=== PATIENT | female | born 1995 | race Hispanic/Latino ===

== ENCOUNTER 2021-03-16 13:52 | Emergency (ER) | payer BC, SELFPAY ==
--- NOTE | ~2021-03-16 | XR_ITS ---
EXAMINATION: XR foot RT min 3V EXAM DATE: 03/16/2021 14:20 INDICATION: rt 2nd toe pain from injury 2 weeks ago. TECHNIQUE: Right foot dorsoplantar, lateral and oblique projections obtained and reviewed. There is no prior study for comparison. FINDINGS: There is subacute fracture of the right 2nd metatarsal neck, with callus some immature call us formation, evidence of routine healing given history above. Essentially nondisplaced, and in anato jose alignment. No other fracture identified. No radiopaque foreign bodies identified. IMPRESSION: Right 2nd metatarsal neck subacute fracture. Reviewed, dictated and finalized at location B.
--- NOTE | 2021-03-16 14:03 | ED.LOWEXIN ---
HPI - Extremity Injury (Lower) General Chief Complaint: Extremity Injury, Lower Stated Complaint: right foot pain Time Seen by Provider: 03/16/21 14:03 Source: patient and RN notes reviewed Mode of arrival: ambulatory Limitations: no limitations History of Present Illness HPI Narrative: 25-year-old female presents to the ER with complaints of second toe right foot pain and states it is crooked, does not touch the ground. States that she kicked a bar 2 weeks ago and thought she just dislocated the toe at that time. Had it wrapped and states that the swelling has gone down but it still looks crooked to her. Related Data Home Medications Medication Instructions Recorded Confirmed acyclovir 400 mg PO BID PRN 03/16/21 03/16/21 metformin 1,000 mg PO BID 03/16/21 03/16/21 Allergies Allergy/AdvReac Type Severity Reaction Status Date / Time No Known Allergies Allergy Verified 03/16/21 14:25 Review of Systems Review of Systems: All systems reviewed & are unremarkable except as noted in HPI and below Constitutional: Constitutional: Reports no additional constitutional complaints, Denies chills and Denies fever(s) Eyes: Eyes: Reports no additional eye complaints ENT: Reports system reviewed and no additional complaints, except as documented Respiratory: Respiratory: Reports no additional respiratory complaints Musculoskeletal: Musculoskeletal: Reports as per HPI (Second toe right foot pain, swelling, crooked. ) Integumentary/Breasts: Skin/Breast: Reports system reviewed and no additional complaints, except as docu and Denies rash Neurologic: Reports system reviewed and no additional complaints, except as documented Psychiatric: Psychiatric: Reports no additional psychiatric complaints Allergic/Immunologic: Allergic/Immunologic: Reports no additional allergic/immunologic complaints PMFSH Past Medical History Medical History (Updated 03/17/21 @ 14:49 by Emma Quach) Diabetes Herpes Surgical History Surgical History (Updated 03/17/21 @ 14:45 by Emma Quach) No significant past surgical history Social History Social History (Updated 03/17/21 @ 14:45 by Emma Quach) Living arrangements: with family Exam Const: General: healthy appearing, no acute distress and alert Nutritional Appearance: well nourished Orientation/consciousness: patient oriented x3 Limitations: no limitations HENMT: Head: normal to inspection Eyes: Conjunctivae: conjunctivae normal Pupils: Equal, round and reactive pupils present Neck: Neck: normal visual inspection Chest: Chest palpation & inspection: normal inspection of the chest Resp: Effort & Inspection: normal respiratory effort and no use of accessory muscles Auscultation: clear to auscultation bilaterally, no crackles, no rales, no rhonchi and no wheezes Cardio: Rate: regular rate Rhythm: regular rhythm Skin: General skin exam: normal color Rashes: no rashes Wounds: no wounds Neuro: General: patient oriented x3, moves all extremities, no meningeal signs and no focal motor deficits Speech: normal speech Gait exam (Neuro): Normal gait present Extrem: General: normal to inspection Right lower extremity: foot Details: normal capillary refill, normal to inspection, toes with normal ROM and tendon exam Details: active flexion normal and active extension normal; no tenderness and no ecchymosis Psych: Appearance: grossly normal and well kempt Mental Status: mental status grossly normal Affect: normal affect Attitude: cooperative Thought content: Yes Normal thought content present Course Course Emergency Course: Discharge instructions reviewed with patient, as well as provided in writing per nursing staff. The instructions also include specific and strict return/GO TO THE ER as well as f/u information. All questions have been answered, and the patient deny any further questions with discharge and discharge plan. Vital Signs Vital signs: Vital Signs
[2021-03-16 14:05] VITALS: BP 131/84; PULSE 91; RESP 16; TEMP 35.6; O2SAT 99
== END 2021-03-16 14:46 | disposition home or self-care (01) ==
PROVIDERS: Emergency Provider Nurse Practitioner; PCP Internal Medicine Infectious Disease
DX: S92.321A Displaced fracture of second metatarsal bone, right foot, initial encounter for closed fracture (principal); W22.09XA Striking against other stationary object, initial encounter; E11.9 Type 2 diabetes mellitus without complications
CPT/HCPCS: 73630; 99213; G0463

== ENCOUNTER 2021-04-30 03:26 | Emergency (ER) | payer BC, SELFPAY ==
[2021-04-30 03:33] VITALS: BP 120/69; PULSE 87; RESP 18; TEMP 35.9; O2SAT 100
[2021-04-30 04:10] LABS: Basophils Percent Auto 0.2 % (0.2-1.2); Eosinophils Absolute Auto 0.1 K/mm3 (0-0.3); Eosinophils Percent Auto 0.7 % (0-4.4); Hematocrit 40.4 % (37.0-47.0); Hemoglobin 13.5 g/dL (12.0-15.0); Immature Granulocyte Absolute 0.06 K/mm3 (0.00-0.031); Immature Granulocyte Percent A 0.5 % (0-0.5); Lymphocytes Absolute Auto 4.29 K/mm3 (0.9-3.2); Lymphocytes Percent Auto 35.5 % (18.3-44.2); Mean Corpuscular HGB Conc 33.4 g/dl (32-36); Mean Corpuscular Hemoglobin 30.8 pg (26-34); Mean Corpuscular Volume 92.2 fl (80-100); Mean Platelet Volume 12.2 fl (7.4-10.4); Monocytes Absolute Auto 0.7 K/mm3 (0.1-0.6); Monocytes Percent Auto 5.6 % (2.6-8.5); Neutrophils Absolute Auto 6.9 K/mm3 (1.3-6.7); Neutrophils Percent Auto 57.5 % (45.5-73.1); Platelet Count Result 169 k/mm3 (150-375); Red Blood Count 4.38 M/mm3 (4.2-5.4); Red Cell Distribution Width 12.3 % (11.5-14.5); White Blood Count 12.1 K/mm3 (4.5-10.0)
[2021-04-30 04:20] LABS: Sodium 136 mmol/L (137-145)
[2021-04-30 04:21] LABS: Anion Gap 12 mmol/L (8-16); Blood Urea Nitrogen 20 mg/dL (7-17); Calcium 9.1 mg/dL (8.4-10.2); Carbon Dioxide 22 mmol/L (22-30); Chloride 102 mmol/L (98-107); Estimated Glomerular Filt Rate > 60; Glucose 231 mg/dL (65-110); Potassium 3.8 mmol/L (3.4-5.0)
--- NOTE | 2021-04-30 04:40 | PC.NURSE ---
0420 patient went outside to go get fresh air. Patient never returned. Patient not seen in waiting room or outside.
== END 2021-04-30 04:40 | disposition left against medical advice (07) ==
LOC: ANHED 05:25
PROVIDERS: Emergency Provider General Practice
DX: R55 Syncope and collapse (principal)
CPT/HCPCS: 36415; 80048; 85025; 99199

== ENCOUNTER 2022-04-20 22:54 | Emergency (ER) | payer OTHER, SELFPAY ==
[2022-04-20 22:58] VITALS: BP 145/93; PULSE 91; RESP 16; TEMP 36.8; O2SAT 100
--- NOTE | 2022-04-21 00:19 | ED.GENADULT ---
HPI - General Adult General Chief complaint: Nausea/Vomiting/Diarrhea Stated complaint: vomiting Time Seen by Provider: 04/21/22 00:09 History of Present Illness HPI narrative: 26-year-old female presenting the emergency department for evaluation of 2 days of nausea vomiting diarrhea lower back pain and lower abdominal pain. Patient states he is a type II diabetic on metformin. Patient also reports some blood when she wiped after urinating. Related Data Home Medications Medication Instructions Recorded Confirmed acyclovir 400 mg tablet 400 mg PO BID PRN Cold Sores 03/16/21 03/16/21 metformin 1,000 mg tablet 1,000 mg PO BID 03/16/21 03/16/21 Allergies Allergy/AdvReac Type Severity Reaction Status Date / Time No Known Allergies Allergy Verified 04/21/22 00:28 Review of Systems Review of Systems: CONSTITUTIONAL: Denies fever, chills, or sweats. EYES: Denies visual changes, redness, or discharge. ENT: Denies rhinorrhea, congestion, sore throat, or otalgia. CARDIOVASCULAR: Denies chest pain, palpitations, or edema. RESPIRATORY: Denies cough or dyspnea. GASTROINTESTINAL: Nausea vomiting diarrhea GENITOURINARY: Hematuria SKIN: Denies rash or itching. MUSCULOSKELETAL: Lower back pain NEUROLOGIC: Denies headache, numbness, or weakness. [facility] Past Medical History Medical History (Updated 04/21/22 @ 02:16 by Malik Wang MD) Diabetes Herpes Surgical History Surgical History (Updated 03/17/21 @ 14:45 by Emma Quach APRN) No significant past surgical history Exam Narrative: APPEARANCE: Well appearing, no pain, no distress, well-nourished. HEAD: normocephalic, atraumatic. EYES: PERRLA/EOMI, conjunctivae clear. NOSE: Normal no drainage NECK: Supple. No adenopathy, no masses. RESPIRATORY: Airway patent, respirations nonlabored. Clear to auscultation bilaterally, no rales, rhonchi, wheezing. CARDIOVASCULAR: Regular rate and rhythm without murmurs rubs or gallops. ABDOMINAL: Soft, lower abdominal tenderness MUSCULOSKELETAL: Moves all extremities. Strength/ROM intact, No edema, No calf tenderness. NEURO: Alert. Cranial nerves II through XII intact. Grossly intact SKIN: Warm, dry. Normal Color Course Course Emergency Course: Patient was offered admission for suspected pyelonephritis and patient declined. Patient is tolerating p.o. Patient was treated with IV Rocephin and will be provided Keflex and Zofran for home. Patient was encouraged to have close follow-up with her primary care physician. Vital Signs Vital signs: Vital Signs Temperature 98.2 F 04/20/22 22:58 Pulse Rate 91 04/20/22 22:58 Respiratory Rate 16 04/20/22 22:58 Blood Pressure 145/93 H 04/20/22 22:58 Pulse Oximetry 100 04/20/22 22:58 Oxygen Delivery Room Air 04/20/22 22:58 Temperature 98.2 F 04/20/22 22:58 Pulse Rate 85 04/21/22 02:31 Respiratory Rate 16 04/21/22 02:31 Blood Pressure 115/70 04/21/22 02:31 Pulse Oximetry 100 04/21/22 02:31 Oxygen Delivery Room Air 04/20/22 22:58 Medical Decision Making Vital Signs Vital Signs: Vital Signs Temperature 98.2 F 04/20/22 22:58 Pulse Rate 91 04/20/22 22:58 Respiratory Rate 16 04/20/22 22:58 Blood Pressure 145/93 H 04/20/22 22:58 Pulse Oximetry 100 04/20/22 22:58 Oxygen Delivery Room Air 04/20/22 22:58 Temperature 98.2 F 04/20/22 22:58 Pulse Rate 85 04/21/22 02:31 Respiratory Rate 16 04/21/22 02:31 Blood Pressure 115/70 04/21/22 02:31 Pulse Oximetry 100 04/21/22 02:31 Oxygen Delivery Room Air 04/20/22 22:58 Lab Data Lab results reviewed: Yes I reviewed the patient's lab results. Result diagrams: 04/21/22 00:38 04/21/22 00:38 Labs: Lab Results 04/21/22 04/21/22 04/21/22 Range/Units 00:38 00:38 00:38 WBC 19.0 H (4.5-10.0) K/mm3 RBC 4.86 (4.2-5.4) M/mm3 Hgb 14.2 (12.0-15.0) g/dL Hct 42.8 (37.0-47.0) % MCV 88.1 (80-100) fl
[2022-04-21] MEDS: ONDANSETRON INJ 4 MG/2 ML VIAL IV PUSH (00:36)
[2022-04-21] MEDS: SODIUM CHLORIDE 0.9% IV 1,000 ML 999 ML IV CONT ×2 (00:36→01:36)
[2022-04-21 00:37] VITALS: BP 143/88; PULSE 79; RESP 16; O2SAT 100
[2022-04-21 00:46] LABS: Basophils Percent Auto 0.2 % (0.2-1.2); Eosinophils Percent Auto 0.2 % (0-4.4); Hematocrit 42.8 % (37.0-47.0); Hemoglobin 14.2 g/dL (12.0-15.0); Immature Granulocyte Absolute 0.13 K/mm3 (0.00-0.031); Immature Granulocyte Percent A 0.7 % (0-0.5); Lymphocytes Absolute Auto 2.88 K/mm3 (0.9-3.2); Lymphocytes Percent Auto 15.1 % (18.3-44.2); Mean Corpuscular HGB Conc 33.2 g/dl (32-36); Mean Corpuscular Hemoglobin 29.2 pg (26-34); Mean Corpuscular Volume 88.1 fl (80-100); Mean Platelet Volume 11.3 fl (7.4-10.4); Monocytes Absolute Auto 0.7 K/mm3 (0.1-0.6); Monocytes Percent Auto 3.5 % (2.6-8.5); Neutrophils Absolute Auto 15.3 K/mm3 (1.3-6.7); Neutrophils Percent Auto 80.3 % (45.5-73.1); Platelet Count Result 228 k/mm3 (150-375); Red Blood Count 4.86 M/mm3 (4.2-5.4); Red Cell Distribution Width 12.2 % (11.5-14.5)
[2022-04-21 00:49] LABS: Appearance Urine Cloudy (Clear); Bilirubin Urine 1+ (Negative); Blood Urine 2+ (Negative); Color Urine Yellow (Yellow); Glucose Urine UA Negative (Negative); Ketones Urine 4+ mg/dL (Negative); Leukocyte Esterase Ur Trace LEU/UL (Negative); Nitrate Urine Negative (Negative); Protein Urine 2+ mg/dL (Negative); Specific Grav Ur 1.025 (1.001-1.035); Urobilinogen Urine 0.2 mg/dL (<2.0)
[2022-04-21 00:54] LABS: Bacteria Urine Trace /hpf; Mucus Urine Few /lpf; RBC Urine 21-50 /hpf (0-2); Squamous Epithelial Cell Urine Many /hpf (Few)
[2022-04-21 00:56] LABS: Add Urine Microscopic? YES
[2022-04-21 00:59] LABS: Alanine Aminotransferase 24 U/L (6-35); Albumin Level 4.8 g/dL (3.5-5.1); Alkaline Phosphatase 66 U/L (38-126); Anion Gap 15 mmol/L (8-16); Aspartate Amino Transferase 26 U/L (14-36); Bilirubin,Total 0.9 mg/dL (0.2-1.3); Blood Urea Nitrogen 18 mg/dL (7-17); Calcium 9.3 mg/dL (8.4-10.2); Carbon Dioxide 24 mmol/L (22-30); Chloride 101 mmol/L (98-107); Estimated CRCL calculation 106 ml/min; Estimated Glomerular Filt Rate > 60; Glucose 218 mg/dL (65-110); Lipase 57 U/L (23-300); Potassium 3.9 mmol/L (3.4-5.0); Sodium 140 mmol/L (137-145)
[2022-04-21 02:31] VITALS: BP 115/70; PULSE 85; RESP 16; O2SAT 100
== END 2022-04-21 02:34 | disposition home or self-care (01) ==
PROVIDERS: Emergency Provider Emergency Medicine; PCP Internal Medicine Infectious Disease
DX: N12 Tubulo-interstitial nephritis, not specified as acute or chronic (principal); N30.01 Acute cystitis with hematuria; E11.9 Type 2 diabetes mellitus without complications; Z79.84 Long term (current) use of oral hypoglycemic drugs
CPT/HCPCS: 36415; 80053; 81001; 81025; 83690; 85025; 87086; 87088; 96365; 96375; 99284; J0696; J2405; J7030

== ENCOUNTER 2022-05-02 08:45 | Emergency (ER) | payer OTHER, SELFPAY ==
[2022-05-02 09:19] VITALS: BP 150/89; PULSE 79; RESP 14; TEMP 36.4
[2022-05-02 09:24] VITALS: BP 150/89; O2SAT 100
[2022-05-02 09:25] VITALS: O2SAT 99
[2022-05-02 09:25] LABS: Basophils Percent Auto 0.2 % (0.2-1.2); Eosinophils Absolute Auto 0.1 K/mm3 (0-0.3); Hematocrit 39.5 % (37.0-47.0); Hemoglobin 12.9 g/dL (12.0-15.0); Immature Granulocyte Absolute 0.04 K/mm3 (0.00-0.031); Immature Granulocyte Percent A 0.4 % (0-0.5); Lymphocytes Percent Auto 25.7 % (18.3-44.2); Mean Corpuscular HGB Conc 32.7 g/dl (32-36); Mean Corpuscular Hemoglobin 29.2 pg (26-34); Mean Corpuscular Volume 89.4 fl (80-100); Mean Platelet Volume 12.1 fl (7.4-10.4); Monocytes Absolute Auto 0.5 K/mm3 (0.1-0.6); Monocytes Percent Auto 5.2 % (2.6-8.5); Neutrophils Absolute Auto 6.6 K/mm3 (1.3-6.7); Neutrophils Percent Auto 67.5 % (45.5-73.1); Platelet Count Result 162 k/mm3 (150-375); Red Blood Count 4.42 M/mm3 (4.2-5.4); Red Cell Distribution Width 12.5 % (11.5-14.5); White Blood Count 9.7 K/mm3 (4.5-10.0)
--- NOTE | 2022-05-02 09:27 | ED.FEMALEGU ---
HPI - Female Genitourinary General Chief complaint: Urogenital-Female Stated complaint: UTI plus bleeding urine, bilateral flank pain Time Seen by Provider: 05/02/22 09:11 Source: patient Mode of arrival: ambulatory Limitations: no limitations History of Present Illness HPI Narrative: This is a 26 year old female that presents to the ER for blood in the urine noted over the last week. Associated with flank pain. Reports she was evaluated in the ER here and diagnosed with pyelonephritis. Started on an oral antibiotic. Reports she has continued to see blood. She is actually unsure if the blood is in her urine or if she is on her menstrual cycle. She is not having any pain or burning with urination. Denies fevers or vomiting. Related Data Home Medications Medication Instructions Recorded Confirmed acyclovir 400 mg tablet 400 mg PO BID PRN Cold Sores 03/16/21 03/16/21 metformin 1,000 mg tablet 1,000 mg PO BID 03/16/21 03/16/21 Allergies Allergy/AdvReac Type Severity Reaction Status Date / Time No Known Allergies Allergy Verified 04/21/22 00:28 Review of Systems Review of Systems: CONSTITUTIONAL: Denies fever GASTROINTESTINAL: Denies abdominal pain, nausea, vomiting GENITOURINARY: Report hematuria. Denies dysuria All systems reviewed & are unremarkable except as noted in HPI and below PMFSH Past Medical History Medical History (Updated 05/02/22 @ 12:13 by Marti Ford PA-C) Diabetes Herpes Surgical History Surgical History (Updated 03/17/21 @ 14:45 by Emma Quach, JESUS MANUEL) No significant past surgical history Social History Social History (Updated 05/02/22 @ 09:32 by Marti Ford PA-C) Smoking status: Never smoker Exam Narrative: GENERAL: Well-appearing, well-nourished, and in no acute distress. HEAD: Normocephalic, atraumatic. EYES: EOMI. CHEST: Clear to auscultation. No respiratory distress. No wheezes rales or rhonchi HEART: Regular rate and rhythm. No murmur heard. Normal peripheral pulses. ABDOMEN: Soft, nontender, nondistended, normal active bowel sounds. No CVA tenderness EXTREMITIES: Normal range of motion. No edema. SKIN: Warm, dry, no rash. NEURO: No focal deficits. Alert and oriented x3. PSYCH: Normal mood and affect PELVIC: Normal external genitalia. Small amount of dark red blood in the vaginal vault Course Vital Signs Vital signs: Vital Signs Temperature 97.6 F 05/02/22 09:19 Pulse Rate 79 05/02/22 09:19 Respiratory Rate 14 05/02/22 09:19 Blood Pressure 150/89 H 05/02/22 09:19 Temperature 97.6 F 05/02/22 09:19 Pulse Rate 79 05/02/22 09:19 Respiratory Rate 14 05/02/22 09:19 Blood Pressure 121/79 05/02/22 09:31 Pulse Oximetry 99 05/02/22 09:45 MDM - Female Genitourinary MDM Narrative Medical decision making narrative: Patient presents to the emergency department for what she thought was continued blood in her urine. On exam patient is on her menstrual cycle. Reports she has a regular menses due to having a Nexplanon. Her urine has no signs of infection today. She is afebrile and nontoxic-appearing. Her vitals are stable. CBC is without leukocytosis. Metabolic panel without concerning findings. Bedside test is negative. Abdominal exam is benign. 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 She was given warnings to return to the ER Lab Data Attestation: I reviewed the patient's lab results. Result diagrams: 05/02/22 09:17 05/02/22 09:17 Labs: Lab Results 05/02/22 05/02/22 05/02/22 Range/Units 09:10 09:17 09:17 WBC 9.7 (4.5-10.0) K/mm3 RBC 4.42 (4.2-5.4) M/mm3 Hgb 12.9 (12.0-15.0) g/dL Hct 39.5 (37.0-47.0) % MCV 89.4 (80-100) fl MCH 29.2 (26-34) pg MCHC 32.7 (32-36) g/dl RDW 12.5 (11.5-14.5) % Plt Count 162 (150-375) k/mm3 MPV 12.1 H (7.4-10.4) fl Immature Gran % (Auto) 0.4 (0-0.5)
[2022-05-02 09:30] VITALS: O2SAT 99
[2022-05-02 09:31] VITALS: BP 121/79; O2SAT 100
[2022-05-02 09:33] LABS: Add Urine Microscopic? YES; Appearance Urine Cloudy (Clear); Bilirubin Urine Negative (Negative); Blood Urine 2+ (Negative); Color Urine Red (Yellow); Glucose Urine UA Negative (Negative); Ketones Urine Negative (Negative); Leukocyte Esterase Ur Negative LEU/UL (Negative); Nitrate Urine Negative (Negative); Protein Urine 1+ mg/dL (Negative); RBC Urine >75 /hpf (0-2); Specific Grav Ur 1.013 (1.001-1.035); Squamous Epithelial Cell Urine Many /hpf (Few); Urobilinogen Urine Negative mg/dL (<2.0)
[2022-05-02 09:34] LABS: Anion Gap 8 mmol/L (8-16); Blood Urea Nitrogen 10 mg/dL (7-17); Calcium 8.7 mg/dL (8.4-10.2); Carbon Dioxide 22 mmol/L (22-30); Chloride 107 mmol/L (98-107); Estimated CRCL calculation 130 ml/min; Estimated Glomerular Filt Rate > 60; Glucose 173 mg/dL (65-110); Potassium 4.5 mmol/L (3.4-5.0); Sodium 137 mmol/L (137-145)
[2022-05-02 09:45] VITALS: O2SAT 99
[2022-05-02 11:48] LABS: Pregnancy On Board Control Positive; Urine Pregnancy Test Negative
== END 2022-05-02 12:25 | disposition home or self-care (01) ==
PROVIDERS: Physician Assistant; Emergency Provider Emergency Medicine; PCP Internal Medicine Infectious Disease
DX: N92.6 Irregular menstruation, unspecified (principal); E11.9 Type 2 diabetes mellitus without complications; B00.9 Herpesviral infection, unspecified; Z79.84 Long term (current) use of oral hypoglycemic drugs
CPT/HCPCS: 36415; 80048; 81001; 81025; 85025; 87086; 87088; 99283

== ENCOUNTER 2022-08-08 07:04 | Emergency (ER) | payer OTHER, SELFPAY ==
--- NOTE | ~2022-08-08 | CT_ITS ---
CT Abdomen and Pelvis with contrast. History: Abdominal pain. Spiral CT of the abdomen and pelvis was performed after the administration of intravenous contrast. 1 00 cc of Omnipaque 350 was administered intravenously without complication. Dose reduction technique was used on this scan by utilizing automated exposure control and iterative reconstruction technique. The dose-length product (DLP) was 425.42 mGy-cm. Findings: Scans through the lung bases demonstrate mild atelectatic change. The liver, spleen, pancreas, gallbladder, adrenals and kidneys are within normal limits. No evidence of aortic aneurysm. No lymphadenopathy is seen. There is no evidence of bowel obstruction. There is no evidence to suggest acute appendicitis or dive rticulitis. Images through the pelvis were performed. Urinary bladder unremarkable. No adnexal mass seen. No asci wayne. No ascites is seen. Impression: No significant abnormalities seen. Reviewed, dictated and finalized at [facility]. [employer] Impression: No significant abnormalities seen.
[2022-08-08 07:27] VITALS: BP 125/78; PULSE 61; RESP 17; TEMP 36.6; O2SAT 99
--- NOTE | 2022-08-08 07:44 | PC.NURSE ---
Pt. ambulatory to bathroom, gait steady.
[2022-08-08] MEDS: SODIUM CHLORIDE 0.9% IV 1,000 ML 999 ML IV CONT ×2 (07:50→08:59)
[2022-08-08 07:53] LABS: Basophils Percent Auto 0.3 % (0.2-1.2); Eosinophils Absolute Auto 0.1 K/mm3 (0-0.3); Hematocrit 41.7 % (37.0-47.0); Hemoglobin 14.3 g/dL (12.0-15.0); Immature Granulocyte Absolute 0.05 K/mm3 (0.00-0.031); Immature Granulocyte Percent A 0.5 % (0-0.5); Lymphocytes Absolute Auto 2.74 K/mm3 (0.9-3.2); Lymphocytes Percent Auto 25.2 % (18.3-44.2); Mean Corpuscular HGB Conc 34.3 g/dl (32-36); Mean Corpuscular Hemoglobin 30.5 pg (26-34); Mean Corpuscular Volume 88.9 fl (80-100); Mean Platelet Volume 12.3 fl (7.4-10.4); Monocytes Absolute Auto 0.6 K/mm3 (0.1-0.6); Monocytes Percent Auto 5.8 % (2.6-8.5); Neutrophils Absolute Auto 7.3 K/mm3 (1.3-6.7); Neutrophils Percent Auto 67.2 % (45.5-73.1); Platelet Count Result 143 k/mm3 (150-375); Red Blood Count 4.69 M/mm3 (4.2-5.4); White Blood Count 10.9 K/mm3 (4.5-10.0)
[2022-08-08 08:03] VITALS: BP 112/59; PULSE 74; RESP 20; O2SAT 100
[2022-08-08 08:06] LABS: Appearance Urine Slightly Cloudy (Clear); Bilirubin Urine Negative (Negative); Blood Urine 2+ (Negative); Color Urine Yellow (Yellow); Glucose Urine UA 3+ mg/dL (Negative); Ketones Urine 2+ mg/dL (Negative); Leukocyte Esterase Ur Negative LEU/UL (Negative); Nitrate Urine Negative (Negative); Protein Urine Trace mg/dL (Negative); Urobilinogen Urine 0.2 mg/dL (<2.0)
[2022-08-08 08:11] LABS: Bacteria Urine Trace /hpf; Mucus Urine Rare /lpf; Squamous Epithelial Cell Urine Many /hpf (Few); WBC Urine 0-3 /hpf
[2022-08-08 08:12] LABS: Add Urine Microscopic? YES
[2022-08-08 08:17] LABS: Alanine Aminotransferase 29 U/L (6-35); Albumin Level 4.1 g/dL (3.5-5.1); Alkaline Phosphatase 76 U/L (38-126); Anion Gap 11 mmol/L (8-16); Aspartate Amino Transferase 37 U/L (14-36); Bilirubin,Total 0.6 mg/dL (0.2-1.3); Blood Urea Nitrogen 17 mg/dL (7-17); Calcium 8.3 mg/dL (8.4-10.2); Carbon Dioxide 19 mmol/L (22-30); Chloride 109 mmol/L (98-107); Estimated CRCL calculation 179 ml/min; Estimated Glomerular Filt Rate > 60; Glucose 179 mg/dL (65-110); Lactic Acid Reflex 1.8 mmol/L (0.7-2.0); Sodium 139 mmol/L (137-145)
[2022-08-08 08:17] LABS: Pregnancy On Board Control Positive; Urine Pregnancy Test Negative
--- NOTE | 2022-08-08 08:37 | ED.GENADULT ---
HPI - General Adult General Chief complaint: Abdominal Pain Stated complaint: abd/back pain, high BS Time Seen by Provider: 08/08/22 07:15 History of Present Illness HPI narrative: 26-year-old female presenting to the emergency department for evaluation of lower abdominal pain. Patient states she has had intermittent constipation and diarrhea over the last few days. Patient is diabetic and states her blood sugars have been running high. Patient's blood sugars were 190 today, patient reports a few days ago they were running greater than 200. Related Data Home Medications Medication Instructions Recorded Confirmed acyclovir 400 mg tablet 400 mg PO BID PRN Cold Sores 03/16/21 03/16/21 metformin 1,000 mg tablet 1,000 mg PO BID 03/16/21 03/16/21 Allergies Allergy/AdvReac Type Severity Reaction Status Date / Time No Known Allergies Allergy Verified 08/08/22 09:13 Review of Systems Review of Systems: CONSTITUTIONAL: Denies fever, chills, or sweats. EYES: Denies visual changes, redness, or discharge. ENT: Denies rhinorrhea, congestion, sore throat, or otalgia. CARDIOVASCULAR: Denies chest pain, palpitations, or edema. RESPIRATORY: Denies cough or dyspnea. GASTROINTESTINAL: See HPI GENITOURINARY: Denies dysuria or hematuria. SKIN: Denies rash or itching. MUSCULOSKELETAL: Denies back pain, joint pain, or myalgia. NEUROLOGIC: Denies headache, numbness, or weakness. [facility] Past Medical History Medical History (Updated 08/08/22 @ 11:23 by Malik Wang MD) Diabetes Herpes Surgical History Surgical History (Updated 03/17/21 @ 14:45 by Emma Quach APRN) No significant past surgical history Social History Social History (Updated 05/02/22 @ 09:32 by Marti Ford PA-C) Smoking status: Never smoker Living arrangements: with family Exam Narrative: APPEARANCE: Well appearing, no pain, no distress, well-nourished. HEAD: normocephalic, atraumatic. EYES: PERRLA/EOMI, conjunctivae clear. NOSE: Normal no drainage NECK: Supple. No adenopathy, no masses. RESPIRATORY: Airway patent, respirations nonlabored. Clear to auscultation bilaterally, no rales, rhonchi, wheezing. CARDIOVASCULAR: Regular rate and rhythm without murmurs rubs or gallops. ABDOMINAL: Soft, nontender, nondistended, normal bowel sounds MUSCULOSKELETAL: Moves all extremities. Strength/ROM intact, No edema, No calf tenderness. NEURO: Alert. Cranial nerves II through XII intact. Grossly intact SKIN: Warm, dry. Normal Color Course Course Emergency Course: Patient was afebrile with a leukocytosis of 10.9. Patient did feel improved with rehydration with IV fluids. Patient's labs were similar to her baseline. UA shows ketones but no significant evidence of urinary tract infection. Patient was updated the results of her work-up. CT scan showed no evidence of small bowel obstruction or significant constipation. Reexamination shows patient has a soft nontender abdomen. Patient was updated on advised to follow a clear liquid diet. Patient was also advised of close follow-up with her primary care physician. All questions concerns were addressed. Patient was well-appearing at time of discharge from the emergency department. Vital Signs Vital signs: Vital Signs Temperature 98 F 08/08/22 07:27 Pulse Rate 61 08/08/22 07:27 Respiratory Rate 17 08/08/22 07:27 Blood Pressure 125/78 08/08/22 07:27 Pulse Oximetry 99 08/08/22 07:27 Oxygen Delivery Room Air 08/08/22 07:27 Temperature 98 F 08/08/22 07:27 Pulse Rate 68 08/08/22 09:45 Respiratory Rate 20 08/08/22 09:45 Blood Pressure 137/88 08/08/22 09:45 Pulse Oximetry 98 08/08/22 09:45 Oxygen Delivery Room Air 08/08/22 07:27 Medical Decision Making Vital Signs Vital Signs: Vital Signs Temperature 98 F 08/08/22 07:27 Pulse Rate 61 08/08/22 07:27 Respiratory Rate 17 08/08/22 07:27 Blood Pressure 125/78 08/08/22 07:27 Pulse Oximetry
[2022-08-08 09:31] VITALS: BP 111/78; PULSE 73; RESP 23; O2SAT 100
[2022-08-08 09:45] VITALS: BP 137/88; PULSE 68; RESP 20; O2SAT 98
== END 2022-08-08 11:43 | disposition home or self-care (01) ==
PROVIDERS: Emergency Provider Emergency Medicine; PCP Internal Medicine Infectious Disease
DX: K59.00 Constipation, unspecified (principal); R19.7 Diarrhea, unspecified; E86.0 Dehydration; E11.9 Type 2 diabetes mellitus without complications
CPT/HCPCS: 36415; 74177; 80053; 81001; 81025; 83605; 85025; 96360; 96361; 99284; J7030; Q9967

== ENCOUNTER 2022-08-16 13:05 | Emergency (ER) | payer OTHER, SELFPAY ==
[2022-08-16 13:15] VITALS: BP 116/72; PULSE 87; RESP 16; TEMP 36.4; O2SAT 100
--- NOTE | 2022-08-16 13:33 | ED.ABDPAIN ---
HPI - Abdominal Pain General Chief Complaint: Abdominal Pain Stated Complaint: Abdominal Pain/Nausea/Diarrhea Time Seen by Provider: 08/16/22 13:33 Source: patient Mode of arrival: ambulatory Limitations: no limitations History of Present Illness HPI narrative: 26-year-old female presents with complaint of going back and forth between diarrhea and constipation for the last 2 weeks. States last week she had the same symptoms and was seen in the ER. She was dehydrated and was given 2 L normal saline. Patient states today she was was having appointment with an acid tender but went up to the building and it was closed. She thinks that her primary care physician wrote down the wrong appointment time for her. She has been on Jardiance and metformin for several years for her diabetes. She does not feel that medications are causing her bowel symptoms due to never having anything like this before. She states that she is avoiding taking MiraLax and antidiarrheals to treat constipation and diarrhea due to the medications making symptoms worse. She has no abdominal pain at this time. She states that due to acid tender office being close today she came here for another opinion. States that she had a CT scan also in the ER that was normal. She was told to do a clear liquid diet and she does not know if she should continue this. She also states that she has a Nexplanon but has had some vaginal bleeding the past few days which to be a. For that she has not had for several months. She has no concerns for or STI. All systems reviewed and negative except as noted above. Related Data Home Medications Medication Instructions Recorded Confirmed empagliflozin 25 mg tablet mg 08/16/22 (Jardiance) metformin 500 mg tablet,extended mg PO 08/16/22 release 24 hr Allergies Allergy/AdvReac Type Severity Reaction Status Date / Time No Known Allergies Allergy Verified 08/16/22 13:21 Review of Systems Review of Systems: CONSTITUTIONAL: Denies fever, chills, or sweats. EYES: Denies visual changes, redness, or discharge. ENT: Denies rhinorrhea, congestion, sore throat, or otalgia. CARDIOVASCULAR: Denies chest pain, palpitations, or edema. RESPIRATORY: Denies cough or dyspnea. GASTROINTESTINAL: Reports abdominal pain, diarrhea and constipation. denies nausea vomiting. GENITOURINARY: Denies dysuria or hematuria. SKIN: Denies rash or itching. MUSCULOSKELETAL: Denies back pain, joint pain, or myalgia. NEUROLOGIC: Denies headache, numbness, or weakness. PSYCHIATRIC: Denies anxiety or depression. All other systems reviewed are negative, except as documented in HPI. [facility] Past Medical History Medical History (Updated 08/16/22 @ 13:57 by Talita Berg NP) Diabetes Herpes Surgical History Surgical History (Updated 03/17/21 @ 14:45 by Emma Quach APRN) No significant past surgical history Social History Social History (Updated 05/02/22 @ 09:32 by Marti Ford PA-C) Smoking status: Never smoker Living arrangements: with family Comments At time of signature, agree with nursing past medical, surgical, social and family history. There is no relevant family history pertinent to the presenting complaint. Exam Narrative: GENERAL: This is a well-nourished, well-developed patient, in no apparent distress. HEAD: normocephalic, atraumatic. EYES: PERRL. Sclera clear/white. Vision is grossly intact. EARS: External ears normal NOSE: External nose normal NECK: Neck supple, non-tender without lymphadenopathy, masses or thyromegaly. CARDIOVASCULAR: Regular rate and rhythm without murmurs, gallops, or rubs. RESPIRATORY: Clear to auscultation. Breath sounds equal bilaterally. No wheezes, rales, or rhonchi. GASTROINTESTINAL: Abdomen soft, non-tender, nondistended. Bowel sounds are active. No hepato-splenomegaly, or palpable masses. No guarding. SKIN: warm, Dry, intact with no suspicious lesions or lenny
[2022-08-16 13:56] LABS: Glucose Point of Care 120 mg/dl (65-105)
== END 2022-08-16 14:02 | disposition home or self-care (01) ==
PROVIDERS: Emergency Provider Nurse Practitioner Family; PCP Internal Medicine Infectious Disease
DX: K58.9 Irritable bowel syndrome, unspecified (principal); E11.9 Type 2 diabetes mellitus without complications
CPT/HCPCS: 81003; 82948; 99212; G0463

== ENCOUNTER 2022-08-24 11:09 | Emergency (ER) | payer OTHER, SELFPAY ==
--- NOTE | ~2022-08-24 | CT_ITS ---
EXAMINATION: CT abdomen pelvis wo con DATE: 08/24/2022 14:00 INDICATION: Flank pain. Hematuria. TECHNIQUE: Computed tomography (CT) of the abdomen and pelvis was performed without intravenous contr ast. Automated exposure control and iterative reconstruction technique were employed. The dose-length product was 204.25 mGy-cm. COMPARISON: CT abdomen and pelvis 08/08/2022 FINDINGS: The visualized portions of the lung bases are clear without pneumonia or pleural effusion. The heart size is normal. No pericardial effusion. There is diffuse hepatic steatosis. The gallbladde r, spleen, pancreas, adrenal glands, and kidneys are normal. There are no dilated loops of bowel. The appendix is normal. There are no pathologically enlarged lymph nodes. There is no free intraperitone al fluid. There is levoscoliosis of thoracolumbar spine. IMPRESSION: 1. No urolithiasis. 2. Diffuse hepatic steatosis. Reviewed, dictated and finalized at location [facility]. [employer]
[2022-08-24 11:14] VITALS: BP 132/86; PULSE 90; RESP 18; TEMP 36.8; O2SAT 100
[2022-08-24 13:19] LABS: Bacteria Urine Trace /hpf; Mucus Urine Rare /lpf; Squamous Epithelial Cell Urine Occasional /hpf (Few)
--- NOTE | 2022-08-24 13:43 | ED.GENADULT ---
HPI - General Adult General Chief complaint: Urogenital-Female Stated complaint: blood in urine Time Seen by Provider: 08/24/22 12:48 Source: RN notes reviewed History of Present Illness HPI narrative: Patient presents emergency department from home for hematuria. Patient states he went to see her PCP yesterday states she has been experiencing some bilateral lower flank pain as well as lower abdomen pain since blood work and a UA was obtained that showed hematuria and she was sent to the ER for further evaluation. Patient states her PCP was concerned about a possible kidney stone she states that she has had no fevers or chills she denies any chest pain or shortness of breath denies any nausea vomiting diarrhea. States the pain is described as aching in the bilateral lower flanks with radiation around to the abdomen nothing makes the pain better or worse Related Data Home Medications Medication Instructions Recorded Confirmed empagliflozin 25 mg tablet mg 08/16/22 (Jardiance) metformin 500 mg tablet,extended mg PO 08/16/22 release 24 hr Allergies Allergy/AdvReac Type Severity Reaction Status Date / Time No Known Allergies Allergy Verified 08/16/22 13:21 Review of Systems Review of Systems: Gen.: Denies fevers or chills ENT: Denies congestion Respiratory: Denies shortness of breath or cough CV: Denies chest pain GI: Reports lower abdominal pain, denies nausea, emesis or diarrhea reports flank pain reports hematuria Musculoskeletal: Denies joint or muscle pain Neuro: Denies numbness, tingling, weakness or focal weakness Skin: Denies rash Except as documented, all other systems reviewed and negative [facility] Past Medical History Medical History (Updated 08/24/22 @ 16:13 by Jareth Burroughs DO) Diabetes Herpes Surgical History Surgical History (Updated 03/17/21 @ 14:45 by Emma Quach APRN) No significant past surgical history Social History Social History (Updated 05/02/22 @ 09:32 by Marti Ford PA-C) Smoking status: Never smoker Living arrangements: with family Exam Narrative: APPEARANCE: No acute distress, nontoxic, resting in bed EYES: EOMI HEENT: Normocephalic, atraumatic, OMM RESPIRATORY: No respiratory distress Clear to auscultation bilaterally with no rhonchi wheezing or rales. CARDIOVASCULAR: Regular rate and rhythm without murmurs rubs or gallops. ABDOMINAL: Soft, nontender, nondistended, no rebound or guarding mild flank tenderness bilaterally MUSCULOSKELETAl: Moves all extremities. No clubbing, cyanosis or edema. NEURO: Awake and alert. Following commands, speech normal, no focal deficits SKIN:: Warm, dry. No rashes lesions or abrasions PSYCHIATRIC: Normal affect/mood, Course Course Emergency Course: Reviewed with patient findings of lab results we discussed her hematuria patient is a known diabetic she denies being on her menstrual cycle at this time with continued mild blood in urine with no signs of a urinary tract infection I will have the patient follow-up with urology Discussed with patient results of workup and diagnosis. Discussed need for follow-up with primary care, proper use of medication, and reasons to return to the emergency department. Patient understands and agrees to current treatment plan Vital Signs Vital signs: Vital Signs Temperature 98.3 F 08/24/22 11:14 Pulse Rate 90 08/24/22 11:14 Respiratory Rate 18 08/24/22 11:14 Blood Pressure 132/86 08/24/22 11:14 Pulse Oximetry 100 08/24/22 11:14 Oxygen Delivery Room Air 08/24/22 11:14 Temperature 98.3 F 08/24/22 11:14 Pulse Rate 90 08/24/22 11:14 Respiratory Rate 18 08/24/22 11:14 Blood Pressure 132/86 08/24/22 11:14 Pulse Oximetry 100 08/24/22 11:14 Oxygen Delivery Room Air 08/24/22 11:14 Medical Decision Making MDM Narrative Medical decision making narrative: Patient presents for hematuria with mild lower abdominal pain and flank pain urine
[2022-08-24 14:01] LABS: Appearance Urine Clear (Clear); Bilirubin Urine Negative (Negative); Blood Urine 2+ (Negative); Color Urine Yellow (Yellow); Glucose Urine UA 3+ mg/dL (Negative); Ketones Urine 1+ mg/dL (Negative); Leukocyte Esterase Ur Negative LEU/UL (Negative); Nitrate Urine Negative (Negative); Protein Urine 2+ mg/dL (Negative); Specific Grav Ur 1.025 (1.001-1.035); Urobilinogen Urine 0.2 mg/dL (<2.0)
[2022-08-24 14:03] LABS: Add Urine Microscopic? YES
[2022-08-24 15:29] LABS: Basophils Percent Auto 0.4 % (0.2-1.2); Eosinophils Absolute Auto 0.2 K/mm3 (0-0.3); Hematocrit 42.3 % (37.0-47.0); Hemoglobin 14.1 g/dL (12.0-15.0); Immature Granulocyte Absolute 0.02 K/mm3 (0.00-0.031); Immature Granulocyte Percent A 0.3 % (0-0.5); Lymphocytes Absolute Auto 2.66 K/mm3 (0.9-3.2); Lymphocytes Percent Auto 33.5 % (18.3-44.2); Mean Corpuscular HGB Conc 33.3 g/dl (32-36); Mean Platelet Volume 11.6 fl (7.4-10.4); Monocytes Absolute Auto 0.8 K/mm3 (0.1-0.6); Monocytes Percent Auto 9.6 % (2.6-8.5); Neutrophils Absolute Auto 4.3 K/mm3 (1.3-6.7); Neutrophils Percent Auto 54.2 % (45.5-73.1); Platelet Count Result 154 k/mm3 (150-375); Red Blood Count 4.86 M/mm3 (4.2-5.4); Red Cell Distribution Width 12.5 % (11.5-14.5); White Blood Count 7.9 K/mm3 (4.5-10.0)
[2022-08-24 15:39] LABS: Alanine Aminotransferase 33 U/L (6-35); Albumin Level 4.5 g/dL (3.5-5.1); Alkaline Phosphatase 68 U/L (38-126); Anion Gap 8 mmol/L (8-16); Aspartate Amino Transferase 32 U/L (14-36); Bilirubin,Total 0.6 mg/dL (0.2-1.3); Blood Urea Nitrogen 12 mg/dL (7-17); Calcium 8.7 mg/dL (8.4-10.2); Carbon Dioxide 24 mmol/L (22-30); Chloride 107 mmol/L (98-107); Estimated CRCL calculation 130 ml/min; Estimated Glomerular Filt Rate > 60; Glucose 133 mg/dL (65-110); Potassium 3.9 mmol/L (3.4-5.0); Sodium 139 mmol/L (137-145)
== END 2022-08-24 16:28 | disposition home or self-care (01) ==
PROVIDERS: Emergency Provider Emergency Medicine; PCP Internal Medicine Infectious Disease
DX: R31.9 Hematuria, unspecified (principal); R10.9 Unspecified abdominal pain; K76.0 Fatty (change of) liver, not elsewhere classified; E11.9 Type 2 diabetes mellitus without complications; Z79.84 Long term (current) use of oral hypoglycemic drugs
CPT/HCPCS: 36415; 74176; 80053; 81001; 81025; 85025; 87086; 99284

== ENCOUNTER 2022-10-13 09:00 | Emergency (ER) | payer OTHER, SELFPAY ==
[2022-10-13 09:07] VITALS: BP 140/88; PULSE 84; RESP 16; TEMP 36.5; O2SAT 99
--- NOTE | 2022-10-13 09:08 | ED.GENADULT ---
HPI - General Adult General Chief complaint: Upper Respiratory Infection Stated complaint: vomiting Time Seen by Provider: 10/13/22 09:08 Source: patient, RN notes reviewed and old records reviewed Mode of arrival: ambulatory Limitations: no limitations History of Present Illness HPI narrative: 26-year-old female presents to the [facility] with complaints of nausea, vomiting, suprapubic pressure. States has been going on for 3-4 days. Recently diagnosed with a UTI. Denies any fevers. Able to keep fluids down without issue Onset (ago): day(s) (3-4) Related Data Home Medications Medication Instructions Recorded Confirmed empagliflozin 25 mg tablet 25 mg PO DAILY 08/16/22 10/13/22 (Jardiance) metformin 500 mg tablet,extended 500 mg PO DIRECTED 08/16/22 10/13/22 release 24 hr nitrofurantoin 100 mg PO BID 10/13/22 10/13/22 monohydrate/macrocrystals 100 mg capsule Allergies Allergy/AdvReac Type Severity Reaction Status Date / Time No Known Allergies Allergy Verified 10/13/22 09:26 Review of Systems Review of Systems: All systems reviewed & are unremarkable except as noted in HPI and below Constitutional: Constitutional: Reports no additional constitutional complaints Eyes: Eyes: Reports no additional eye complaints ENT: Reports system reviewed and no additional complaints, except as documented Cardiovascular: Cardiovascular: Reports no additional cardiovascular complaints, Denies chest pain and Denies dyspnea Respiratory: Respiratory: Reports no additional respiratory complaints, Denies chest congestion, Denies cough and Denies dyspnea Gastrointestinal: Gastrointestinal: Reports as per HPI, Denies abdominal pain, Reports nausea and Reports vomiting Musculoskeletal: Musculoskeletal: Reports no additional musculoskeletal complaints Integumentary/Breasts: Skin/Breast: Reports system reviewed and no additional complaints, except as docu Neurologic: Reports system reviewed and no additional complaints, except as documented Psychiatric: Psychiatric: Reports no additional psychiatric complaints Allergic/Immunologic: Allergic/Immunologic: Reports no additional allergic/immunologic complaints PMFSH Past Medical History Medical History Diabetes Herpes Surgical History Surgical History No significant past surgical history Social History Social History Smoking status: Never smoker Living arrangements: with family Comments At the time of my signature, I reviewed and agree with the nursing past medical, surgical, social, and family history. There is no relevant family history pertinent to the patient complaint. Exam Const: General: cooperative, healthy appearing, comfortable, no acute distress, well developed, alert and well nourished Nutritional Appearance: well nourished Orientation/consciousness: patient oriented x3 Limitations: no limitations HENMT: Head: normal to inspection Ears: hearing grossly normal bilaterally and external ears normal Face/Nose/Sinus: Normal external nose present, Normal nares present, Normal nasal mucous membranes and turbinates present and normal facial exam Face and sinus: normal facial exam Mouth: Yes Normal oral and palatal mucosa present, Yes lip normal and Yes moist mucous membranes Throat: posterior oropharynx normal and uvula midline Eyes: General: appearance normal, both eyes and all related structures Alignment and Position: alignment normal Periorbital: periorbital findings normal Conjunctivae: conjunctivae normal Pupils: Equal, round and reactive pupils present EOM: EOMs intact bilaterally Neck: Neck: normal visual inspection, full ROM, no lymphadenopathy and no meningeal signs Chest: Chest palpation & inspection: normal inspection of the chest Resp: Effort & Inspection: normal
[2022-10-13 09:34] LABS: Glucose Point of Care 191 mg/dl (65-105)
== END 2022-10-13 09:38 | disposition home or self-care (01) ==
PROVIDERS: Emergency Provider Nurse Practitioner; PCP Internal Medicine Infectious Disease
DX: R11.2 Nausea with vomiting, unspecified (principal); E11.9 Type 2 diabetes mellitus without complications
CPT/HCPCS: 82948; 99213; G0463

== ENCOUNTER 2022-11-01 12:24 | Emergency (ER) | payer OTHER, SELFPAY ==
[2022-11-01 12:38] VITALS: BP 117/74; PULSE 91; RESP 14; TEMP 37.1; O2SAT 99
--- NOTE | 2022-11-01 12:39 | ED.BACK ---
HPI - Back Pain/Injury General Chief Complaint: Back Pain/Injury Stated Complaint: back pain/abd pain Time Seen by Provider: 11/01/22 12:44 Source: patient Mode of arrival: ambulatory Limitations: no limitations History of Present Illness HPI Narrative: 26-year-old female presented for complaint of lower back pain, onset this morning 0400. Pain only occurs when twisting or moving. She states she woke up to get out of bed and felt like she could barely move. She denies radiating pain to the legs, numbness, tingling, weakness of the lower extremities, saddle paresthesia, loss of control about bladder stone. She denies injury or overuse. She denies abdominal pain, nausea, vomiting, urinary complaints, fevers or chills. She has taken Tylenol without relief. Also reports elevated BS lately and contacted pcp, but has to try again tomorrow. Related Data Home Medications Medication Instructions Recorded Confirmed empagliflozin 25 mg tablet 25 mg PO DAILY 08/16/22 11/01/22 (Jardiance) metformin 500 mg tablet,extended 500 mg PO DIRECTED 08/16/22 11/01/22 release 24 hr alcohol swabs (Alcohol Prep Pads) 1 pad topical DIRECTED 11/01/22 11/01/22 blood sugar diagnostic (OneTouch 11/01/22 11/01/22 Verio test strips) blood-glucose meter (OneTouch 11/01/22 11/01/22 Verio Reflect Meter) lancets 30 gauge (OneTouch Delica 11/01/22 11/01/22 Plus Lancet) Allergies Allergy/AdvReac Type Severity Reaction Status Date / Time No Known Allergies Allergy Verified 11/01/22 12:29 Review of Systems Review of Systems: CONSTITUTIONAL: Denies body aches, fever, chills EYES: Denies visual changes CARDIOVASCULAR: Denies chest pain, palpitations, or edema. RESPIRATORY: Denies cough or dyspnea. GASTROINTESTINAL: Denies abdominal pain, nausea, vomiting, or diarrhea. SKIN: Denies rash, itching, or wounds. MUSCULOSKELETAL: reports back pain NEUROLOGIC: Denies headache, numbness, tingling, or weakness. All systems reviewed & are unremarkable except as noted in HPI and below PMFSH Past Medical History Medical History Diabetes Herpes Surgical History Surgical History No significant past surgical history Social History Social History Smoking status: Never smoker Living arrangements: with family Comments At time of signature, I have reviewed and agree with nursing past medical, surgical, social and family history unless otherwise noted. Please see nursing chart for further information. There is no relevant family history pertinent to the presenting complaint Exam Narrative: GENERAL: Well-appearing, well-nourished, and in no acute distress. HEAD: Normocephalic, atraumatic. EYES: conjunctivae clear NECK: Supple. full ROM CHEST: Speaks in full sentences. No respiratory distress. HEART: Regular rate and rhythm. Normal and equal peripheral pulses. ABD: Abdomen soft, flat, nontender MUSC: No Vertebral point tenderness. No tenderness with palpation over lower back/hips. No CVA tenderness. BLEs with normal strength and sensation, normal range of motion. No wounds or ecchymosis; pulse palpable and equal bilaterally, skin warm, dry, pink. Capillary refill less than 3 seconds. Gait steady. SKIN: Warm, dry, no rash. NEURO: Alert and oriented x3. Course Course Emergency Course: Patient is aware of diagnosis, understands and agrees to treatment plan. Anticipatory guidance given. Patient agrees to follow-up as directed and is aware of reasons to seek care at the emergency department. Portions of this record may have been created with voice recognition software Level of Care: Express Care Visit Vital Signs Vital signs: Reviewed MDM - Back Pain/Injury MDM Narrative Medical decision making narrative: Discussed urine results with pt, she would like
== END 2022-11-01 13:01 | disposition home or self-care (01) ==
PROVIDERS: Emergency Provider Nurse Practitioner Family; PCP Internal Medicine Infectious Disease
DX: M54.50 Low back pain, unspecified (principal); E11.9 Type 2 diabetes mellitus without complications; Z79.84 Long term (current) use of oral hypoglycemic drugs
CPT/HCPCS: 81003; 81025; 87086; 99213; G0463

== ENCOUNTER 2023-01-05 11:15 | Emergency (ER) | payer OTHER, SELFPAY ==
--- NOTE | 2023-01-05 11:21 | ED.NAVMDI ---
HPI - Nausea/Vomiting/Diarrhea General Chief complaint: Nausea/Vomiting/Diarrhea Stated complaint: Nausea/Acid Reflux Time Seen by Provider: 01/05/23 11:21 Source: patient Mode of arrival: ambulatory Limitations: no limitations History of Present Illness HPI Narrative: Patient is a 27-year-old female who presents with 2 days of increased burping, acid reflux, abdominal pain, diarrhea. Patient states she took Imodium yesterday and that has helped her diarrhea. States she does eat spicy food frequently. Denies any blood in stool. Has only vomited once patient denies any blood in vomit. Denies any burning with urination low back pain, fever, chills. Related Data Home Medications Medication Instructions Recorded Confirmed empagliflozin 25 mg tablet 25 mg PO DAILY 08/16/22 11/01/22 (Jardiance) metformin 500 mg tablet,extended 500 mg PO DIRECTED 08/16/22 11/01/22 release 24 hr blood sugar diagnostic (OneTouch 11/01/22 11/01/22 Verio test strips) blood-glucose meter (OneTouch 11/01/22 11/01/22 Verio Reflect Meter) lancets 30 gauge (OneTouch Delica 11/01/22 11/01/22 Plus Lancet) etonogestrel 68 mg subdermal 1 implant subdermal ONCE 01/05/23 01/05/23 implant (Nexplanon) sitagliptin phosphate 100 mg mg 01/05/23 01/05/23 tablet (Januvia) Allergies Allergy/AdvReac Type Severity Reaction Status Date / Time No Known Allergies Allergy Verified 01/05/23 11:24 Review of Systems Review of Systems: All systems reviewed & are unremarkable except as noted in HPI and below Constitutional: Constitutional: Denies body ache(s), Denies chills, Denies fatigue, Denies fever(s), Denies headache(s), Denies malaise and Denies weakness Eyes: Eyes: Denies blurry vision, Denies irritation and Denies loss of vision ENT: Denies otalgia, Denies headache(s), Denies nasal discharge, Denies sinus pain and Denies sore throat Cardiovascular: Cardiovascular: Denies chest pain, Denies irregular heart rhythm and Denies dyspnea Respiratory: Respiratory: Denies dyspnea Gastrointestinal: Gastrointestinal: Reports abdominal pain, Reports belching, Denies melena, Reports bloating, Denies hematochezia, Reports heartburn, Reports diarrhea, Denies nausea and Denies vomiting Musculoskeletal: Musculoskeletal: Denies back pain, Denies myalgias and Denies arthralgias Integumentary/Breasts: Skin/Breast: Denies pruritus and Denies rash Neurologic: Denies headache(s), Denies loss of vision and Denies weakness Psychiatric: Psychiatric: Reports no additional psychiatric complaints Endocrine: Endocrine: Denies fatigue PMFSH Past Medical History Medical History Diabetes Herpes Surgical History Surgical History No significant past surgical history Social History Social History Smoking status: Never smoker Living arrangements: with family Comments At time of signature, agree with nursing past medical, surgical, social and family history. There is no relevant family history pertinent to the presenting complaint. Exam Const: General: cooperative, healthy appearing, comfortable, no acute distress and well nourished Nutritional Appearance: well nourished Orientation/consciousness: patient oriented x3 Limitations: no limitations HENMT: Head: normal to inspection, normocephalic and atraumatic Ears: hearing grossly normal bilaterally and external ears normal Face/Nose/Sinus: Normal external nose present, normal facial exam and face symmetric Face and sinus: normal facial exam and face symmetric Mouth: Yes lip normal Eyes: General: appearance normal, both eyes and all related structures Alignment and Position: alignment normal and position normal Periorbital: periorbital findings normal Eyelids: eyelids normal Pupils: Equal, round and reactive pupils present
[2023-01-05 11:23] VITALS: BP 146/85; PULSE 82; RESP 16; TEMP 36.4; O2SAT 98
[2023-01-05 11:25] VITALS: BP 146/85; PULSE 82; RESP 16; TEMP 36.4; O2SAT 98
== END 2023-01-05 11:45 | disposition home or self-care (01) ==
PROVIDERS: Emergency Provider Nurse Practitioner Family; PCP Internal Medicine Infectious Disease
DX: K21.9 Gastro-esophageal reflux disease without esophagitis (principal); E11.9 Type 2 diabetes mellitus without complications
CPT/HCPCS: 99213; G0463

== ENCOUNTER 2023-01-09 09:14 | Emergency (ER) | payer OTHER, SELFPAY ==
[2023-01-09 09:21] VITALS: BP 122/80; PULSE 93; RESP 16; TEMP 36.6; O2SAT 99
--- NOTE | 2023-01-09 10:04 | ED.URI ---
HPI - URI/Sore Throat General Chief Complaint: Upper Respiratory Infection Stated Complaint: Cough/Sinus Time Seen by Provider: 01/09/23 10:04 Source: patient, RN notes reviewed and old records reviewed Mode of arrival: ambulatory Limitations: no limitations History of Present Illness HPI Narrative: 27 year old female who presents to express care with complaints of sore throat since yesterday with painful swallowing and feeling like she has a ball in her throat for 2 days duration. Patient reports that she has some sinus congestion with drainage that is clear to light greenish tinged in color, cough also noted at times is productive. Patient states some right upper chest discomfort with cough, has not had any known fevers chills or sweats. Patient verbalized that she did throw up this morning denies any present nausea MD elicited complaint: cough and sore throat Onset (ago): day(s) (day 2 of symptoms) Pain scale (0-10): 3 Able to tolerate fluids by mouth: Yes Exacerbating factors: swallowing Treatments prior to arrival: other (cough drops) Related Data Home Medications Medication Instructions Recorded Confirmed empagliflozin 25 mg tablet 25 mg PO DAILY 08/16/22 11/01/22 (Jardiance) metformin 500 mg tablet,extended 500 mg PO DIRECTED 08/16/22 11/01/22 release 24 hr [facility]/01/22 11/01/22 Verio test strips) blood-glucose meter ([facility] 11/01/22 Verio Reflect Meter) lancets 30 gauge (OneTouch Delica 11/01/22 11/01/22 Plus Lancet) etonogestrel 68 mg subdermal 1 implant subdermal ONCE 01/05/23 01/05/23 implant (Nexplanon) sitagliptin phosphate 100 mg mg 01/05/23 01/05/23 tablet (Januvia) Allergies Allergy/AdvReac Type Severity Reaction Status Date / Time No Known Allergies Allergy Verified 01/09/23 09:33 Review of Systems Review of Systems: CONSTITUTIONAL: Denies malaise, chills, sweats, or fever. EYES: Denies visual changes, redness, or discharge. ENT: Reports rhinorrhea, congestion, sinus pain,no otalgia positive for sore throat. CARDIOVASCULAR: Denies chest pain, palpitations, or edema. RESPIRATORY: Reports cough.? Denies dyspnea. GASTROINTESTINAL: Denies abdominal pain, nausea,one episode of vomiting,no diarrhea SKIN: Denies rash or itching. MUSCULOSKELETAL: Denies myalgia. NEUROLOGIC: Denies headache. All systems reviewed & are unremarkable except as noted in HPI and below PMFSH Past Medical History Medical History (Updated 01/10/23 @ 09:17 by Oralia Mary NP) Diabetes Fatty liver Herpes Surgical History Surgical History No significant past surgical history Social History Social History Smoking status: Never smoker Living arrangements: with family Comments At time of signature, agree with nursing past medical, surgical, social and family history. There is no relevant family history pertinent to the presenting complaint Exam Narrative: GENERAL: Well-appearing, well-nourished, and in no acute distress. HEAD: Normocephalic EYES: PERRLA, conjunctivae clear ENT: Nares clear, turbinates edematous and erythematous, clear to greenish discharge. Mucous membranes moist. TM pearly doyle with dull light reflex bilaterally; no tragal tenderness. Oropharynx erythematous without lesions. Tonsils red and enlarged and without exudate, no drooling, no hoarseness, no trismus, uvula midline.post nasal drainage. NECK: Supple. lymphadenopathy CHEST: Clear to auscultation, breath sounds equal. No wheezing, rhonchi, rales, or stridor. No respiratory distress, speaks in full sentences.cough noted SAO2 99% on room air HEART: Regular rate and rhythm. No murmur heard. SKIN: Warm, dry, no rash. NEURO: Alert and oriented x3. PSYCH: Normal mood and affect Course Course Emergency Course: Patient i
== END 2023-01-09 10:23 | disposition home or self-care (01) ==
PROVIDERS: Emergency Provider Registered Nurse; PCP Internal Medicine Infectious Disease
DX: J03.90 Acute tonsillitis, unspecified (principal); E11.9 Type 2 diabetes mellitus without complications; K76.0 Fatty (change of) liver, not elsewhere classified
CPT/HCPCS: 87081; 87880; 99213; G0463

== ENCOUNTER 2023-01-12 04:29 | Emergency (ER) | payer OTHER, SELFPAY ==
[2023-01-12 04:40] VITALS: BP 150/102; PULSE 102; RESP 14; TEMP 36.7; O2SAT 98
[2023-01-12 05:12] LABS: Appearance Urine Cloudy (Clear); Bacteria Urine 1+ /hpf; Bilirubin Urine Negative (Negative); Blood Urine 3+ (Negative); Color Urine Yellow (Yellow); Glucose Urine UA 3+ mg/dL (Negative); Ketones Urine 1+ mg/dL (Negative); Leukocyte Esterase Ur 1+ LEU/UL (Negative); Nitrate Urine Negative (Negative); Non Pathogenic Casts 0-2; Protein Urine 2+ mg/dL (Negative); RBC Urine >100 /hpf (0-2); Squamous Epithelial Cell Urine Moderate /hpf (Few); Urobilinogen Urine 0.2 mg/dL (<2.0); WBC Urine >100 /hpf
[2023-01-12 05:17] LABS: Specific Grav Ur 1.039 (1.001-1.035)
[2023-01-12 05:18] LABS: Add Urine Microscopic? YES
--- NOTE | 2023-01-12 05:56 | ED.FEMALEGU ---
HPI - Female Genitourinary General Chief complaint: Urogenital-Female Stated complaint: UTI Time Seen by Provider: 01/12/23 04:38 History of Present Illness HPI Narrative: 27-year-old female history of diabetes that she reports is poorly controlled presented the emergency department for evaluation of urinary symptoms. Patient states over the course of the week she has had some abdominal pain and feelings of generalized illness but it was this evening that she began having increased urinary symptoms. Related Data Home Medications Medication Instructions Recorded Confirmed empagliflozin 25 mg tablet 25 mg PO DAILY 08/16/22 11/01/22 (Jardiance) metformin 500 mg tablet,extended 500 mg PO DIRECTED 08/16/22 11/01/22 release 24 hr blood sugar diagnostic (OneTouch 11/01/22 11/01/22 Verio test strips) blood-glucose meter (OneTouch 11/01/22 11/01/22 Verio Reflect Meter) lancets 30 gauge (OneTouch Delica 11/01/22 11/01/22 Plus Lancet) etonogestrel 68 mg subdermal 1 implant subdermal ONCE 01/05/23 01/05/23 implant (Nexplanon) sitagliptin phosphate 100 mg mg 01/05/23 01/05/23 tablet (Januvia) Allergies Allergy/AdvReac Type Severity Reaction Status Date / Time No Known Allergies Allergy Verified 01/12/23 04:51 Review of Systems Review of Systems: All systems reviewed & are unremarkable except as noted in HPI and below PMFSH Past Medical History Medical History (Updated 01/12/23 @ 06:00 by Malik Wang MD) Diabetes Fatty liver Herpes Surgical History Surgical History No significant past surgical history Social History Social History Smoking status: Never smoker Living arrangements: with family Exam Narrative: APPEARANCE: Well appearing, no pain, no distress, well-nourished. HEAD: normocephalic, atraumatic. EYES: PERRLA/EOMI, conjunctivae clear. NOSE: Normal no drainage RESPIRATORY: Airway patent, respirations nonlabored. Clear to auscultation bilaterally, no rales, rhonchi, wheezing. CARDIOVASCULAR: Regular rate and rhythm without murmurs rubs or gallops. ABDOMINAL: Soft, no CVA tenderness to palpation, patient does have suprapubic tenderness to palpation MUSCULOSKELETAL: Moves all extremities. Strength/ROM intact, No edema, No calf tenderness. NEURO: Alert. Cranial nerves II through XII intact. Grossly intact SKIN: Warm, dry. Normal Color Course Course Emergency Course: 27-year-old female with history of diabetes presented to the emergency department for evaluation of urinary symptoms. Patient does have a significant urinary tract infection and was treated with IV Rocephin. Patient reports he does have previous hematuria and does have follow-up scheduled with urology. Patient was updated the results of her work-up and on reasons to return to the emergency department. All questions concerns were addressed. Vital Signs Vital signs: Vital Signs Temperature 98.0 F 01/12/23 04:40 Pulse Rate 102 H 01/12/23 04:40 Respiratory Rate 14 01/12/23 04:40 Blood Pressure 150/102 H 01/12/23 04:40 Pulse Oximetry 98 01/12/23 04:40 Oxygen Delivery Room Air 01/12/23 04:40 Temperature 98.0 F 01/12/23 04:40 Pulse Rate 102 H 01/12/23 04:40 Respiratory Rate 14 01/12/23 04:40 Blood Pressure 150/102 H 01/12/23 04:40 Pulse Oximetry 98 01/12/23 04:40 Oxygen Delivery Room Air 01/12/23 04:40 MDM - Female Genitourinary Differential Diagnosis Differential diagnosis: Likely urinary tract infection Lab Data Attestation: I reviewed the patient's lab results. Labs: Lab Results 01/12/23 Range/Units 04:56 Urine Color Yellow (Yellow) Urine Appearance Cloudy H (Clear) Urine pH 6.0 (5.0-9.0) Ur Specific Nada 1.039 H (1.001-1.035) Urine Protein 2+ H (Negative) mg/dL Urine Glucose (UA) 3+ H (Negative) mg/dL
== END 2023-01-12 06:20 | disposition home or self-care (01) ==
PROVIDERS: Emergency Provider Emergency Medicine; PCP Internal Medicine Infectious Disease
DX: N39.0 Urinary tract infection, site not specified (principal); E11.9 Type 2 diabetes mellitus without complications
CPT/HCPCS: 81001; 81025; 87077; 87086; 87186; 96365; 99284; J0696

== ENCOUNTER 2023-02-14 11:53 | Emergency (ER) | payer OTHER, SELFPAY ==
--- NOTE | ~2023-02-14 | XR_ITS ---
EXAMINATION: XR chest 2V DATE: 02/14/2023 13:12 INDICATION: Midline chest pain. Uncontrolled diabetes TECHNIQUE: PA and lateral views of the chest were obtained. COMPARISON: None FINDINGS: The lungs are clear with no focal airspace opacities, pulmonary edema, pleural effusion or pneumothor ax. The cardiomediastinal silhouette is normal. 20 degree thoracic dextroscoliosis. IMPRESSION: 1. No acute cardiopulmonary disease. Reviewed, dictated and finalized at location A.
[2023-02-14 11:57] VITALS: BP 149/109; PULSE 95; RESP 18; TEMP 37.2; O2SAT 100
--- NOTE | 2023-02-14 12:34 | ECG_ITS ---
Measurements Intervals [place] Rate: 98 P: 57 MA: 137 QRS: 34 QRSD: 93 T: 11 QT: 347 QTc: 444 Interpretive Statements SINUS RHYTHM POSSIBLE LEFT ATRIAL ENLARGEMENT [-0.1mV P WAVE IN V1/V2] INCOMPLETE RIGHT BUNDLE BRANCH BLOCK NONSPECIFIC ST CHANGES INFERIORLY. NO PREVIOUS ECG AVAILABLE FOR COMPARISON Electronically Signed On 02-14-2023 19:37:27 CDT by Elise Marroquin M.D.
[2023-02-14] MEDS: KETOROLAC 30 MG/ML VIAL (*BKC) IV PUSH (12:42)
[2023-02-14] MEDS: methylPREDNISolone SOD SUCC 125 MG VIAL IV PUSH (12:42)
[2023-02-14] MEDS: SODIUM CHLORIDE 0.9% IV 1,000 ML 999 ML IV CONT (12:42)
[2023-02-14] MEDS: METOCLOPRAMIDE HCL INJ 10 MG/2 ML VIAL IV PUSH (12:43)
[2023-02-14] MEDS: diphenhydrAMINE HCl INJ 50 MG/ML VIAL 25 MG IV PUSH (12:43)
[2023-02-14 12:59] LABS: Basophils Percent Auto 0.3 % (0.2-1.2); Eosinophils Absolute Auto 0.1 K/mm3 (0-0.3); Eosinophils Percent Auto 0.8 % (0-4.4); Hemoglobin 16.5 g/dL (12.0-15.0); Immature Granulocyte Absolute 0.03 K/mm3 (0.00-0.031); Immature Granulocyte Percent A 0.3 % (0-0.5); Lymphocytes Absolute Auto 2.44 K/mm3 (0.9-3.2); Lymphocytes Percent Auto 27.5 % (18.3-44.2); Mean Corpuscular Hemoglobin 29.6 pg (26-34); Mean Corpuscular Volume 89.8 fl (80-100); Monocytes Absolute Auto 0.4 K/mm3 (0.1-0.6); Monocytes Percent Auto 4.8 % (2.6-8.5); Neutrophils Absolute Auto 5.9 K/mm3 (1.3-6.7); Neutrophils Percent Auto 66.3 % (45.5-73.1); Platelet Count Result 153 k/mm3 (150-375); Red Blood Count 5.57 M/mm3 (4.2-5.4); White Blood Count 8.9 K/mm3 (4.5-10.0)
--- NOTE | 2023-02-14 12:59 | ED.GENADULT ---
HPI - General Adult General Chief complaint: Headache Stated complaint: PALMER x 3days, foot pain [id number] Time Seen by Provider: 02/14/23 11:59 History of Present Illness HPI narrative: 27-year-old history of diabetes presents to the emergency room with multiple medical complaints. Patient states that she has been experiencing stabbing kidney pain for 2 weeks, tremors, headache for 4 days, and chest discomfort . Patient states that she is attempted to follow-up with her PCP, and he instructed her to wait until her appointment in 3 weeks. Patient states her blood sugars have ranged from 1 50-2 50, never dipping below 70. Patient states that she has recently stopped taking her metformin, and her blood sugars are managed with Januvia and Jardiance. Related Data Home Medications Medication Instructions Recorded Confirmed empagliflozin 25 mg tablet 25 mg PO DAILY 08/16/22 11/01/22 (Jardiance) metformin 500 mg tablet,extended 500 mg PO DIRECTED 08/16/22 11/01/22 release 24 hr blood sugar diagnostic (OneTouch 11/01/22 11/01/22 Verio test strips) blood-glucose meter (OneTouch 11/01/22 11/01/22 Verio Reflect Meter) lancets 30 gauge (OneTouch Delica 11/01/22 11/01/22 Plus Lancet) etonogestrel 68 mg subdermal 1 implant subdermal ONCE 01/05/23 01/05/23 implant (Nexplanon) sitagliptin phosphate 100 mg mg 01/05/23 01/05/23 tablet (Januvia) Allergies Allergy/AdvReac Type Severity Reaction Status Date / Time No Known Allergies Allergy Verified 02/14/23 12:11 Review of Systems Review of Systems: CONSTITUTIONAL: Denies fever, chills, or sweats. EYES: Denies visual changes, redness, or discharge. ENT: Denies rhinorrhea, congestion, sore throat, or otalgia. CARDIOVASCULAR: Reports chest pain RESPIRATORY: Denies cough or dyspnea. GASTROINTESTINAL: Denies abdominal pain, nausea, vomiting, or diarrhea. GENITOURINARY: Reports bilateral flank pain SKIN: Denies rash or itching. MUSCULOSKELETAL: Denies back pain, joint pain, or myalgia. NEUROLOGIC: Reports headache, tremors PSYCHIATRIC: Reports anxiety PMFSH Past Medical History Medical History Diabetes Fatty liver Herpes Surgical History Surgical History No significant past surgical history Social History Social History Smoking status: Never smoker Living arrangements: with family Exam Narrative: GENERAL: Well-appearing, well-nourished, no physical limitations, and in no acute distress. HEAD: Normocephalic, atraumatic. EYES: Conjunctivae normal, PERRLA and EOMI. CHEST: Clear to auscultation. No respiratory distress. No wheezes rales or rhonchi. HEART: Regular rate and rhythm. No murmur heard. Normal peripheral pulses. ABDOMEN: Soft, nontender, nondistended, normal active bowel sounds. BACK: Bilateral CVA tenderness EXTREMITIES: Normal range of motion. No edema. No clubbing or cyanosis SKIN: Warm, dry, no rash. No noted wounds NEURO: No focal deficits. Alert and oriented x3. MAEW. CN's II-XI intact bilaterally, normal gait PSYCH: Cooperative. Normal mood and affect. Course Vital Signs Vital signs: Vital Signs Temperature 37.2 C 02/14/23 11:57 Pulse Rate 95 02/14/23 11:57 Respiratory Rate 18 02/14/23 11:57 Blood Pressure 149/109 H 02/14/23 11:57 Pulse Oximetry 100 02/14/23 11:57 Temperature 37.2 C 02/14/23 11:57 Pulse Rate 95 02/14/23 11:57 Respiratory Rate 18 02/14/23 11:57 Blood Pressure 149/109 H 02/14/23 11:57 Pulse Oximetry 100 02/14/23 11:57 Medical Decision Making MDM Narrative Medical decision making narrative: 27-year-old female history of diabetes presented to the emergency room with multiple complaints. Patient states that she been experiencing a headache for several days, lower back pain, abdominal discomfort
[2023-02-14 13:05] LABS: Appearance Urine Clear (Clear); Bacteria Urine 1+ /hpf; Bilirubin Urine Negative (Negative); Blood Urine 2+ (Negative); Color Urine Yellow (Yellow); Glucose Urine UA 3+ mg/dL (Negative); Ketones Urine 4+ mg/dL (Negative); Leukocyte Esterase Ur Negative LEU/UL (Negative); Nitrate Urine Negative (Negative); Non Pathogenic Casts 0-2; Protein Urine 3+ mg/dL (Negative); RBC Urine 51-100 /hpf (0-2); Squamous Epithelial Cell Urine Few /hpf (Few); Urobilinogen Urine 0.2 mg/dL (<2.0); WBC Urine 0-5 /hpf; pH Urine 6.5 (5.0-9.0)
[2023-02-14 13:09] LABS: Alanine Aminotransferase 50 U/L (6-35); Albumin Level 4.9 g/dL (3.5-5.1); Alkaline Phosphatase 69 U/L (38-126); Anion Gap 13 mmol/L (8-16); Aspartate Amino Transferase 43 U/L (14-36); Blood Urea Nitrogen 12 mg/dL (7-17); Calcium 9.3 mg/dL (8.4-10.2); Carbon Dioxide 23 mmol/L (22-30); Chloride 101 mmol/L (98-107); Estimated CRCL calculation 129 ml/min; Estimated Glomerular Filt Rate > 60; Glucose 131 mg/dL (65-110); Sodium 137 mmol/L (137-145)
[2023-02-14 13:12] LABS: Add Urine Microscopic? YES; Specific Grav Ur 1.042 (1.001-1.035)
[2023-02-14 14:10] LABS: Troponin I < 0.012 ng/mL (0.000-0.034)
[2023-02-14 14:54] VITALS: BP 123/65; PULSE 76; RESP 18; O2SAT 100
[2023-02-14 15:37] LABS: Lipase 55 U/L (23-300)
== END 2023-02-14 14:55 | disposition home or self-care (01) ==
PROVIDERS: Emergency Provider Nurse Practitioner Family; PCP Internal Medicine Infectious Disease
DX: R51.9 Headache, unspecified (principal); M54.50 Low back pain, unspecified; R94.5 Abnormal results of liver function studies; E11.9 Type 2 diabetes mellitus without complications; Z79.84 Long term (current) use of oral hypoglycemic drugs
CPT/HCPCS: 36415; 71046; 80053; 81001; 81025; 83690; 84484; 85025; 93005; 96361; 96374; 96375; 99284; J1200; J1885; J2765; J2930; J7030

== ENCOUNTER 2023-02-28 10:21 | Emergency (ER) | payer OTHER, SELFPAY ==
[2023-02-28 10:31] VITALS: BP 112/74; PULSE 94; RESP 16; TEMP 36.2; O2SAT 100
--- NOTE | 2023-02-28 11:14 | ED.EAR ---
HPI - Ear Problem General Chief complaint: Ear Stated complaint: Right Ear Irritation Source: patient Mode of arrival: ambulatory Limitations: no limitations History of Present Illness HPI Narrative: 27 y/o female presented for c/o right ear pressure, and feeling 'wetness in the ear' for about one week. States the ear is not actually draining. Endorses decreased hearing, ringing and occasional off balance sensation. Feels popping in ear when swallowing. Not taking anything for symptoms. Denies sinus congestion or nasal drainage, sore throat, cough, n/v/d/f/c. Denies hx ear infections. MD Complaint: ear pain Related Data Home Medications Medication Instructions Recorded Confirmed empagliflozin 25 mg tablet 25 mg PO DAILY 08/16/22 02/28/23 (Jardiance) blood sugar diagnostic ([employer] 11/01/22 11/01/22 Verio test strips) blood-glucose meter ([employer] 11/01/22 11/01/22 Verio Reflect Meter) lancets 30 gauge ([employer] Delica 11/01/22 11/01/22 Plus Lancet) etonogestrel 68 mg subdermal 1 implant subdermal ONCE 01/05/23 02/28/23 implant (Nexplanon) sitagliptin phosphate 100 mg 100 mg PO DAILY 01/05/23 02/28/23 tablet (Januvia) dulaglutide 0.75 mg/0.5 mL 0.75 mg subcut WEEKLY 02/28/23 02/28/23 subcutaneous pen injector (Trulicity) Allergies Allergy/AdvReac Type Severity Reaction Status Date / Time No Known Allergies Allergy Verified 02/28/23 10:42 Review of Systems Review of Systems: CONSTITUTIONAL: Denies malaise, chills, or fever. EYES: Denies visual changes, redness, or discharge. ENT: Denies rhinorrhea, congestion, sinus pain, and sore throat. Reports ear pain CARDIOVASCULAR: Denies chest pain, palpitations, or edema. RESPIRATORY: Denies cough or dyspnea. GASTROINTESTINAL: Denies abdominal pain, nausea, vomiting, diarrhea SKIN: Denies rash or itching. MUSCULOSKELETAL: Denies myalgia. NEUROLOGIC: Denies headache. All systems reviewed & are unremarkable except as noted in HPI and below PMFSH Past Medical History Medical History Diabetes Fatty liver Herpes Surgical History Surgical History No significant past surgical history Social History Social History Smoking status: Never smoker Living arrangements: with family Comments At time of signature, agree with nursing past medical, surgical, social and family history. There is no relevant family history pertinent to the presenting complaint Exam Narrative: GENERAL: Well-appearing HEAD: Normocephalic EYES: PERRLA, conjunctivae clear ENT: Nares clear. Mucous membranes moist. TMs pearly doyle with normal light reflex and normal canals bilaterally; no tragal tenderness. Oropharynx not erythematous without lesions. Tonsils not enlarged and without exudate, no drooling, no hoarseness, no trismus, uvula midline. NECK: Supple. No lymphadenopathy CHEST: Clear to auscultation, breath sounds equal. HEART: Regular rate and rhythm. No murmur heard. SKIN: Warm, dry, no rash. NEURO: Alert and oriented x3. PSYCH: Normal mood and affect Course Course Emergency Course: Patient is aware of diagnosis, understands and agrees to treatment plan. Anticipatory guidance given. Patient agrees to follow-up as directed and is aware of reasons to seek care at the emergency department. Portions of this record may have been created with voice recognition software Level of Care: Express Care Visit Vital Signs Vital signs: Vital Signs Temperature 97.2 F L 02/28/23 10:31 Pulse Rate 94 02/28/23 10:31 Respiratory Rate 16 02/28/23 10:31 Blood Pressure 112/74 02/28/23 10:31 Pulse Oximetry 100 02/28/23 10:31 Oxygen Delivery Room Air 02/28/23 10:31 Temperature 97.2 F L 02/28/23 10:31 Pulse Rate 94 02/28/23 10:31 Respiratory Rate 16 02/28/23 10:3
== END 2023-02-28 11:31 | disposition home or self-care (01) ==
PROVIDERS: Emergency Provider Nurse Practitioner Family; PCP Internal Medicine Infectious Disease
DX: H65.01 Acute serous otitis media, right ear (principal); E11.9 Type 2 diabetes mellitus without complications; K76.0 Fatty (change of) liver, not elsewhere classified
CPT/HCPCS: 99211; G0463

== ENCOUNTER 2023-03-05 15:15 | Emergency (ER) | payer OTHER, SELFPAY ==
--- NOTE | ~2023-03-05 | XR_ITS ---
EXAMINATION: XR hand RT min 3V INDICATION: Right hand pain TECHNIQUE: Three views of the right hand are obtained. COMPARISON: None available FINDINGS: No fracture, dislocation, or subluxation. The bones, soft tissues, and joint spaces are nor mal. IMPRESSION: 1. No acute osseous abnormality. Reviewed, dictated and finalized at location A.
[2023-03-05 15:40] VITALS: BP 124/70; PULSE 85; RESP 16; TEMP 36.8; O2SAT 100
--- NOTE | 2023-03-05 16:29 | ED.UPPEXIN ---
HPI - Extremity Injury (Upper) General Chief Complaint: Extremity Injury, Upper Stated Complaint: right hand pain Time Seen by Provider: 03/05/23 16:26 Source: patient and RN notes reviewed Mode of arrival: ambulatory Limitations: no limitations History of Present Illness HPI narrative: Patient presents today complaining of right hand pain after she struck it on a wall yesterday. She reports some tingling to her 4th finger intermittently but denies numbness. Currently rates her pain 2/10, which increases with movement. She has tried no treatment prior to arrival. Related Data Home Medications Medication Instructions Recorded Confirmed empagliflozin 25 mg tablet 25 mg PO DAILY 08/16/22 03/05/23 (Jardiance) blood sugar diagnostic (OneTouch 11/01/22 03/05/23 Verio test strips) blood-glucose meter (OneTouch 11/01/22 03/05/23 Verio Reflect Meter) lancets 30 gauge (OneTouch Delica 11/01/22 03/05/23 Plus Lancet) etonogestrel 68 mg subdermal 1 implant subdermal ONCE 01/05/23 03/05/23 implant (Nexplanon) sitagliptin phosphate 100 mg 100 mg PO DAILY 01/05/23 03/05/23 tablet (Januvia) dulaglutide 0.75 mg/0.5 mL 0.75 mg subcut WEEKLY 02/28/23 03/05/23 subcutaneous pen injector (Trulicity) cetirizine 10 mg tablet (Zyrtec) 10 mg PO DAILY 03/05/23 03/05/23 Allergies Allergy/AdvReac Type Severity Reaction Status Date / Time No Known Allergies Allergy Verified 03/05/23 15:49 Review of Systems Review of Systems: CONSTITUTIONAL: Denies body aches, fever, chills, or sweats. EYES: Denies visual changes, redness, or discharge. ENT: Denies rhinorrhea, congestion, sore throat, or otalgia. CARDIOVASCULAR: Denies chest pain, palpitations, or edema. RESPIRATORY: Denies cough or dyspnea. GASTROINTESTINAL: Denies abdominal pain, nausea, vomiting, or diarrhea. GENITOURINARY: Denies dysuria or hematuria. SKIN: Denies rash, itching, or wounds. MUSCULOSKELETAL: Denies back pain, or myalgia.+ right hand injury NEUROLOGIC: Denies headache, numbness, or weakness. PSYCH: Denies depression or anxiety. PMFSH Past Medical History Medical History Diabetes Fatty liver Herpes Surgical History Surgical History No significant past surgical history Social History Social History Smoking status: Never smoker Living arrangements: with family Comments At time of signature, I have reviewed and agree with nursing past medical, surgical, social and family history unless otherwise noted. Please see nursing chart for further information. There is no relevant family history pertinent to the presenting complaint Exam Narrative: GENERAL: Well-appearing, well-nourished, and in no acute distress. HEAD: Normocephalic, atraumatic. EYES: EOMI. No redness or drainage. Conjunctivae normal. ENT: Mucous membranes pink and moist. NECK: Normal AROM. CHEST: No respiratory distress. EXTREMITIES: Right hand: Faint ecchymosis to the dorsum of the 4th and 5th metacarpals. Tenderness to the same area as well as the 4th and 5th fingers. Distal sensation intact in all 5 fingers. Capillary refill normal. Radial pulse normal. Full range of motion of all fingers. SKIN: Warm, dry, no rash. Capillary refill normal. Normal skin turgor. NEURO: No focal deficits. Alert and oriented x3. Gait steady. PSYCH: Normal affect. No signs of depression or anxiety. Course Course Level of Care: Express Care Visit Vital Signs Vital signs: Vital Signs Temperature 98.3 F 03/05/23 15:40 Pulse Rate 85 03/05/23 15:40 Respiratory Rate 16 03/05/23 15:40 Blood Pressure 124/70 03/05/23 15:40 Pulse Oximetry 100 03/05/23 15:40 Oxygen Delivery Room Air 03/05/23 15:40 Temperature 98.3 F 03/05/23 15:40 Pulse Rate 85 03/05/23 15:4
== END 2023-03-05 16:43 | disposition home or self-care (01) ==
PROVIDERS: Emergency Provider Nurse Practitioner; PCP Internal Medicine Infectious Disease
DX: S60.221A Contusion of right hand, initial encounter (principal); W22.09XA Striking against other stationary object, initial encounter; E11.9 Type 2 diabetes mellitus without complications; K76.0 Fatty (change of) liver, not elsewhere classified
CPT/HCPCS: 73130; 99213; G0463

== ENCOUNTER 2023-03-26 13:44 | Emergency (ER) | payer OTHER, SELFPAY ==
[2023-03-26 13:58] VITALS: BP 141/89; PULSE 83; RESP 16; TEMP 36.3; O2SAT 100
--- NOTE | 2023-03-26 14:43 | ED.ABDPAIN ---
HPI - Abdominal Pain General Chief Complaint: Abdominal Pain Stated Complaint: Abdominal Pain/Nausea Time Seen by Provider: 03/26/23 14:43 Source: patient and RN notes reviewed Mode of arrival: ambulatory Limitations: no limitations History of Present Illness HPI narrative: 27-year-old female with history of diabetes treated and of abdominal cramping and excessive gas over the past 3 days. Endorses frequent belching and reflux, and started with nausea and vomiting yesterday. No further vomiting since this morning but continues to have bad taste in mouth, and reports waking with distended abdomen. Endorses history of IBS with similar symptoms, and has been taking TUMS and dicyclomine from GI specialist. States DM is fairly controlled, increased doses of medications last week. Related Data Home Medications Medication Instructions Recorded Confirmed blood sugar diagnostic (OneTouch 11/01/22 03/26/23 Verio test strips) blood-glucose meter ([employer] 11/01/22 03/26/23 Verio Reflect Meter) lancets 30 gauge (OneTouch Delica 11/01/22 03/26/23 Plus Lancet) etonogestrel 68 mg subdermal 1 implant subdermal ONCE 01/05/23 03/26/23 implant (Nexplanon) cetirizine 10 mg tablet (Zyrtec) 10 mg PO DAILY 03/05/23 03/26/23 dicyclomine 10 mg capsule 10 mg PO TID 03/26/23 03/26/23 Allergies Allergy/AdvReac Type Severity Reaction Status Date / Time No Known Allergies Allergy Verified 03/26/23 14:07 Review of Systems Review of Systems: CONSTITUTIONAL: Denies body aches, fever, chills ENT: Denies rhinorrhea, congestion CARDIOVASCULAR: Denies chest pain, palpitations, or edema. RESPIRATORY: Denies cough or dyspnea. GASTROINTESTINAL: Endorses abdominal cramping, nausea, belching, flatus Denies vomiting, diarrhea, hematochezia, melena, hematemesis GENITOURINARY: Denies dysuria, hematuria, or CVA tenderness. SKIN: Denies rash, itching, or wounds. MUSCULOSKELETAL: Denies back pain, joint pain, or myalgia. NEUROLOGIC: Denies headache, numbness, tingling, or weakness. All systems reviewed & are unremarkable except as noted in HPI and below PMFSH Past Medical History Medical History Fatty liver Herpes PCOS (polycystic ovarian syndrome) Stomach problems possible gastritis Type 2 diabetes mellitus Surgical History Surgical History No significant past surgical history Family History Family History Grandparent Cancer spread everywhere, unknown cause Father Cerebrovascular accident Mother Hypertension Thyroid disorder Arthritis Social History Social History Smoking status: Never smoker Alcohol intake: current Alcohol use details: occasionally Substance use: current Substance use type: marijuana Lack of Transportation: No Lack of Food: Never True Current Housing: I Have Housing Concerned About Future Housing: No Difficulty Paying Gas/Electric Bills: No Difficulty Paying for Meds: No Currently Unemployed: No Education: High School Diploma/GED Difficulty w/ Childcare or Family Care: No Living arrangements: with family Comments At time of signature, I have reviewed and agree with nursing past medical, surgical, social and family history unless otherwise noted. Please see nursing chart for further information. There is no relevant family history pertinent to the presenting complaint Exam Narrative: GENERAL: Well-appearing, and in no acute distress. EYES: EOMI. Conjunctivae normal. ENT: Mucous membranes pink and moist. CHEST: No respiratory distress. Clear to auscultation. HEART: Regular rate and rhythm. No murmur appreciated. Normal peripheral pulses. ABDOMEN: abd soft, nondistended, normal active bowel sounds. Nontender abdomen, No guarding, re
== END 2023-03-26 15:00 | disposition home or self-care (01) ==
PROVIDERS: Emergency Provider Nurse Practitioner Family; PCP Internal Medicine Infectious Disease
DX: R10.13 Epigastric pain (principal); F12.90 Cannabis use, unspecified, uncomplicated; K76.0 Fatty (change of) liver, not elsewhere classified; E28.2 Polycystic ovarian syndrome; E11.9 Type 2 diabetes mellitus without complications
CPT/HCPCS: 99213; G0463

== ENCOUNTER 2023-03-29 07:05 | Emergency (ER) | payer OTHER, SELFPAY ==
--- NOTE | ~2023-03-29 | CT_ITS ---
EXAMINATION: CT abdomen pelvis w con DATE: 03/29/2023 08:53 INDICATION: Right lower quadrant abdominal pain. Nausea. TECHNIQUE: Computed tomography (CT) of the abdomen and pelvis was performed with 100 mL Omnipaque 350 intravenous contrast. Automated exposure control and iterative reconstruction technique were employe d. The dose-length product was 456.68 mGy-cm. COMPARISON: CT abdomen and pelvis 08/24/2022 FINDINGS: The visualized portions of the lung bases demonstrate mild atelectasis. No pleural effusion . The heart size is normal. No pericardial effusion. There is diffuse hepatic steatosis. The gallblad cirilo, spleen, pancreas, adrenal glands, and kidneys are normal. There are no dilated loops of bowel. T he appendix is normal. There are no pathologically enlarged lymph nodes. There is no free intraperito vern fluid. There is levoscoliosis of thoracolumbar spine. IMPRESSION: 1. Diffuse hepatic steatosis. Reviewed, dictated and finalized at location A.
[2023-03-29 07:09] VITALS: BP 118/64; PULSE 86; RESP 16; TEMP 36.1; O2SAT 100
[2023-03-29 07:53] VITALS: BP 107/70; PULSE 73; RESP 23; O2SAT 99
[2023-03-29 08:11] LABS: Basophils Percent Auto 0.3 % (0.2-1.2); Eosinophils Absolute Auto 0.1 K/mm3 (0-0.3); Eosinophils Percent Auto 1.3 % (0-4.4); Immature Granulocyte Absolute 0.03 K/mm3 (0.00-0.031); Immature Granulocyte Percent A 0.3 % (0-0.5); Lymphocytes Absolute Auto 2.51 K/mm3 (0.9-3.2); Mean Corpuscular HGB Conc 34.1 g/dl (32-36); Mean Corpuscular Hemoglobin 30.9 pg (26-34); Mean Corpuscular Volume 90.5 fl (80-100); Mean Platelet Volume 12.5 fl (7.4-10.4); Monocytes Absolute Auto 0.7 K/mm3 (0.1-0.6); Monocytes Percent Auto 7.4 % (2.6-8.5); Neutrophils Absolute Auto 5.9 K/mm3 (1.3-6.7); Neutrophils Percent Auto 63.7 % (45.5-73.1); Platelet Count Result 137 k/mm3 (150-375); Red Blood Count 4.86 M/mm3 (4.2-5.4); Red Cell Distribution Width 12.2 % (11.5-14.5); White Blood Count 9.3 K/mm3 (4.5-10.0)
[2023-03-29 08:16] LABS: Appearance Urine Clear (Clear); Bacteria Urine None Seen /hpf; Bilirubin Urine Negative (Negative); Blood Urine 2+ (Negative); Color Urine Yellow (Yellow); Glucose Urine UA 3+ mg/dL (Negative); Ketones Urine 1+ mg/dL (Negative); Leukocyte Esterase Ur Negative LEU/UL (Negative); Nitrate Urine Negative (Negative); Non Pathogenic Casts 0-2; Protein Urine Negative (Negative); Squamous Epithelial Cell Urine None seen /hpf (Few); Urobilinogen Urine 0.2 mg/dL (<2.0); WBC Urine 0-5 /hpf; pH Urine 5.5 (5.0-9.0)
[2023-03-29 08:19] LABS: Specific Grav Ur 1.036 (1.001-1.035)
[2023-03-29 08:20] LABS: Add Urine Microscopic? YES
[2023-03-29 08:25] LABS: Alanine Aminotransferase 27 U/L (6-35); Albumin Level 4.5 g/dL (3.5-5.1); Alkaline Phosphatase 108 U/L (38-126); Anion Gap 9 mmol/L (8-16); Aspartate Amino Transferase 31 U/L (14-36); Bilirubin,Total 0.6 mg/dL (0.2-1.3); Blood Urea Nitrogen 18 mg/dL (7-17); Calcium 8.8 mg/dL (8.4-10.2); Carbon Dioxide 19 mmol/L (22-30); Chloride 104 mmol/L (98-107); Estimated CRCL calculation 129 ml/min; Estimated Glomerular Filt Rate > 60; Glucose 242 mg/dL (65-110); Lipase 130 U/L (23-300); Potassium 4.4 mmol/L (3.4-5.0); Sodium 132 mmol/L (137-145)
[2023-03-29 09:26] VITALS: BP 119/76; PULSE 68; RESP 12; O2SAT 100
[2023-03-29 10:22] VITALS: BP 123/78; PULSE 85; RESP 20; O2SAT 100
--- NOTE | 2023-03-29 10:30 | ED.ABDPAIN ---
HPI - Abdominal Pain General Chief Complaint: Abdominal Pain Stated Complaint: abdominal pain Time Seen by Provider: 03/29/23 07:58 History of Present Illness HPI narrative: Pt presents with crampy lower abdomina pain and diarrhea overnight and this morning. Pt denies urinary symptoms. Pt says she was constipated and this resolved but now having diarrhea. Related Data Home Medications Medication Instructions Recorded Confirmed blood sugar diagnostic (OneTouch 11/01/22 03/26/23 Verio test strips) blood-glucose meter (OneTouch 11/01/22 03/26/23 Verio Reflect Meter) lancets 30 gauge (OneTouch Delica 11/01/22 03/26/23 Plus Lancet) etonogestrel 68 mg subdermal 1 implant subdermal ONCE 01/05/23 03/26/23 implant (Nexplanon) cetirizine 10 mg tablet (Zyrtec) 10 mg PO DAILY 03/05/23 03/26/23 dicyclomine 10 mg capsule 10 mg PO TID 03/26/23 03/26/23 Allergies Allergy/AdvReac Type Severity Reaction Status Date / Time No Known Allergies Allergy Verified 03/29/23 07:51 Review of Systems Review of Systems: All systems reviewed & are unremarkable except as noted in HPI and below PMFSH Past Medical History Medical History Fatty liver Herpes PCOS (polycystic ovarian syndrome) Stomach problems possible gastritis Type 2 diabetes mellitus Surgical History Surgical History No significant past surgical history Family History Family History Grandparent Cancer spread everywhere, unknown cause Father Cerebrovascular accident Mother Hypertension Thyroid disorder Arthritis Social History Social History Smoking status: Never smoker Alcohol intake: current Alcohol use details: occasionally Substance use: current Substance use type: marijuana Lack of Transportation: No Lack of Food: Never True Current Housing: I Have Housing Concerned About Future Housing: No Difficulty Paying Gas/Electric Bills: No Difficulty Paying for Meds: No Currently Unemployed: No Education: High School Diploma/GED Difficulty w/ Childcare or Family Care: No Living arrangements: with family Exam Const: General: healthy appearing Nutritional Appearance: well nourished Orientation/consciousness: patient oriented x3 Limitations: no limitations Chest: Chest palpation & inspection: normal inspection of the chest Resp: Effort & Inspection: normal respiratory effort Auscultation: clear to auscultation bilaterally Cardio: Rate: regular rate Rhythm: regular rhythm GI: GI Palp: Yes Soft to palpation and Yes Tenderness to palpation present (GI) (mild lower tenderness) Auscultation: normal bowel sounds Back/Spine/Pelvis: Back: no CVA tenderness Skin: General skin exam: normal color Rashes: no rashes Wounds: no wounds Neuro: General: patient oriented x3, moves all extremities, no meningeal signs and no focal motor deficits Cranial nerves: Yes Nystagmus not present Speech: normal speech Extrem: General: normal to inspection and no clubbing, cyanosis or edema Psych: Mental Status: mental status grossly normal Affect: normal affect Attitude: cooperative Course Vital Signs Vital signs: Vital Signs Temperature 97.0 F L 03/29/23 07:09 Pulse Rate 86 03/29/23 07:09 Respiratory Rate 16 03/29/23 07:09 Blood Pressure 118/64 03/29/23 07:09 Pulse Oximetry 100 03/29/23 07:09 Oxygen Delivery Room Air 03/29/23 07:09 Temperature 97.0 F L 03/29/23 07:09 Pulse Rate 89 03/29/23 10:44 Respiratory Rate 19 03/29/23 10:44 Blood Pressure 112/62 03/29/23 10:44 Pulse Oximetry 100 03/29/23 10:44 Oxygen Delivery Room Air 03/29/23 07:09 MDM - Abdominal Pain Differential Diagnosis Differential diagnosis: Likely abdominal pain, acute appendic
[2023-03-29 10:44] VITALS: BP 112/62; PULSE 89; RESP 19; O2SAT 100
== END 2023-03-29 10:47 | disposition home or self-care (01) ==
PROVIDERS: Emergency Provider Emergency Medicine; PCP Internal Medicine Infectious Disease
DX: K76.0 Fatty (change of) liver, not elsewhere classified (principal); R10.30 Lower abdominal pain, unspecified; E28.2 Polycystic ovarian syndrome; E11.9 Type 2 diabetes mellitus without complications; Z79.85 Long-term (current) use of injectable non-insulin antidiabetic drugs; Z79.4 Long term (current) use of insulin
CPT/HCPCS: 36415; 74177; 80053; 81001; 81025; 83690; 85025; 99284; Q9967

== ENCOUNTER 2023-04-12 10:57 | Emergency (ER) | payer OTHER, SELFPAY ==
--- NOTE | 2023-04-12 11:00 | ED.ABDPAIN ---
HPI - Abdominal Pain General Chief Complaint: Abdominal Pain Stated Complaint: Abdominal Pain Time Seen by Provider: 04/12/23 11:00 Source: patient Mode of arrival: ambulatory Limitations: no limitations History of Present Illness HPI narrative: Sarah is a 27-year-old female patient presenting to the clinic today with complaints of abdominal pain, nausea, vomiting, diarrhea x2-3 days. She reports she ate some bad [place] food on Sunday and symptoms began on Sunday. Reports she was at work today and vomited 1 time. Works at a [employer]. Also notes that she is had diarrhea for 4 times today. Is being worked up for her stomach issues by GI. Possibly has IBS. Related Data Home Medications Medication Instructions Recorded Confirmed blood sugar diagnostic ([employer] 11/01/22 04/12/23 Verio test strips) blood-glucose meter ([employer] 11/01/22 04/12/23 Verio Reflect Meter) lancets 30 gauge (OneTouch Delica 11/01/22 04/12/23 Plus Lancet) etonogestrel 68 mg subdermal 1 implant subdermal ONCE 01/05/23 04/12/23 implant (Nexplanon) cetirizine 10 mg tablet (Zyrtec) 10 mg PO DAILY 03/05/23 04/12/23 Allergies Allergy/AdvReac Type Severity Reaction Status Date / Time No Known Allergies Allergy Verified 04/04/23 10:49 Review of Systems Review of Systems: Pertinent positives per HPI. Patient denies any fever, chills, rash, headache, visual changes, dizziness, cough, runny nose, sore throat, shortness of breath, chest pain, palpitations, constipation, or any urinary issues. [facility] Past Medical History Medical History Fatty liver Herpes PCOS (polycystic ovarian syndrome) Stomach problems possible gastritis Type 2 diabetes mellitus Surgical History Surgical History No significant past surgical history Family History Family History Grandparent Cancer spread everywhere, unknown cause Father Cerebrovascular accident Mother Hypertension Thyroid disorder Arthritis Social History Social History (Reviewed 04/12/23 @ 11:01 by DIANNE Erwin Smoking status: Never smoker Alcohol intake: current Alcohol use details: occasionally Substance use: current Substance use type: marijuana Lack of Transportation: No Lack of Food: Never True Current Housing: I Have Housing Concerned About Future Housing: No Difficulty Paying Gas/Electric Bills: No Difficulty Paying for Meds: No Currently Unemployed: No Education: High School Diploma/GED Difficulty w/ Childcare or Family Care: No Living arrangements: with family Comments At the time of my signature, I reviewed and agree with the nursing past medical, surgical, social, and family history. There is no relevant family history pertinent to the patient complaint. Exam Narrative: General: Well-developed, well nourished, in no apparent distress. Head: Normocephalic, atraumatic. Cardio: Regular rate and rhythm, s1 and s2 normal, no murmur appreciated. Resp: Clear to auscultation bilaterally, no rhonchi, rales, wheezing or rubs. Abdomen: Soft, pliable, bowel sounds present in all quadrants, generalized tender to palpation, no organomegly, no CVAT tenderness. Course Course Emergency Course: Portions of this record may have been created with voice recognition software. Level of Care: Express Care Visit Vital Signs Vital signs: Vital signs reviewed MDM - Abdominal Pain MDM Narrative Medical decision making narrative: At the time of visit patient is resting comfortably on the exam table. 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 States she has another follow-up appointment next week with the GI specialist.
[2023-04-12 11:03] VITALS: BP 112/87; PULSE 101; RESP 16; TEMP 36.6; O2SAT 99
[2023-04-12 11:05] VITALS: BP 112/87; PULSE 101; RESP 16; TEMP 36.6; O2SAT 99
== END 2023-04-12 11:35 | disposition home or self-care (01) ==
PROVIDERS: Emergency Provider Nurse Practitioner Family; PCP Internal Medicine Infectious Disease
DX: K52.9 Noninfective gastroenteritis and colitis, unspecified (principal); E11.9 Type 2 diabetes mellitus without complications; Z79.899 Other long term (current) drug therapy
CPT/HCPCS: 99211; G0463

== ENCOUNTER 2023-04-17 08:23 | Outpatient (RCR) | payer OTHER, SELFPAY | END 2023-07-02 09:36 | disposition home or self-care (01) | LOC: ANHDMC 08:23 | PROVIDERS: PCP Internal Medicine Infectious Disease; Visit Provider Internal Medicine | DX: E11.65 Type 2 diabetes mellitus with hyperglycemia (principal); Z71.89 Other specified counseling | CPT/HCPCS: G0108 ==

== ENCOUNTER 2023-04-23 12:55 | Emergency (ER) | payer OTHER, SELFPAY ==
--- NOTE | 2023-04-23 13:05 | ED.HA ---
HPI - Headache General Chief Complaint: Headache Stated Complaint: vomiting,headache Time Seen by Provider: 04/23/23 13:25 Source: patient and RN notes reviewed Mode of arrival: ambulatory Limitations: no limitations History of Present Illness HPI Narrative: 27-year-old female presents with concern for headache, vomiting that started overnight. She reports she has vomited twice. She denies nasal congestion, rhinorrhea, sore throat, cough. She denies known sick contacts. Reports she took Tylenol with only mild relief of her headache. MD elicited complaint: headache Related Data Home Medications Medication Instructions Recorded Confirmed blood sugar diagnostic ([employer] 11/01/22 04/23/23 Verio test strips) blood-glucose meter ([employer] 11/01/22 04/23/23 Verio Reflect Meter) lancets 30 gauge (OneTouch [employer]ica 11/01/22 04/23/23 Plus Lancet) etonogestrel 68 mg subdermal 1 implant subdermal ONCE 01/05/23 04/23/23 implant (Nexplanon) cetirizine 10 mg tablet (Zyrtec) 10 mg PO DAILY 03/05/23 04/23/23 Allergies Allergy/AdvReac Type Severity Reaction Status Date / Time No Known Allergies Allergy Verified 04/04/23 10:49 Review of Systems Review of Systems: CONSTITUTIONAL: Denies malaise, chills, sweats, or fever. Reports fatigue EYES: Denies visual changes, redness, or discharge. ENT: Denies rhinorrhea, congestion, sinus pain, otalgia and sore throat. CARDIOVASCULAR: Denies chest pain, palpitations, or edema. RESPIRATORY: Denies cough. Denies dyspnea. GASTROINTESTINAL: Denies abdominal pain, diarrhea. Reports nausea and vomiting SKIN: Denies rash or itching. MUSCULOSKELETAL: Denies myalgia. NEUROLOGIC: Reports headache. All systems reviewed & are unremarkable except as noted in HPI and below PMFSH Past Medical History Medical History Fatty liver Herpes PCOS (polycystic ovarian syndrome) Stomach problems possible gastritis Type 2 diabetes mellitus Surgical History Surgical History No significant past surgical history Family History Family History Grandparent Cancer spread everywhere, unknown cause Father Cerebrovascular accident Mother Hypertension Thyroid disorder Arthritis Social History Social History Smoking status: Never smoker Alcohol intake: current Alcohol use details: occasionally Substance use: current Substance use type: marijuana Lack of Transportation: No Lack of Food: Never True Current Housing: I Have Housing Concerned About Future Housing: No Difficulty Paying Gas/Electric Bills: No Difficulty Paying for Meds: No Currently Unemployed: No Education: High School Diploma/GED Difficulty w/ Childcare or Family Care: No Living arrangements: with family Comments At time of signature, agree with nursing past medical, surgical, social and family history. There is no relevant family history pertinent to the presenting complaint Exam Narrative: GENERAL: Well-appearing, well-nourished, and in no acute distress. HEAD: Normocephalic EYES: PERRLA, conjunctivae clear ENT: Nares clear. Mucous membranes moist. TM pearly doyle with sharp light reflex bilaterally; no tragal tenderness. Oropharynx not erythematous without lesions. Tonsils not enlarged and without exudate, no drooling, no hoarseness, no trismus, uvula midline. NECK: Supple. No lymphadenopathy CHEST: Clear to auscultation, breath sounds equal. No wheezing, rhonchi, rales, or stridor. No respiratory distress, speaks in full sentences. HEART: Regular rate and rhythm. No murmur heard. ABD: Soft, nontender, normoactive bowel sounds SKIN: Warm, dry, no rash. NEURO: Alert and oriented x3. PSYCH: Normal mood and affect Course Course Emergen[facility]
[2023-04-23 13:06] VITALS: BP 119/80; PULSE 75; RESP 16; TEMP 36.7; O2SAT 100
== END 2023-04-23 13:51 | disposition home or self-care (01) ==
PROVIDERS: Emergency Provider Nurse Practitioner; PCP Internal Medicine Infectious Disease
DX: B34.9 Viral infection, unspecified (principal); Z20.822 Contact with and (suspected) exposure to COVID-19; F12.90 Cannabis use, unspecified, uncomplicated; K76.0 Fatty (change of) liver, not elsewhere classified; E28.2 Polycystic ovarian syndrome; E11.9 Type 2 diabetes mellitus without complications
CPT/HCPCS: 81003; 87081; 87426; 87804; 87880; 99213; C9803; G0463

== ENCOUNTER 2023-05-03 12:49 | Emergency (ER) | payer OTHER, SELFPAY ==
--- NOTE | ~2023-05-03 | XR_ITS ---
XR chest 2V DATE: 05/03/2023 13:30 INDICATION: Productive cough for 10 days. TECHNIQUE: 2 views COMPARISON: 02/14/2023 PA and lateral chest FINDINGS: Mild to moderate thoracic dextroscoliosis and thoracolumbar levoscoliosis. Normal heart size. No hilar or mediastinal enlargement. No pulmonary infiltrate or consolidation, ple ural effusion or pulmonary vascular congestion or pneumothorax is detected. IMPRESSION: No active cardiopulmonary disease Reviewed, dictated and finalized at location L.
[2023-05-03 12:57] VITALS: BP 119/85; PULSE 91; RESP 16; TEMP 36.7; O2SAT 99
--- NOTE | 2023-05-03 13:09 | ED.URI ---
HPI - URI/Sore Throat General Chief Complaint: Upper Respiratory Infection Stated Complaint: Sore Throat;Chest pain Time Seen by Provider: 05/03/23 13:05 Source: patient and RN notes reviewed Mode of arrival: ambulatory Limitations: no limitations History of Present Illness HPI Narrative: Patient presents today complaining of 10 day history of cough, congestion, postnasal drip, sneezing, body aches, fatigue. Patient woke up at 4:00 a.m. this morning with worse cough and chest heaviness. Denies fever. Patient has been using some Zyrtec and [id number] cough medicine without much relief. Patient was seen 10 days ago at [facility] and diagnosed with a viral illness. Related Data Home Medications Medication Instructions Recorded Confirmed blood sugar diagnostic ([facility] 05/03/23 Verio test strips) blood-glucose meter ([facility] 05/03/23 Verio Reflect Meter) lancets 30 gauge (OneTouch Delica 11/01/22 05/03/23 Plus Lancet) etonogestrel 68 mg subdermal 1 implant subdermal ONCE 01/05/23 05/03/23 implant (Nexplanon) cetirizine 10 mg tablet (Zyrtec) 10 mg PO DAILY 03/05/23 05/03/23 empagliflozin 25 mg tablet 25 mg PO DAILY 05/03/23 05/03/23 (Jardiance) insulin glargine 100 unit/mL (3 34 unit subcut QPM 05/03/23 05/03/23 mL) subcutaneous pen (Lantus Solostar U-100 Insulin) Allergies Allergy/AdvReac Type Severity Reaction Status Date / Time No Known Allergies Allergy Verified 05/03/23 13:01 Review of Systems Review of Systems: CONSTITUTIONAL: Denies fever, chills, or sweats.+ body aches, fatigue EYES: Denies visual changes, redness, or discharge. ENT: Denies rhinorrhea, sore throat, or otalgia.+ congestion, postnasal drip, sneezing CARDIOVASCULAR: Denies chest pain, palpitations, or edema. RESPIRATORY: Denies dyspnea.+ cough, chest heaviness GASTROINTESTINAL: Denies abdominal pain, nausea, vomiting, or diarrhea. GENITOURINARY: Denies dysuria or hematuria. SKIN: Denies rash, itching, or wounds. MUSCULOSKELETAL: Denies back pain, joint pain, or myalgia. NEUROLOGIC: Denies headache, numbness, tingling, or weakness. PSYCH: Denies depression or anxiety. [facility] Past Medical History Medical History Fatty liver Herpes PCOS (polycystic ovarian syndrome) Stomach problems possible gastritis Type 2 diabetes mellitus Surgical History Surgical History No significant past surgical history Family History Family History Grandparent Cancer spread everywhere, unknown cause Father Cerebrovascular accident Mother Hypertension Thyroid disorder Arthritis Social History Social History Smoking status: Never smoker Alcohol intake: current Alcohol use details: occasionally Substance use: current Substance use type: marijuana Lack of Transportation: No Lack of Food: Never True Current Housing: I Have Housing Concerned About Future Housing: No Difficulty Paying Gas/Electric Bills: No Difficulty Paying for Meds: No Currently Unemployed: No Education: High School Diploma/GED Difficulty w/ Childcare or Family Care: No Living arrangements: with family Comments At time of signature, I have reviewed and agree with nursing past medical, surgical, social and family history unless otherwise noted. Please see nursing chart for further information. There is no relevant family history pertinent to the presenting complaint Exam Narrative: GENERAL: Mildly ill-appearing, well-nourished, and in no acute distress. HEAD: Normocephalic, atraumatic. EYES: EOMI. No redness or drainage. Conjunctivae normal. ENT: Mucous membranes pink and moist. Nares clear. No rhinorrhea. TMs normal bilaterally. Throat lorenzo
== END 2023-05-03 13:55 | disposition home or self-care (01) ==
PROVIDERS: Emergency Provider Nurse Practitioner
DX: J01.90 Acute sinusitis, unspecified (principal); K76.0 Fatty (change of) liver, not elsewhere classified; E28.2 Polycystic ovarian syndrome; E11.9 Type 2 diabetes mellitus without complications; F12.90 Cannabis use, unspecified, uncomplicated; Z79.4 Long term (current) use of insulin
CPT/HCPCS: 71046; 99213; G0463

== ENCOUNTER 2023-05-25 11:38 | Emergency (ER) | payer OTHER, SELFPAY ==
[2023-05-25 11:45] VITALS: BP 125/78; PULSE 80; RESP 16; TEMP 36.8; O2SAT 99
--- NOTE | 2023-05-25 11:58 | ED.ABDPAIN ---
HPI - Abdominal Pain General Chief Complaint: Abdominal Pain Stated Complaint: Abdominal Pain Time Seen by Provider: 05/25/23 11:45 Source: patient Mode of arrival: ambulatory Limitations: no limitations History of Present Illness HPI narrative: Sarah is a 27-year-old female patient presenting to the clinic today with complaints of generalized abdominal discomfort, nausea, and diarrhea. She reports no fever or chills. Just started back on her insulin and thinks that this may be causing her issues. She had to leave work due to her pain today. States this been going on for approximately 3 days but is getting better. She reports she took her dicyclomine in her Zofran and feels much better but is requesting a work note today. Related Data Home Medications Medication Instructions Recorded Confirmed blood sugar diagnostic ([employer] 11/01/22 05/25/23 Verio test strips) blood-glucose meter ([employer] 11/01/22 05/25/23 Verio Reflect Meter) lancets 30 gauge (OneTouch Delica 11/01/22 05/25/23 Plus Lancet) etonogestrel 68 mg subdermal 1 implant subdermal ONCE 01/05/23 05/25/23 implant (Nexplanon) empagliflozin 25 mg tablet 25 mg PO DAILY 05/03/23 05/25/23 (Jardiance) insulin glargine 100 unit/mL (3 34 unit subcut QPM 05/03/23 05/25/23 mL) subcutaneous pen (Lantus Solostar U-100 Insulin) Allergies Allergy/AdvReac Type Severity Reaction Status Date / Time No Known Allergies Allergy Verified 05/25/23 11:52 Review of Systems Review of Systems: Pertinent positives per HPI. Patient denies any fever, chills, rash, headache, visual changes, dizziness, cough, runny nose, sore throat, shortness of breath, chest pain, palpitations, vomiting, constipation, or any urinary issues. [facility] Past Medical History Medical History Fatty liver Herpes PCOS (polycystic ovarian syndrome) Stomach problems possible gastritis Type 2 diabetes mellitus Surgical History Surgical History No significant past surgical history Family History Family History Grandparent Cancer spread everywhere, unknown cause Father Cerebrovascular accident Mother Hypertension Thyroid disorder Arthritis Social History Social History Smoking status: Never smoker Alcohol intake: current Alcohol use details: occasionally Substance use: current Substance use type: marijuana Lack of Transportation: No Lack of Food: Never True Current Housing: I Have Housing Concerned About Future Housing: No Difficulty Paying Gas/Electric Bills: No Difficulty Paying for Meds: No Currently Unemployed: No Education: High School Diploma/GED Difficulty w/ Childcare or Family Care: No Living arrangements: with family Comments At the time of my signature, I reviewed and agree with the nursing past medical, surgical, social, and family history. There is no relevant family history pertinent to the patient complaint. Exam Narrative: General: Well-developed, well nourished, in no apparent distress. Head: Normocephalic, atraumatic. Cardio: Regular rate and rhythm, s1 and s2 normal, no murmur appreciated. Resp: Clear to auscultation bilaterally, no rhonchi, rales, wheezing or rubs. Abdomen: Soft, pliable, bowel sounds present in all quadrants, non-tender to palpation, no organomegly, no CVAT tenderness. Course Course Emergency Course: Portions of this record may have been created with voice recognition software. Level of Care: Express Care Visit Vital Signs Vital signs: Vital Signs Temperature 36.8 C 05/25/23 11:45 Pulse Rate 80 05/25/23 11:45 Respiratory Rate 16 05/25/23 11:45 Blood Pressure 125/78 05/25/23 11:45 Pulse Oximetry 99 05/25/23 11:45
== END 2023-05-25 12:02 | disposition home or self-care (01) ==
PROVIDERS: Emergency Provider Nurse Practitioner Family; PCP Internal Medicine Infectious Disease
DX: K52.9 Noninfective gastroenteritis and colitis, unspecified (principal); F12.90 Cannabis use, unspecified, uncomplicated; K76.0 Fatty (change of) liver, not elsewhere classified; E28.2 Polycystic ovarian syndrome; E11.9 Type 2 diabetes mellitus without complications; Z79.4 Long term (current) use of insulin
CPT/HCPCS: 99211; G0463

== ENCOUNTER 2023-06-05 09:08 | Emergency (ER) | payer OTHER, SELFPAY ==
[2023-06-05] VITALS (11 sets, daily range): BP systolic 101–125; BP diastolic 67–87; PULSE 79–100; RESP 15–20; TEMP 37; O2SAT 99–100
[2023-06-05 09:28] LABS: Glucose Point of Care 275 mg/dl (65-105)
[2023-06-05 09:43] LABS: Basophils Percent Auto 0.3 % (0.2-1.2); Eosinophils Absolute Auto 0.1 K/mm3 (0-0.3); Eosinophils Percent Auto 0.7 % (0-4.4); Hematocrit 44.6 % (37.0-47.0); Hemoglobin 14.5 g/dL (12.0-15.0); Immature Granulocyte Absolute 0.04 K/mm3 (0.00-0.031); Immature Granulocyte Percent A 0.3 % (0-0.5); Lymphocytes Absolute Auto 2.41 K/mm3 (0.9-3.2); Lymphocytes Percent Auto 20.8 % (18.3-44.2); Mean Corpuscular HGB Conc 32.5 g/dl (32-36); Mean Corpuscular Hemoglobin 29.5 pg (26-34); Mean Corpuscular Volume 90.8 fl (80-100); Mean Platelet Volume 12.1 fl (7.4-10.4); Monocytes Absolute Auto 0.6 K/mm3 (0.1-0.6); Monocytes Percent Auto 4.9 % (2.6-8.5); Neutrophils Absolute Auto 8.5 K/mm3 (1.3-6.7); Platelet Count Result 155 k/mm3 (150-375); Red Blood Count 4.91 M/mm3 (4.2-5.4); Red Cell Distribution Width 11.9 % (11.5-14.5); White Blood Count 11.6 K/mm3 (4.5-10.0)
[2023-06-05 09:55] LABS: Alanine Aminotransferase 28 U/L (6-35); Albumin Level 4.6 g/dL (3.5-5.1); Alkaline Phosphatase 79 U/L (38-126); Anion Gap 14 mmol/L (8-16); Aspartate Amino Transferase 23 U/L (14-36); Bilirubin,Total 0.6 mg/dL (0.2-1.3); Blood Urea Nitrogen 15 mg/dL (7-17); Calcium 9.3 mg/dL (8.4-10.2); Carbon Dioxide 17 mmol/L (22-30); Chloride 106 mmol/L (98-107); Estimated CRCL calculation 157 ml/min; Estimated Glomerular Filt Rate > 60; Glucose 274 mg/dL (65-110); Magnesium 1.9 mg/dL (1.6-2.3); Phosphorus 3.9 mg/dL (2.5-4.5); Potassium 4.6 mmol/L (3.4-5.0); Sodium 137 mmol/L (137-145)
[2023-06-05 09:56] LABS: Appearance Urine Clear (Clear); Bacteria Urine Rare /hpf; Bilirubin Urine Negative (Negative); Blood Urine 2+ (Negative); Color Urine Yellow (Yellow); Glucose Urine UA 3+ mg/dL (Negative); Ketones Urine Trace mg/dL (Negative); Leukocyte Esterase Ur Negative LEU/UL (Negative); Nitrate Urine Negative (Negative); Non Pathogenic Casts 0-2; Protein Urine 2+ mg/dL (Negative); RBC Urine 21-50 /hpf (0-2); Squamous Epithelial Cell Urine Occasional /hpf (Few); Urobilinogen Urine 0.2 mg/dL (<2.0); WBC Urine 0-5 /hpf; pH Urine 6.5 (5.0-9.0)
[2023-06-05 09:57] LABS: Add Urine Microscopic? YES
--- NOTE | 2023-06-05 10:04 | ED.GENADULT ---
HPI - General Adult General Chief complaint: Recheck/Abnormal Lab/Rx Stated complaint: ELEVATED BLOOD SUGAR Time Seen by Provider: 06/05/23 09:26 Source: patient Mode of arrival: ambulatory Limitations: no limitations History of Present Illness HPI narrative: Patient is a 27 y/o female who presents to the ED with c/o elevated BG. patient reports history of type 2 diabetes, currently on Trulicity and insulin. She sees Dr. Fonseca with endocrinology. She states she was taken off of her Jardiance last Sunday. Since that her blood sugars have been elevated up into the upper 100s, low 200s. Last night into this morning her blood sugar was elevated to the 270s, which prompted her presentation. She reports ongoing issues with abdominal and lower back pain for which she has been seeing GI/OBGYN, but states the pain was worse last night. She also reported having diarrhea and nausea last night. Denies current abdominal pain, vomiting, fevers, cough or cold symptoms. Related Data Home Medications Medication Instructions Recorded Confirmed blood sugar diagnostic ([employer] 11/01/22 05/25/23 Verio test strips) blood-glucose meter ([employer] 11/01/22 05/25/23 Verio Reflect Meter) lancets 30 gauge (OneTouch Delica 11/01/22 05/25/23 Plus Lancet) etonogestrel 68 mg subdermal 1 implant subdermal ONCE 01/05/23 05/25/23 implant (Nexplanon) empagliflozin 25 mg tablet 25 mg PO DAILY 05/03/23 05/25/23 ([facility]) insulin glargine 100 unit/mL (3 34 unit subcut QPM 05/03/23 05/25/23 mL) subcutaneous pen (Lantus Solostar U-100 Insulin) Allergies Allergy/AdvReac Type Severity Reaction Status Date / Time No Known Allergies Allergy Verified 06/05/23 09:48 Review of Systems Review of Systems: CONSTITUTIONAL: Denies fever, chills, or sweats. CARDIOVASCULAR: Denies chest pain. RESPIRATORY: Denies dyspnea. GASTROINTESTINAL: See HPI. GENITOURINARY: Denies dysuria or hematuria. SKIN: Denies rash or itching. MUSCULOSKELETAL: See HPI. All systems reviewed & are unremarkable except as noted in HPI and below PMFSH Past Medical History Medical History Fatty liver Herpes PCOS (polycystic ovarian syndrome) Stomach problems possible gastritis Type 2 diabetes mellitus Surgical History Surgical History No significant past surgical history Family History Family History Grandparent Cancer spread everywhere, unknown cause Father Cerebrovascular accident Mother Hypertension Thyroid disorder Arthritis Social History Social History Smoking status: Never smoker Alcohol intake: current Alcohol use details: occasionally Substance use: current Substance use type: marijuana Lack of Transportation: No Lack of Food: Never True Current Housing: I Have Housing Concerned About Future Housing: No Difficulty Paying Gas/Electric Bills: No Difficulty Paying for Meds: No Currently Unemployed: No Education: High School Diploma/GED Difficulty w/ Childcare or Family Care: No Living arrangements: with family Exam Narrative: GENERAL: Well appearing, well-nourished, non-toxic, in no acute distress. HEAD: Normocephalic, atraumatic. NECK: Supple. No adenopathy, no masses. RESPIRATORY: Airway patent, respirations nonlabored. Clear to auscultation bilaterally, no rales, rhonchi, wheezing. CARDIOVASCULAR: Regular rate and rhythm without murmurs, rubs, or gallops. Radial pulses 2+ and equal bilaterally. ABDOMINAL: Soft, mild diffuse nonfocal tenderness throughout lower abdomen, nondistended, no hepatosplenomegaly. Normoactive BS. MUSCULOSKELETAL: Moves all extremities. Strength/ROM intact without gross deformities. SKIN: Warm, dry, normal color. No rashes
[2023-06-05 10:11] LABS: Beta-Hydroxybutyrate/Acetoacetate 0.15 mmol/L (0.02-0.27)
[2023-06-05] MEDS: SODIUM CHLORIDE 0.9% IV 1,000 ML 999 ML IV CONT ×2 (10:14)
[2023-06-05] MEDS: ONDANSETRON INJ 4 MG/2 ML VIAL IV PUSH (10:14)
[2023-06-05 10:39] LABS: Hemoglobin A1C 7.6 % (<5.7)
[2023-06-05 11:45] LABS: Glucose Point of Care 194 mg/dl (65-105)
== END 2023-06-05 12:22 | disposition home or self-care (01) ==
PROVIDERS: Emergency Provider Physician Assistant; PCP Internal Medicine Infectious Disease
DX: E11.65 Type 2 diabetes mellitus with hyperglycemia (principal); Z79.4 Long term (current) use of insulin; R19.7 Diarrhea, unspecified
CPT/HCPCS: 36415; 80053; 81001; 82010; 82948; 83036; 83735; 84100; 85025; 96361; 96374; 99284; J2405; J7030

== ENCOUNTER 2023-06-26 11:02 | Emergency (ER) | payer OTHER, SELFPAY ==
[2023-06-26 11:07] VITALS: BP 128/79; PULSE 84; RESP 16; TEMP 36.6; O2SAT 100
--- NOTE | 2023-06-26 11:20 | ED.GENADULT ---
HPI - General Adult General Chief complaint: Weakness Stated complaint: Weakness/Fatigue Time Seen by Provider: 06/26/23 11:21 Source: patient, RN notes reviewed and old records reviewed Mode of arrival: ambulatory Limitations: no limitations History of Present Illness HPI narrative: 27-year-old female presents to the [facility] with complaints of generalized body aches and fatigue for the last 2-3 hours. States that she took Tylenol which helped the body aches. States she has not been checking her blood sugars due to insurance and lack of supplies Onset (ago): hour(s) Related Data Home Medications Medication Instructions Recorded Confirmed blood-glucose meter ([employer] 11/01/22 05/25/23 Verio Reflect Meter) lancets 30 gauge ([employer]Touch [employer]ica 11/01/22 05/25/23 Plus Lancet) etonogestrel 68 mg subdermal 1 implant subdermal ONCE 01/05/23 06/26/23 implant (Nexplanon) insulin glargine 100 unit/mL (3 34 unit subcut QPM 05/03/23 06/26/23 mL) subcutaneous pen (Lantus Solostar U-100 Insulin) Allergies Allergy/AdvReac Type Severity Reaction Status Date / Time No Known Allergies Allergy Verified 06/26/23 11:22 Review of Systems Review of Systems: All systems reviewed & are unremarkable except as noted in HPI and below Constitutional: Constitutional: Reports as per HPI, Reports body ache(s) and Reports fatigue Eyes: Eyes: Reports no additional eye complaints ENT: Reports system reviewed and no additional complaints, except as documented Cardiovascular: Cardiovascular: Reports no additional cardiovascular complaints, Denies chest pain and Denies dyspnea Respiratory: Respiratory: Reports no additional respiratory complaints, Denies chest congestion, Denies cough and Denies dyspnea Gastrointestinal: Gastrointestinal: Reports no additional gastrointestinal complaints, Denies abdominal pain, Denies nausea and Denies vomiting Musculoskeletal: Musculoskeletal: Reports no additional musculoskeletal complaints Integumentary/Breasts: Skin/Breast: Reports system reviewed and no additional complaints, except as docu Neurologic: Reports system reviewed and no additional complaints, except as documented Psychiatric: Psychiatric: Reports no additional psychiatric complaints Allergic/Immunologic: Allergic/Immunologic: Reports no additional allergic/immunologic complaints PMFSH Past Medical History Medical History Fatty liver Herpes PCOS (polycystic ovarian syndrome) Stomach problems possible gastritis Type 2 diabetes mellitus Surgical History Surgical History No significant past surgical history Family History Family History Grandparent Cancer spread everywhere, unknown cause Father Cerebrovascular accident Mother Hypertension Thyroid disorder Arthritis Social History Social History Smoking status: Never smoker Alcohol intake: current Alcohol use details: occasionally Substance use: current Substance use type: marijuana Lack of Transportation: No Lack of Food: Never True Current Housing: I Have Housing Concerned About Future Housing: No Difficulty Paying Gas/Electric Bills: No Difficulty Paying for Meds: No Currently Unemployed: No Education: High School Diploma/GED Difficulty w/ Childcare or Family Care: No Living arrangements: with family Comments At the time of my signature, I reviewed and agree with the nursing past medical, surgical, social, and family history. There is no relevant family history pertinent to the patient complaint. Exam Const: General: cooperative, healthy appearing, comfortable, no acute distress, well developed, alert and well nourished Nutritional Appearance: well nourished Orientation/consciousness: pa
[2023-06-26 11:30] LABS: Glucose Point of Care 211 mg/dl (65-105)
== END 2023-06-26 11:35 | disposition home or self-care (01) ==
PROVIDERS: Emergency Provider Nurse Practitioner; PCP Internal Medicine Infectious Disease
DX: R52 Pain, unspecified (principal); E11.65 Type 2 diabetes mellitus with hyperglycemia; Z79.4 Long term (current) use of insulin; K76.0 Fatty (change of) liver, not elsewhere classified; E28.2 Polycystic ovarian syndrome; F12.90 Cannabis use, unspecified, uncomplicated
CPT/HCPCS: 81003; 82948; 87086; 87088; 99213; G0463

== ENCOUNTER 2023-07-02 09:50 | Emergency (ER) | payer OTHER, SELFPAY ==
--- NOTE | ~2023-07-02 | XR_ITS ---
EXAMINATION: XR hand RT min 3V INDICATION: Right hand pain, initial encounter TECHNIQUE: Three views of the right hand are obtained. COMPARISON: None available FINDINGS: There is an acute, traumatic, mildly comminuted transverse fracture at the base of the fift h metacarpal which extends to the carpal metacarpal joint. There is adjacent soft tissue swelling of the hand. There is a nondisplaced, linear fracture in the base of the fourth metacarpal extending uche ng the axis of the bone. The joint spaces are otherwise normal. IMPRESSION: 1. Acute, mildly comminuted intra-articular fracture at the base of the fifth metacarpal. 2. Nondisplaced fourth metacarpal base fracture. Reviewed, dictated and finalized at location B. [facility]ALTH RN IMPRESSION: 1. Acute, mildly comminuted intra-articular fracture at the base of the fifth m etacarpal. 2. Nondisplaced fourth metacarpal base fracture.
[2023-07-02 10:03] VITALS: BP 138/89; PULSE 66; RESP 16; TEMP 36.6; O2SAT 99
--- NOTE | 2023-07-02 10:30 | ED.UPPEXIN ---
HPI - Extremity Injury (Upper) General Chief Complaint: Extremity Injury, Upper Stated Complaint: Right Hand Pain Time Seen by Provider: 07/02/23 10:30 Source: patient Mode of arrival: ambulatory Limitations: no limitations History of Present Illness HPI narrative: 27-year-old female presents with pain and swelling to right hand. Patient reports that last night around 3:00 a.m. she was going to punch someone but missed and punched the wall. 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 Range of motion and distal Neurovascularly intact. all systems reviewed and negative except as noted above. Related Data Home Medications Medication Instructions Recorded Confirmed blood-glucose meter ([employer] 11/01/22 05/25/23 Verio Reflect Meter) lancets 30 gauge ([employer] 11/01/22 05/25/23 Plus Lancet) etonogestrel 68 mg subdermal 1 implant subdermal ONCE 01/05/23 06/26/23 implant (Nexplanon) insulin glargine 100 unit/mL (3 34 unit subcut QPM 05/03/23 06/26/23 mL) subcutaneous pen (Lantus Solostar U-100 Insulin) Allergies Allergy/AdvReac Type Severity Reaction Status Date / Time No Known Allergies Allergy Verified 06/26/23 11:22 Review of Systems Review of Systems: CONSTITUTIONAL: Denies fever, chills, or sweats. EYES: Denies visual changes, redness, or discharge. ENT: Denies rhinorrhea, congestion, sore throat, or otalgia. CARDIOVASCULAR: Denies chest pain, palpitations, or edema. RESPIRATORY: Denies cough or dyspnea. GASTROINTESTINAL: Denies abdominal pain, nausea, vomiting, or diarrhea. GENITOURINARY: Denies dysuria or hematuria. SKIN: Denies rash or itching. MUSCULOSKELETAL: Denies back pain, joint pain, or myalgia. Reports pain and swelling to right hand. NEUROLOGIC: Denies headache, numbness, or weakness. PSYCHIATRIC: Denies anxiety or depression. All other systems reviewed are negative, except as documented in HPI. [facility] Past Medical History Medical History Fatty liver Herpes PCOS (polycystic ovarian syndrome) Stomach problems possible gastritis Type 2 diabetes mellitus Surgical History Surgical History No significant past surgical history Family History Family History Grandparent Cancer spread everywhere, unknown cause Father Cerebrovascular accident Mother Hypertension Thyroid disorder Arthritis Social History Social History Smoking status: Never smoker Alcohol intake: current Alcohol use details: occasionally Substance use: current Substance use type: marijuana Lack of Transportation: No Lack of Food: Never True Current Housing: I Have Housing Concerned About Future Housing: No Difficulty Paying Gas/Electric Bills: No Difficulty Paying for Meds: No Currently Unemployed: No Education: High School Diploma/GED Difficulty w/ Childcare or Family Care: No Living arrangements: with family Comments At time of signature, agree with nursing past medical, surgical, social and family history. There is no relevant family history pertinent to the presenting complaint. Exam Narrative: GENERAL: This is a well-nourished, well-developed patient, in no apparent distress. HEAD: normocephalic, atraumatic. EYES: PERRL. Sclera clear/white. Vision is grossly intact. EARS: External ears normal NOSE: External nose normal NECK: Neck supple, non-tender without lymphadenopathy, masses or thyromegaly. CARDIOVASCULAR: Regular rate and rhythm without murmurs, gallops, or rubs. RESPIRATORY: Clear to auscultation. Breath sounds equal bilaterally. No wheezes, rales, or rhonchi. SKIN: warm, Dry, intact with no suspicious lesions or rash, good t
== END 2023-07-02 10:53 | disposition home or self-care (01) ==
PROVIDERS: Emergency Provider Nurse Practitioner Family; PCP Internal Medicine Infectious Disease
DX: S62.316A Displaced fracture of base of fifth metacarpal bone, right hand, initial encounter for closed fracture (principal); S62.344A Nondisplaced fracture of base of fourth metacarpal bone, right hand, initial encounter for closed fracture; E11.9 Type 2 diabetes mellitus without complications; W22.09XA Striking against other stationary object, initial encounter
CPT/HCPCS: 29125; 73130; 99214; A4565; G0463

== ENCOUNTER 2023-07-18 11:32 | Outpatient (CLI) | payer OTHER, SELFPAY ==
--- NOTE | ~2023-07-18 | XR_ITS ---
XR hand RT min 3V DATE: 07/18/2023 11:47 INDICATION: Displaced fracture TECHNIQUE: 3 views COMPARISON: 07/02/2023 right hand FINDINGS: There is anatomic position and alignment at the fracture of the base of the fifth metacarpa l bone. No other fracture or dislocation is noted. IMPRESSION: Anatomic position and alignment at fracture of base of fifth metacarpal Reviewed, dictated and finalized at location B. REPAIRER IMPRESSION: Anatomic position and alignment at fracture of base of fifth metaca rpal
== END 2023-07-18 11:33 | disposition home or self-care (01) ==
PROVIDERS: PCP Internal Medicine Infectious Disease; Visit Provider Plastic Surgery
DX: S62.316A Displaced fracture of base of fifth metacarpal bone, right hand, initial encounter for closed fracture (principal); X58.XXXA Exposure to other specified factors, initial encounter
CPT/HCPCS: 73130

== ENCOUNTER 2023-07-30 22:46 | Emergency (ER) | payer OTHER, SELFPAY ==
--- NOTE | ~2023-07-30 | CT_ITS ---
CT of the Abdomen and Pelvis: Indication: Abdominal pain Technique: 2.5 mm axial scans were obtained through the abdomen and pelvis following intravenous adm inistration of 100 cc of Omnipaque 350. Dose reduction technique was used on this scan by utilizing a utomated exposure control and iterative reconstruction technique. The dose-length product (DLP) was 5 04.92 mGy-cm. COMPARISON: 03/29/2023 Findings: Scans through the lung bases are unremarkable. There is diffuse fatty infiltration of liver. The spleen, pancreas, gallbladder, adrenals and kidneys are within normal limits. No evidence of aortic aneurysm. No lymphadenopathy. No bowel obstruction or bowel wall thickening. There is no evidence to suggest acute appendicitis. Images through the pelvis were performed. Urinary bladder unremarkable. No adnexal mass seen. No asci wayne. Impression: Diffuse fatty infiltration of liver. Reviewed, dictated and finalized at [facility]. T GUARD Impression: Diffuse fatty infiltration of liver.
[2023-07-30 22:47] VITALS: BP 143/99; PULSE 92; RESP 26; TEMP 37.2; O2SAT 100
[2023-07-30 22:53] LABS: Glucose Point of Care 245 mg/dl (65-105)
[2023-07-30 23:15] LABS: Basophils Absolute Auto 0.1 K/mm3 (0.0-0.1); Basophils Percent Auto 0.3 % (0.2-1.2); Eosinophils Absolute Auto 0.2 K/mm3 (0-0.3); Eosinophils Percent Auto 1.2 % (0-4.4); Hematocrit 49.1 % (37.0-47.0); Hemoglobin 16.3 g/dL (12.0-15.0); Immature Granulocyte Absolute 0.24 K/mm3 (0.00-0.031); Immature Granulocyte Percent A 1.4 % (0-0.5); Lymphocytes Absolute Auto 7.51 K/mm3 (0.9-3.2); Lymphocytes Percent Auto 43.6 % (18.3-44.2); Mean Corpuscular HGB Conc 33.2 g/dl (32-36); Mean Corpuscular Hemoglobin 29.5 pg (26-34); Mean Corpuscular Volume 88.9 fl (80-100); Mean Platelet Volume 11.9 fl (7.4-10.4); Monocytes Percent Auto 5.6 % (2.6-8.5); Neutrophils Absolute Auto 8.2 K/mm3 (1.3-6.7); Neutrophils Percent Auto 47.9 % (45.5-73.1); Nucleated Red Blood Cells Perc 0.1 % (0.0-0.2); Platelet Count Result 231 k/mm3 (150-375); Red Blood Count 5.52 M/mm3 (4.2-5.4); Red Cell Distribution Width 11.9 % (11.5-14.5); White Blood Count 17.2 K/mm3 (4.5-10.0)
[2023-07-30 23:28] LABS: Alanine Aminotransferase 41 U/L (6-35); Alkaline Phosphatase 126 U/L (38-126); Anion Gap 22 mmol/L (8-16); Aspartate Amino Transferase 34 U/L (14-36); Bilirubin,Total 0.8 mg/dL (0.2-1.3); Blood Urea Nitrogen 12 mg/dL (7-17); Calcium 10.4 mg/dL (8.4-10.2); Carbon Dioxide 16 mmol/L (22-30); Chloride 100 mmol/L (98-107); Estimated CRCL calculation 123 ml/min; Estimated Glomerular Filt Rate > 60; Glucose 270 mg/dL (65-110); Lipase 116 U/L (23-300); Potassium 3.8 mmol/L (3.4-5.0); Sodium 138 mmol/L (137-145)
[2023-07-30 23:30] VITALS: BP 139/96; PULSE 82; RESP 22; TEMP 36.6; O2SAT 100
[2023-07-30 23:52] LABS: Influenza A QL RT-PCR Negative (Negative); Influenza B QL RT-PCR Positive (Negative); RSV RNA, RT-PCR Negative (Negative); SARS-CoV-2 RNA PCR Negative (Negative)
[2023-07-30 23:52] LABS: Alveolar/Arterial O2 Gradient 31.6 mmHg; Base Excess ABG -6.9 mEq/l (+/-2.0); Device ROOM AIR; Fractional Inspired Oxygen 21 %; HCO3 ABG 16.4 mEq/l (22.0-26.0); Methemoglobin ABG 0.3 %THb (0-1.5); Oxygen Content ABG 21.7 %vol (16.0-22.0); Oxygen Saturation ABG 96.3 % (95.0-100.0); Oxyhemoglobin 94.7 % THb (90.0-100.0); PCO2 ABG 28.4 mmHg (35.0-45.0); PO2 ABG 84.1 mmHg (80.0-100.0); Site Drawn RIGHT BRACHIAL; Total Hemoglobin 16.3 g/dL (12.0-18.0)
[2023-07-30 23:56] LABS: Magnesium 1.7 mg/dL (1.6-2.3); Phosphorus 3.7 mg/dL (2.5-4.5)
[2023-07-31] LABS: Beta-Hydroxybutyrate/Acetoacetate 0.21 mmol/L (0.02-0.27)
[2023-07-31] MEDS: ONDANSETRON INJ 4 MG/2 ML VIAL IV PUSH (00:03)
[2023-07-31] MEDS: MORPHINE SULFATE (*CRX) 2 MG/ML INJ IV PUSH (00:03)
[2023-07-31] MEDS: SODIUM CHLORIDE 0.9% IV 1,000 ML 999 ML IV CONT ×3 (00:03→02:07)
--- NOTE | 2023-07-31 01:01 | ED.NAVMDI ---
HPI - Nausea/Vomiting/Diarrhea General Chief complaint: Nausea/Vomiting/Diarrhea <JOHAN Hooper Last Filed: 07/31/23 03:27> Stated complaint: n/v/d, known diabetic <JOHAN Hooper Last Filed: 07/31/23 03:27> Time Seen by Provider: 07/30/23 23:21 <JOHAN Hooper Last Filed: 07/31/23 03:27> Source: patient <JOHAN Hooper Last Filed: 07/31/23 03:27> Mode of arrival: ambulatory <JOHAN Hooper Last Filed: 07/31/23 03:27> Limitations: no limitations <JOHAN Hooper Last Filed: 07/31/23 03:27> History of Present Illness HPI Narrative: Patient is a 27-year-old female, with past medical history of insulin dependent DM, who presents to the ED with report of nausea, vomiting, diarrhea. Patient reports symptoms began this morning. She has had multiple episodes of emesis and diarrhea. Unable to keep down any food or drink. She reports pain throughout her lower abdomen. Denies fevers, cough or cold symptoms, rectal bleeding, melena, dysuria, hematuria. Denies bad food exposure. Denies family members w/ similar symptoms. <JOHAN Hooper Last Filed: 07/31/23 03:27> Related Data Home medications: Home Medications Medication Instructions Recorded Confirmed blood-glucose meter (OneTouch 11/01/22 07/04/23 Verio Reflect Meter) lancets 30 gauge (OneTouch Delica 11/01/22 07/04/23 Plus Lancet) etonogestrel 68 mg subdermal 1 implant subdermal ONCE 01/05/23 07/04/23 implant (Nexplanon) <JOHAN Hooper Last Filed: 07/31/23 03:27> Allergies/Adverse reactions: Allergies Allergy/AdvReac Type Severity Reaction Status Date / Time No Known Allergies Allergy Verified 07/18/23 10:57 <Ebony Eastman PA-C - Last Filed: 07/31/23 03:27> Review of Systems Review of Systems: CONSTITUTIONAL: Denies fever, chills, or sweats. GASTROINTESTINAL: See HPI. GENITOURINARY: Denies dysuria or hematuria. MUSCULOSKELETAL: Denies back pain, extremity pain, myalgia. <Ebony Eastman PA-C - Last Filed: 07/31/23 03:27> All systems reviewed & are unremarkable except as noted in HPI and below <Ebony Eastman PA-C - Last Filed: 07/31/23 03:27> [facility] Past Medical History Medical History: Medical History Fatty liver Herpes PCOS (polycystic ovarian syndrome) Stomach problems possible gastritis Type 2 diabetes mellitus <Ebony Eastman PA-C - Last Filed: 07/31/23 03:27> Surgical History Surgical History: Surgical History No significant past surgical history <Ebony Eastman PA-C - Last Filed: 07/31/23 03:27> Family History Family History: Family History Grandparent Cancer spread everywhere, unknown cause Father Cerebrovascular accident Mother Hypertension Thyroid disorder Arthritis <Ebony Eastman PA-C - Last Filed: 07/31/23 03:27> Social History Social History: Social History Smoking status: Never smoker Alcohol intake: current Alcohol use details: occasionally Substance use: current Substance use type: marijuana Do You Feel Safe in your Home?: Yes Lack of Transportation: No Lack of Food: Never True Current Housing: I Have Housing Concerned About Future Housing: No Difficulty Paying Gas/Electric Bills: No Difficulty Paying for Meds: No Currently Unemployed: No Education: High School Diploma/GED Difficulty w/ Childcare or Family Care: No Living arrangements: with family <JOHAN Hooper Last Filed: 07/31/23 03:27> Exam Narrative: GENERAL: Mildly ill appearing, well-nourished, non-toxic, in no acute di
[2023-07-31 01:39] LABS: Appearance Urine Cloudy (Clear); Bacteria Urine 4+ /hpf; Bilirubin Urine 1+ (Negative); Blood Urine 2+ (Negative); Color Urine Dark Yellow (Yellow); Glucose Urine UA 3+ mg/dL (Negative); Ketones Urine 1+ mg/dL (Negative); Leukocyte Esterase Ur Negative LEU/UL (Negative); Need Manual Microscopic Reviewed; Nitrate Urine Negative (Negative); Non Pathogenic Casts >20; Protein Urine 4+ mg/dL (Negative); Squamous Epithelial Cell Urine Moderate /hpf (Few)
[2023-07-31 01:43] LABS: Add Urine Microscopic? YES
[2023-07-31 01:48] VITALS: BP 115/69; PULSE 87; RESP 20; O2SAT 98
[2023-07-31 01:48] LABS: Hemoglobin A1C 9.7 % (<5.7)
[2023-07-31 02:14] VITALS: BP 110/56; PULSE 86; RESP 20; O2SAT 100
[2023-07-31 03:21] LABS: Anion Gap 10 mmol/L (8-16); Blood Urea Nitrogen 11 mg/dL (7-17); Calcium 7.4 mg/dL (8.4-10.2); Carbon Dioxide 14 mmol/L (22-30); Chloride 111 mmol/L (98-107); Estimated CRCL calculation 177 ml/min; Estimated Glomerular Filt Rate > 60; Glucose 276 mg/dL (65-110); Sodium 135 mmol/L (137-145)
[2023-07-31 04:36] VITALS: BP 138/83; PULSE 96; RESP 20; O2SAT 98
[2023-07-31 05:39] VITALS: BP 134/89; PULSE 71; RESP 15; TEMP 36.7; O2SAT 100
== END 2023-07-31 05:40 | disposition home or self-care (01) ==
PROVIDERS: Emergency Medicine; Emergency Provider Physician Assistant; PCP Internal Medicine Infectious Disease
DX: J10.2 Influenza due to other identified influenza virus with gastrointestinal manifestations (principal); K52.9 Noninfective gastroenteritis and colitis, unspecified; E86.0 Dehydration; Z20.822 Contact with and (suspected) exposure to COVID-19; E11.65 Type 2 diabetes mellitus with hyperglycemia; K76.0 Fatty (change of) liver, not elsewhere classified; E28.2 Polycystic ovarian syndrome; Z79.4 Long term (current) use of insulin; Z79.84 Long term (current) use of oral hypoglycemic drugs
CPT/HCPCS: 36415; 36600; 74177; 80048; 80053; 81001; 81025; 82010; 82375; 82805; 82948; 83036; 83050; 83690; 83735; 84100; 85025; 87086; 87088; 87637; 96361; 96374; 96375; 99284; J2270; J2405; J7030; Q9967

== ENCOUNTER 2023-08-02 10:22 | Outpatient (CLI) | payer OTHER, SELFPAY ==
--- NOTE | ~2023-08-02 | XR_ITS ---
EXAMINATION: XR hand RT min 3V INDICATION: Fifth metacarpal fracture, follow-up TECHNIQUE: Three views of the right hand are obtained. COMPARISON: 07/18/2023, 07/02/2023 FINDINGS: Again seen is a comminuted intra-articular fracture at the base of the fifth metacarpal whi ch extends to the carpal metacarpal joint. Only minimal calcified callus is seen at the fracture site . Alignment is nearly anatomic. No additional fracture is identified. IMPRESSION: 1. Comminuted intra-articular fracture at the base of the fifth metacarpal with minimal calcified amelie lara formation. Reviewed, dictated and finalized at location [facility] IMPRESSION: 1. Comminuted intra-articular fracture at the base of the fifth metacarpal with minimal calcified callus formation.
== END 2023-08-02 10:23 | disposition home or self-care (01) ==
PROVIDERS: PCP Internal Medicine Infectious Disease; Visit Provider Physician Assistant Surgical
DX: S62.316A Displaced fracture of base of fifth metacarpal bone, right hand, initial encounter for closed fracture (principal); X58.XXXA Exposure to other specified factors, initial encounter
CPT/HCPCS: 73130

== ENCOUNTER 2023-08-17 15:02 | Emergency (ER) | payer OTHER, SELFPAY ==
--- NOTE | 2023-08-17 15:07 | ED.NAVMDI ---
HPI - Nausea/Vomiting/Diarrhea General Chief complaint: Nausea/Vomiting/Diarrhea Stated complaint: Diarrhea Time Seen by Provider: 08/17/23 15:07 Source: patient Mode of arrival: ambulatory Limitations: no limitations History of Present Illness HPI Narrative: Elise is a 27-year-old female patient presenting to the clinic today with complaints of diarrhea. She reports she was at work today and had to have couple episodes of diarrhea and they sent her home. Patient reports that her blood sugar has been high because she for got her medication on a recent trip. States that her blood sugar was 350 yesterday. This morning it was 200. Related Data Home Medications Medication Instructions Recorded Confirmed blood-glucose meter (OneTouch 11/01/22 08/17/23 Verio Reflect Meter) lancets 30 gauge (OneTouch Delica 11/01/22 07/04/23 Plus Lancet) etonogestrel 68 mg subdermal 1 implant subdermal ONCE 01/05/23 08/17/23 implant (Nexplanon) Allergies Allergy/AdvReac Type Severity Reaction Status Date / Time No Known Allergies Allergy Verified 08/17/23 15:32 Review of Systems Review of Systems: Pertinent positives per HPI. Patient denies any fever, chills, rash, headache, visual changes, dizziness, cough, runny nose, sore throat, shortness of breath, chest pain, palpitations, nausea, vomiting, diarrhea, constipation, abdominal pain, or any urinary issues. [facility] Past Medical History Medical History Fatty liver Herpes PCOS (polycystic ovarian syndrome) Stomach problems possible gastritis Type 2 diabetes mellitus Surgical History Surgical History No significant past surgical history Family History Family History Grandparent Cancer spread everywhere, unknown cause Father Cerebrovascular accident Mother Hypertension Thyroid disorder Arthritis Social History Social History Smoking status: Never smoker Alcohol intake: current Alcohol use details: occasionally Substance use: current Substance use type: marijuana Do You Feel Safe in your Home?: Yes Lack of Transportation: No Lack of Food: Never True Current Housing: I Have Housing Concerned About Future Housing: No Difficulty Paying Gas/Electric Bills: No Difficulty Paying for Meds: No Currently Unemployed: No Education: High School Diploma/GED Difficulty w/ Childcare or Family Care: No Living arrangements: with family Comments At the time of my signature, I reviewed and agree with the nursing past medical, surgical, social, and family history. There is no relevant family history pertinent to the patient complaint. Exam Narrative: General: Well-developed, well nourished, in no apparent distress. Head: Normocephalic, atraumatic. Cardio: Regular rate and rhythm, s1 and s2 normal, no murmur appreciated. Resp: Clear to auscultation bilaterally, no rhonchi, rales, wheezing or rubs. Abdomen: Soft, pliable, bowel sounds present in all quadrants, generalized tender to palpation, no organomegly, no CVAT tenderness. Course Course Emergency Course: Portions of this record may have been created with voice recognition software. Level of Care: Express Care Visit Vital Signs Vital signs: Vital signs reviewed MDM - Nausea/Vomiting/Diarrhea MDM Narrative Medical decision making narrative: At the time of visit patient is resting comfortably on the exam table. Patient appears to be nontoxic. Labs: Urinalysis shows 1+ ketone, 2+ protein, 2+ blood, and 2+ glucose. We will send urine for culture. Plan: I suspect patient has acute diarrhea. Discuss symptoms of DKA-and if patient develops the symptoms she needs to go to the emergency room. Supportive measures were discussed wi
[2023-08-17 15:12] VITALS: BP 122/70; PULSE 82; RESP 16; TEMP 36.6; O2SAT 100
== END 2023-08-17 16:00 | disposition home or self-care (01) ==
PROVIDERS: Emergency Provider Nurse Practitioner Family; PCP Internal Medicine Infectious Disease
DX: R19.7 Diarrhea, unspecified (principal); K76.0 Fatty (change of) liver, not elsewhere classified; E28.2 Polycystic ovarian syndrome; E11.9 Type 2 diabetes mellitus without complications
CPT/HCPCS: 81003; 87086; 99211; G0463

== ENCOUNTER 2023-08-18 14:51 | Emergency (ER) | payer OTHER, SELFPAY ==
--- NOTE | ~2023-08-18 | CT_ITS ---
EXAMINATION: CT abdomen pelvis w con DATE: 08/18/2023 17:17 INDICATION: flank pain TECHNIQUE: Computed tomography (CT) of the abdomen and pelvis was performed with 100 mL Omnipaque-350 intravenous contrast. Automated exposure control and iterative reconstruction technique were employe d. The dose-length product was 441.47 mGy-cm. COMPARISON: 07/31/2013. FINDINGS: Lower thorax: Unremarkable Liver: Diffuse fatty infiltration. Enlarged. Biliary/Gallbladder: Gallbladder is normal. No bile duct dilation. Pancreas: No mass or duct dilation. Spleen: Normal. Adrenals:No mass. Kidneys: No suspicious mass, obstructing stone, or hydronephrosis. GI tract: Moderate distal esophageal and gastric wall edema. No small or large bowel dilation. Normal appendix. Mesentery/Peritoneum: No ascites, mass, or free air. Retroperitoneum: No mass. Pelvis: Pelvic organs are within normal limits. Soft Tissues: Soft tissues and body wall unremarkable. Bones: No acute osseous finding. IMPRESSION: Moderate esophagitis/gastritis. Hepatomegaly with steatosis. Reviewed, dictated and finalized at location [facility]
[2023-08-18 14:56] VITALS: BP 143/68; PULSE 98; RESP 16; TEMP 36.6; O2SAT 99
[2023-08-18 16:05] LABS: Basophils Absolute Auto 0.1 K/mm3 (0.0-0.1); Basophils Percent Auto 0.4 % (0.2-1.2); Eosinophils Absolute Auto 0.1 K/mm3 (0-0.3); Eosinophils Percent Auto 0.8 % (0-4.4); Hematocrit 43.4 % (37.0-47.0); Hemoglobin 14.7 g/dL (12.0-15.0); Immature Granulocyte Absolute 0.06 K/mm3 (0.00-0.031); Immature Granulocyte Percent A 0.5 % (0-0.5); Lymphocytes Absolute Auto 3.32 K/mm3 (0.9-3.2); Lymphocytes Percent Auto 25.1 % (18.3-44.2); Mean Corpuscular HGB Conc 33.9 g/dl (32-36); Mean Corpuscular Hemoglobin 29.9 pg (26-34); Mean Corpuscular Volume 88.4 fl (80-100); Monocytes Absolute Auto 0.9 K/mm3 (0.1-0.6); Neutrophils Absolute Auto 8.8 K/mm3 (1.3-6.7); Neutrophils Percent Auto 66.2 % (45.5-73.1); Platelet Count Result 167 k/mm3 (150-375); Red Blood Count 4.91 M/mm3 (4.2-5.4); Red Cell Distribution Width 12.8 % (11.5-14.5); White Blood Count 13.2 K/mm3 (4.5-10.0)
[2023-08-18 16:09] LABS: Appearance Urine Cloudy (Clear); Bacteria Urine 1+ /hpf; Bilirubin Urine Negative (Negative); Blood Urine 3+ (Negative); Color Urine Dark Yellow (Yellow); Glucose Urine UA 2+ mg/dL (Negative); Ketones Urine 1+ mg/dL (Negative); Leukocyte Esterase Ur Negative LEU/UL (Negative); Nitrate Urine Negative (Negative); Protein Urine 3+ mg/dL (Negative); RBC Urine 21-50 /hpf (0-2); Specific Grav Ur 1.026 (1.001-1.035); Squamous Epithelial Cell Urine Few /hpf (Few); WBC Urine 0-5 /hpf
[2023-08-18 16:15] LABS: Add Urine Microscopic? YES
[2023-08-18 16:17] LABS: Alanine Aminotransferase 78 U/L (6-35); Albumin Level 4.6 g/dL (3.5-5.1); Alkaline Phosphatase 84 U/L (38-126); Anion Gap 13 mmol/L (8-16); Aspartate Amino Transferase 69 U/L (14-36); Bilirubin,Total 0.9 mg/dL (0.2-1.3); Blood Urea Nitrogen 13 mg/dL (7-17); Calcium 9.3 mg/dL (8.4-10.2); Carbon Dioxide 23 mmol/L (22-30); Chloride 102 mmol/L (98-107); Estimated CRCL calculation 145 ml/min; Estimated Glomerular Filt Rate > 60; Glucose 175 mg/dL (65-110); Lipase 60 U/L (23-300); Potassium 3.9 mmol/L (3.4-5.0); Sodium 138 mmol/L (137-145)
--- NOTE | 2023-08-18 16:40 | ED.NAVMDI ---
HPI - Nausea/Vomiting/Diarrhea General Chief complaint: Nausea/Vomiting/Diarrhea Stated complaint: high glucose/diarrhea Time Seen by Provider: 08/18/23 16:02 History of Present Illness HPI Narrative: Patient is a 27-year-old female with history of type 2 diabetes, gastroparesis, chronic microscopic hematuria here with diarrhea. She states that she was recently on a trip to [place] and she returned 3 days ago. The next day she began having diarrhea. Yesterday she went to an urgent care and for she was discharged home. They advised that should she develop worsening symptoms that she should come to the emergency department for evaluation. Today she started developing vomiting as well as some diffuse abdominal cramping which radiates in her bilateral flanks. She notes that it waxes and wanes in severity, is a cramping nature and does somewhat resolved after defecating. These additional symptoms prompted her to come into the emergency department. Yesterday when she went to Urgent Care she was having some high blood sugar readings in the 300s, this is abnormal for her. Today her blood sugars were more in the 200s. She denies any dysuria but does note that her urine seems to be more concentrated than it normally is. She denies any known sick contacts, no fever, chills, cough, congestion. Of note she did recently have influenza B which she is recovering from. No vaginal bleeding or discharge. Related Data Home Medications Medication Instructions Recorded Confirmed blood-glucose meter (OneTouch 11/01/22 08/17/23 Verio Reflect Meter) lancets 30 gauge (OneTouch Delica 11/01/22 07/04/23 Plus Lancet) etonogestrel 68 mg subdermal 1 implant subdermal ONCE 01/05/23 08/17/23 implant (Nexplanon) Allergies Allergy/AdvReac Type Severity Reaction Status Date / Time No Known Allergies Allergy Verified 08/18/23 15:53 Review of Systems Review of Systems: All systems reviewed & are unremarkable except as noted in HPI and below PMFSH Past Medical History Medical History Fatty liver Herpes PCOS (polycystic ovarian syndrome) Stomach problems possible gastritis Type 2 diabetes mellitus Surgical History Surgical History No significant past surgical history Family History Family History Grandparent Cancer spread everywhere, unknown cause Father Cerebrovascular accident Mother Hypertension Thyroid disorder Arthritis Social History Social History Smoking status: Never smoker Alcohol intake: current Alcohol use details: occasionally Substance use: current Substance use type: marijuana Do You Feel Safe in your Home?: Yes Lack of Transportation: No Lack of Food: Never True Current Housing: I Have Housing Concerned About Future Housing: No Difficulty Paying Gas/Electric Bills: No Difficulty Paying for Meds: No Currently Unemployed: No Education: High School Diploma/GED Difficulty w/ Childcare or Family Care: No Living arrangements: with family Exam Narrative: GENERAL: Well-appearing, well-nourished, and in no acute distress. HEAD: Normocephalic, atraumatic. EYES: PERRLA and EOMI. ENT: Nares clear. Mucous membranes moist. NECK: Supple. CHEST: Clear to auscultation. No respiratory distress. HEART: Regular rate and rhythm. Normal peripheral pulses. ABDOMEN: Soft, mildly tender, no rebound or guarding, nondistended. EXTREMITIES: Normal range of motion. No edema. SKIN: Warm, dry, no rash. NEURO: No focal deficits. Alert and oriented x3. PSYCH: Normal mood and affect. Course Course Emergency Course: Chart review performed. Patient here with nausea, vomiting, diarrhea, flank pain. Triage vitals normal. Bedside test negative
[2023-08-18] MEDS: ONDANSETRON INJ 4 MG/2 ML VIAL IV PUSH (17:19)
[2023-08-18] MEDS: DICYCLOMINE HCL INJ 20 MG/2 ML VIAL IM (17:19)
[2023-08-18] MEDS: LACTATED RINGERS 1,000 ML 999 ML IV CONT (17:19)
[2023-08-18 17:33] LABS: Influenza A QL RT-PCR Negative (Negative); Influenza B QL RT-PCR Negative (Negative); RSV RNA, RT-PCR Negative (Negative); SARS-CoV-2 RNA PCR Negative (Negative)
[2023-08-18 18:19] VITALS: BP 125/86; PULSE 78; RESP 16; TEMP 36.2; O2SAT 100
== END 2023-08-18 18:34 | disposition home or self-care (01) ==
PROVIDERS: Emergency Medicine; Emergency Provider Student in an Organized Health Care Education/Training Program; PCP Internal Medicine Infectious Disease
DX: R19.7 Diarrhea, unspecified (principal); R11.2 Nausea with vomiting, unspecified; R10.84 Generalized abdominal pain; Z20.822 Contact with and (suspected) exposure to COVID-19; E28.2 Polycystic ovarian syndrome; E11.43 Type 2 diabetes mellitus with diabetic autonomic (poly)neuropathy; K31.84 Gastroparesis; Z79.4 Long term (current) use of insulin; Z79.84 Long term (current) use of oral hypoglycemic drugs; K76.0 Fatty (change of) liver, not elsewhere classified; K20.90 Esophagitis, unspecified without bleeding; K29.70 Gastritis, unspecified, without bleeding
CPT/HCPCS: 36415; 74177; 80053; 81001; 81025; 83690; 85025; 87637; 96361; 96372; 96374; 99284; J0500; J2405; J7120; Q9967

== ENCOUNTER 2023-08-27 17:23 | Emergency (ER) | payer OTHER, SELFPAY ==
[2023-08-27 18:01] VITALS: BP 142/91; PULSE 96; RESP 16; TEMP 36.7; O2SAT 100
[2023-08-27 18:02] LABS: Glucose Point of Care 228 mg/dl (65-105)
--- NOTE | 2023-08-27 18:31 | ED.GENADULT ---
HPI - General Adult General Chief complaint: Unspecified Stated complaint: Hyperglycemia Time Seen by Provider: 08/27/23 18:40 Mode of arrival: ambulatory Limitations: no limitations History of Present Illness HPI narrative: 27-year-old female with history of type 2 diabetes presents concern for blood sugar check. She reports she currently does not have way to check her blood sugar because her insurance stopped covering her point of care testing on started covering and dexcom, however she does not have all the parts for the continuous monitor at this time to she cannot check her sugar. Reports today she felt gassy and bloated with stomach cramping which are symptoms of hyperglycemia. She denies other symptoms. She reports her sugars run from 180 to 350. She has been using Farxiga and fast acting insulin, she bases her insulin doses off a carb she has eaten since she cannot check her sugar MD complaint: Hyperglycemia Related Data Home Medications Medication Instructions Recorded Confirmed blood-glucose meter (OneTouch 11/01/22 08/17/23 Verio Reflect Meter) lancets 30 gauge (OneTouch Delica 11/01/22 07/04/23 Plus Lancet) etonogestrel 68 mg subdermal 1 implant subdermal ONCE 01/05/23 08/27/23 implant (Nexplanon) Allergies Allergy/AdvReac Type Severity Reaction Status Date / Time No Known Allergies Allergy Verified 08/27/23 18:44 Review of Systems Review of Systems: CONSTITUTIONAL: Denies malaise, chills, sweats, or fever. CARDIOVASCULAR: Denies chest pain, palpitations, or edema. RESPIRATORY: Denies cough or dyspnea. GASTROINTESTINAL: Denies abdominal pain, nausea, vomiting. Reports gas, diarrhea, bloating PSYCHIATRIC: Denies anxiety or depression. All systems reviewed & are unremarkable except as noted in HPI and below [facility] Past Medical History Medical History Fatty liver Herpes PCOS (polycystic ovarian syndrome) Stomach problems possible gastritis Type 2 diabetes mellitus Surgical History Surgical History No significant past surgical history Family History Family History Grandparent Cancer spread everywhere, unknown cause Father Cerebrovascular accident Mother Hypertension Thyroid disorder Arthritis Social History Social History Smoking status: Never smoker Alcohol intake: current Alcohol use details: occasionally Substance use: current Substance use type: marijuana Do You Feel Safe in your Home?: Yes Lack of Transportation: No Lack of Food: Never True Current Housing: I Have Housing Concerned About Future Housing: No Difficulty Paying Gas/Electric Bills: No Difficulty Paying for Meds: No Currently Unemployed: No Education: High School Diploma/GED Difficulty w/ Childcare or Family Care: No Living arrangements: with family Comments At time of signature, agree with nursing past medical, surgical, social and family history. There is no relevant family history pertinent to the presenting complaint Exam Narrative: GENERAL: Well-appearing, well-nourished, and in no acute distress. HEAD: Normocephalic, atraumatic. EYES: PERRLA, sclera clear, and EOMI. ENT: Nares clear. Mucous membranes moist NECK: Supple. CHEST: No respiratory distress. Clear to auscultation. No bony deformities, no asymmetry. Speaks in full sentences. HEART: Regular rate and rhythm. No murmur heard. Normal peripheral pulses. ABDOMEN: Soft, nontender, nondistended, normal active bowel sounds, no palpable masses. SKIN: Warm, dry, no visible rash. NEURO: Alert and oriented x3. No focal deficits. PSYCH: Normal mood and affect Course Course Emergency Course: Patient is aware of diagnosis, understands and agrees to treatment plan.
== END 2023-08-27 18:55 | disposition home or self-care (01) ==
PROVIDERS: Emergency Provider Nurse Practitioner; PCP Internal Medicine Infectious Disease
DX: E11.65 Type 2 diabetes mellitus with hyperglycemia (principal)
CPT/HCPCS: 82948; 99212; G0463

== ENCOUNTER 2023-09-05 09:54 | Emergency (ER) | payer OTHER, SELFPAY ==
[2023-09-05 10:10] VITALS: BP 118/72; PULSE 84; RESP 18; TEMP 36.9; O2SAT 98
--- NOTE | 2023-09-05 10:19 | ED.GENADULT ---
HPI - General Adult General Chief complaint: Headache Stated complaint: Eyes Irritation Source: patient, RN notes reviewed and old records reviewed Mode of arrival: ambulatory Limitations: no limitations History of Present Illness HPI narrative: 27 year female presents to [facility] with complaints of headache this started this a.m.. Patient states he is having slight nausea and light sensitivity. Patient took Tylenol with slight relief. Patient also complaining of left eye irritation and swelling this started today. Related Data Home Medications Medication Instructions Recorded Confirmed lancets 30 gauge (OneTouch Delica 11/01/22 09/05/23 Plus Lancet) etonogestrel 68 mg subdermal 1 implant subdermal ONCE 01/05/23 09/05/23 implant (Nexplanon) Phuc Vega U-100 Insulin 5 units subcut DAILY 09/05/23 09/05/23 blood-glucose meter,continuous 09/05/23 09/05/23 (Dexcom G7 Inspector Hairspring) blood-glucose sensor (Dexcom G7 09/05/23 09/05/23 Sensor device) Allergies Allergy/AdvReac Type Severity Reaction Status Date / Time No Known Allergies Allergy Verified 09/05/23 10:21 Review of Systems Constitutional: Constitutional: Reports no additional constitutional complaints, Denies body ache(s), Denies chills, Denies fatigue, Denies fever(s) and Reports headache(s) Eyes: Eyes: Reports no additional eye complaints, Denies blurry vision, Reports irritation, Reports itchy eyes and Reports photophobia ENT: Reports system reviewed and no additional complaints, except as documented, Denies vertigo, Denies dizziness, Denies ear discharge, Denies otalgia, Denies facial pain, Denies headache(s), Denies nasal congestion, Denies nasal discharge, Denies sinus pain, Denies sinus pressure and Denies sore throat Cardiovascular: Cardiovascular: Reports no additional cardiovascular complaints, Denies chest pain, Denies chest pain at rest, Denies rapid heart rate and Denies dyspnea Respiratory: Respiratory: Reports no additional respiratory complaints, Denies chest congestion, Denies cough, Denies pain on inspiration, Denies pain with cough and Denies dyspnea Gastrointestinal: Gastrointestinal: Denies abdominal pain, Denies diarrhea, Denies nausea and Denies vomiting Integumentary/Breasts: Skin/Breast: Denies rash Neurologic: Reports system reviewed and no additional complaints, except as documented, Denies vertigo, Denies dizziness and Reports headache(s) Endocrine: Endocrine: Denies fatigue PMFSH Past Medical History Medical History Fatty liver Herpes PCOS (polycystic ovarian syndrome) Stomach problems possible gastritis Type 2 diabetes mellitus Surgical History Surgical History No significant past surgical history Family History Family History Grandparent Cancer spread everywhere, unknown cause Father Cerebrovascular accident Mother Hypertension Thyroid disorder Arthritis Social History Social History Smoking status: Never smoker Alcohol intake: current Alcohol use details: occasionally Substance use: current Substance use type: marijuana Do You Feel Safe in your Home?: Yes Lack of Transportation: No Lack of Food: Never True Current Housing: I Have Housing Concerned About Future Housing: No Difficulty Paying Gas/Electric Bills: No Difficulty Paying for Meds: No Currently Unemployed: No Education: High School Diploma/GED Difficulty w/ Childcare or Family Care: No Living arrangements: with family Comments At the time of my signature, I reviewed and agree with the nursing past medical, surgical, social, and family history. There is no relevant family history pertinent to the patient complaint. Exam Const: General: cooperative, healthy appear
[2023-09-05] MEDS: ONDANSETRON HCL ODT 4 MG TABLET PO (10:28)
[2023-09-05] MEDS: KETOROLAC (*BKC) 60 MG/2 ML VIAL IM (10:31)
== END 2023-09-05 11:02 | disposition home or self-care (01) ==
PROVIDERS: Emergency Provider Registered Nurse; PCP Internal Medicine Infectious Disease
DX: H51.9 Unspecified disorder of binocular movement (principal); H10.32 Unspecified acute conjunctivitis, left eye; K76.0 Fatty (change of) liver, not elsewhere classified; E28.2 Polycystic ovarian syndrome; E11.9 Type 2 diabetes mellitus without complications
CPT/HCPCS: 96372; 99213; A9270; G0463; J1885

== ENCOUNTER 2023-09-17 18:21 | Emergency (ER) | payer OTHER, SELFPAY ==
--- NOTE | 2023-09-17 18:24 | ED.NAVMDI ---
HPI - Nausea/Vomiting/Diarrhea General Chief complaint: Nausea/Vomiting/Diarrhea Stated complaint: diarrhea Time Seen by Provider: 09/17/23 18:23 Source: patient Mode of arrival: ambulatory Limitations: no limitations History of Present Illness HPI Narrative: Elise is a 27-year-old female patient presenting to the clinic today with complaints of diarrhea that started around 3:00 a.m. this morning. She reports she has had about 6 episodes of diarrhea today. Did have to call off work today so she is needing a work note. Denies any abdominal pain it unless she is about rate have diarrhea. She is diabetic and states that they have been changing her diabetic medications around and she thinks this is what is causing her diarrhea. She denies any fever, chills, body aches, urinary symptoms. Related Data Home Medications Medication Instructions Recorded Confirmed lancets 30 gauge (OneTouch Delica 11/01/22 09/17/23 Plus Lancet) etonogestrel 68 mg subdermal 1 implant subdermal ONCE 01/05/23 09/17/23 implant (Nexplanon) blood-glucose meter,continuous 09/05/23 09/17/23 (Dexcom G7 Cottrell Blower) insulin glargine 100 unit/mL (3 40 unit subcut QPM 09/12/23 09/17/23 mL) subcutaneous pen (Lantus Solostar U-100 Insulin) Allergies Allergy/AdvReac Type Severity Reaction Status Date / Time No Known Allergies Allergy Verified 09/17/23 18:25 Review of Systems Review of Systems: Pertinent positives per HPI. Patient denies any fever, chills, rash, headache, visual changes, dizziness, cough, runny nose, sore throat, shortness of breath, chest pain, palpitations, nausea, vomiting, constipation, abdominal pain, or any urinary issues. [facility] Past Medical History Medical History Fatty liver Herpes PCOS (polycystic ovarian syndrome) Stomach problems possible gastritis Type 2 diabetes mellitus Surgical History Surgical History No significant past surgical history Family History Family History Grandparent Cancer spread everywhere, unknown cause Father Cerebrovascular accident Mother Hypertension Thyroid disorder Arthritis Social History Social History Smoking status: Never smoker Alcohol intake: current Alcohol use details: occasionally Substance use: current Substance use type: marijuana Do You Feel Safe in your Home?: Yes Lack of Transportation: No Lack of Food: Never True Current Housing: I Have Housing Concerned About Future Housing: No Difficulty Paying Gas/Electric Bills: No Difficulty Paying for Meds: No Currently Unemployed: No Education: High School Diploma/GED Difficulty w/ Childcare or Family Care: No Living arrangements: with family Comments At the time of my signature, I reviewed and agree with the nursing past medical, surgical, social, and family history. There is no relevant family history pertinent to the patient complaint. Exam Narrative: General: Well-developed, well nourished, in no apparent distress. Head: Normocephalic, atraumatic. Cardio: Regular rate and rhythm, s1 and s2 normal, no murmur appreciated. Resp: Clear to auscultation bilaterally, no rhonchi, rales, wheezing or rubs. Abdomen: Soft, pliable, bowel sounds present in all quadrants, non-tender to palpation, no organomegly, no CVAT tenderness. Course Course Emergency Course: Portions of this record may have been created with voice recognition software. Level of Care: Express Care Visit Vital Signs Vital signs: Vital signs reviewed MDM - Nausea/Vomiting/Diarrhea MDM Narrative Medical decision making narrative: At the time of visit patient is resting comfortably on the exam table. Patient appears to be nontoxic. Plan: I suspect patient has acut
[2023-09-17 18:30] VITALS: BP 129/68; PULSE 87; RESP 16; TEMP 36.9; O2SAT 99
== END 2023-09-17 18:37 | disposition home or self-care (01) ==
PROVIDERS: Emergency Provider Nurse Practitioner Family; PCP Internal Medicine Infectious Disease
DX: R19.7 Diarrhea, unspecified (principal); F12.90 Cannabis use, unspecified, uncomplicated; K76.0 Fatty (change of) liver, not elsewhere classified; E28.2 Polycystic ovarian syndrome; E11.9 Type 2 diabetes mellitus without complications; Z79.4 Long term (current) use of insulin
CPT/HCPCS: 99211; G0463

== ENCOUNTER 2023-09-26 10:11 | Emergency (ER) | payer OTHER, SELFPAY ==
--- NOTE | 2023-09-26 10:20 | ED.FEMALEGU ---
HPI - Female Genitourinary General Chief complaint: Urogenital-Female Stated complaint: urinary issue Time Seen by Provider: 09/26/23 10:20 Source: patient Mode of arrival: ambulatory Limitations: no limitations History of Present Illness HPI Narrative: Elise is a 27-year-old female patient presenting to the clinic today with complaints discharge and feeling as though her vagina is warm. She denies any urinary issues. Patient has Nexplanon-and her menses has ceased. Did notice a clump of mucus discharge come from the vagina today. States that their has been a alessandro odor. Related Data Home Medications Medication Instructions Recorded Confirmed lancets 30 gauge (OneTouch Delica 11/01/22 09/26/23 Plus Lancet) etonogestrel 68 mg subdermal 1 implant subdermal ONCE 01/05/23 09/26/23 implant (Nexplanon) blood-glucose meter,continuous 09/05/23 09/26/23 (Dexcom G7 Accounting Technician) insulin glargine 100 unit/mL (3 40 unit subcut QPM 09/12/23 09/26/23 mL) subcutaneous pen (Lantus Solostar U-100 Insulin) Allergies Allergy/AdvReac Type Severity Reaction Status Date / Time No Known Allergies Allergy Verified 09/26/23 10:19 Review of Systems Review of Systems: Pertinent positives per HPI. Patient denies any fever, chills, rash, headache, visual changes, dizziness, cough, runny nose, sore throat, shortness of breath, chest pain, palpitations, nausea, vomiting, diarrhea, constipation, abdominal pain, or any urinary issues. [facility] Past Medical History Medical History Fatty liver Herpes PCOS (polycystic ovarian syndrome) Stomach problems possible gastritis Type 2 diabetes mellitus Surgical History Surgical History No significant past surgical history Family History Family History Grandparent Cancer spread everywhere, unknown cause Father Cerebrovascular accident Mother Hypertension Thyroid disorder Arthritis Social History Social History Smoking status: Never smoker Alcohol intake: current Alcohol use details: occasionally Substance use: current Substance use type: marijuana Do You Feel Safe in your Home?: Yes Lack of Transportation: No Lack of Food: Never True Current Housing: I Have Housing Concerned About Future Housing: No Difficulty Paying Gas/Electric Bills: No Difficulty Paying for Meds: No Currently Unemployed: No Education: High School Diploma/GED Difficulty w/ Childcare or Family Care: No Living arrangements: with family Comments At the time of my signature, I reviewed and agree with the nursing past medical, surgical, social, and family history. There is no relevant family history pertinent to the patient complaint. Exam Narrative: General: Well-developed, well nourished, in no apparent distress Head: Normocephalic, atraumatic. Cardio: Regular rate and rhythm, s1 and s2 normal, no murmur appreciated. Resp: Clear to auscultation bilaterally, no rhonchi, rales, wheezing or rubs. Abdomen: Soft, pliable, bowel sounds present in all quadrants, non-tender to palpation, no CVAT tenderness. : Pelvic exam performed with (Ekta CALI) at bedside. Verbal consent obtained from patient. Normal external female genitalia without lesions or masses, Urinary meatus: patent without discharge, Vagina: No lesions, masses, or discharge, Cervix: pink without mass, lesions,thick clear discharge from cervical os, no CMT Adnexa: without palpable mass or tenderness. Course Course Emergency Course: Portions of this record may have been created with voice recognition software. Level of Care: Express Care Visit Vital Signs Vital signs: Vital signs reviewed MDM - Female Genitourinary MDM Narrative Medical decision
[2023-09-26 20:28] LABS: Trichomonas Vag PCR NOT DETECTED (NOT DETECTE)
[2023-09-26 23:42] LABS: Chlamydia trachomatis NOT DETECTED (NOT DETECTE); Neisseria gonorrhoeae PCR NOT DETECTED (NOT DETECTE)
[2023-09-29 00:30] LABS: Bacterial Vaginosis Negative (Negative)
== END 2023-09-26 11:08 | disposition home or self-care (01) ==
PROVIDERS: Emergency Provider Nurse Practitioner Family; PCP Internal Medicine Infectious Disease
DX: N89.8 Other specified noninflammatory disorders of vagina (principal); K76.0 Fatty (change of) liver, not elsewhere classified; E28.2 Polycystic ovarian syndrome; E11.9 Type 2 diabetes mellitus without complications; Z79.4 Long term (current) use of insulin
CPT/HCPCS: 81003; 81513; 87070; 87086; 87491; 87591; 87661; 99213; G0463

== ENCOUNTER 2023-10-01 18:06 | Emergency (ER) | payer OTHER, SELFPAY ==
--- NOTE | 2023-10-01 18:11 | ED.GENADULT ---
HPI - General Adult General Chief complaint: Nausea/Vomiting/Diarrhea Stated complaint: Nausea Source: patient, RN notes reviewed and old records reviewed Mode of arrival: ambulatory Limitations: no limitations History of Present Illness HPI narrative: 27-year-old female presents to [facility] with complaints nausea and vomiting x1 that started this a.m., patient states has also been having hard time having a bowel movement states takes a long time and is having constant pressure. Patient also complaining of abdominal pain. Patient states has taken Zofran and Hyoscyamine without relief. Related Data Home Medications Medication Instructions Recorded Confirmed lancets 30 gauge (OneTouch Delica 11/01/22 09/26/23 Plus Lancet) etonogestrel 68 mg subdermal 1 implant subdermal ONCE 01/05/23 10/01/23 implant (Nexplanon) blood-glucose meter,continuous 09/05/23 09/26/23 (Dexcom G7 Health Promotion Specialist) insulin glargine 100 unit/mL (3 40 unit subcut QPM 09/12/23 10/01/23 mL) subcutaneous pen (Lantus Solostar U-100 Insulin) Allergies Allergy/AdvReac Type Severity Reaction Status Date / Time No Known Allergies Allergy Verified 10/01/23 18:13 Review of Systems Constitutional: Constitutional: Reports no additional constitutional complaints, Denies body ache(s), Denies chills, Denies fatigue, Denies fever(s) and Denies headache(s) Eyes: Eyes: Reports no additional eye complaints and Denies blurry vision ENT: Reports system reviewed and no additional complaints, except as documented, Denies vertigo, Denies dizziness, Denies ear discharge, Denies otalgia, Denies facial pain, Denies headache(s), Denies nasal congestion, Denies nasal discharge, Denies sinus pain, Denies sinus pressure and Denies sore throat Cardiovascular: Cardiovascular: Reports no additional cardiovascular complaints, Denies chest pain, Denies chest pain at rest, Denies rapid heart rate and Denies dyspnea Respiratory: Respiratory: Reports no additional respiratory complaints, Denies chest congestion, Denies cough, Denies pain on inspiration, Denies pain with cough and Denies dyspnea Gastrointestinal: Gastrointestinal: Reports abdominal pain, Reports bloating, Reports tenesmus, Reports constipation, Reports excessive flatus, Denies diarrhea, Reports nausea and Reports vomiting Integumentary/Breasts: Skin/Breast: Denies rash Neurologic: Reports system reviewed and no additional complaints, except as documented, Denies vertigo, Denies dizziness and Denies headache(s) Endocrine: Endocrine: Denies fatigue [facility] Past Medical History Medical History Fatty liver Herpes PCOS (polycystic ovarian syndrome) Stomach problems possible gastritis Type 2 diabetes mellitus Surgical History Surgical History No significant past surgical history Family History Family History Grandparent Cancer spread everywhere, unknown cause Father Cerebrovascular accident Mother Hypertension Thyroid disorder Arthritis Social History Social History Smoking status: Never smoker Alcohol intake: current Alcohol use details: occasionally Substance use: current Substance use type: marijuana Do You Feel Safe in your Home?: Yes Lack of Transportation: No Lack of Food: Never True Current Housing: I Have Housing Concerned About Future Housing: No Difficulty Paying Gas/Electric Bills: No Difficulty Paying for Meds: No Currently Unemployed: No Education: High School Diploma/GED Difficulty w/ Childcare or Family Care: No Living arrangements: with family Comments At the time of my signature, I reviewed and agree with the nursing past medical, surgical, social, and family history. There is no relevant family history pert
[2023-10-01 18:12] VITALS: BP 117/80; PULSE 95; RESP 16; TEMP 36.1; O2SAT 100
== END 2023-10-01 18:35 | disposition short-term general hospital (02) ==
PROVIDERS: Emergency Provider Registered Nurse
DX: R10.31 Right lower quadrant pain (principal); R11.2 Nausea with vomiting, unspecified; K76.0 Fatty (change of) liver, not elsewhere classified; E28.2 Polycystic ovarian syndrome; E11.9 Type 2 diabetes mellitus without complications; Z79.4 Long term (current) use of insulin
CPT/HCPCS: 99212; G0463

== ENCOUNTER 2023-10-03 09:40 | Emergency (ER) | payer OTHER, SELFPAY ==
[2023-10-03 09:54] VITALS: BP 150/89; PULSE 96; RESP 16; TEMP 36.6; O2SAT 100
--- NOTE | 2023-10-03 10:14 | ED.GENADULT ---
HPI - General Adult General Chief complaint: Unspecified Stated complaint: Pt states she needs Work Note Time Seen by Provider: 10/03/23 10:14 Source: patient Mode of arrival: ambulatory Limitations: no limitations History of Present Illness HPI narrative: 27 yo F here for work note. hx of gastritis. her GI doctor recently gave her zofran and states belching and gas pain. Has not tried any OTC meds. called GI today to be seen and unable to get her in. missed work because of belching and needs note. No ABD pain at this time. eating and drinking normally. all systems reviewed and negative except as noted above. Related Data Home Medications Medication Instructions Recorded Confirmed lancets 30 gauge (OneTouch Delica 11/01/22 10/03/23 Plus Lancet) etonogestrel 68 mg subdermal 1 implant subdermal ONCE 01/05/23 10/03/23 implant (Nexplanon) blood-glucose meter,continuous 09/05/23 10/03/23 (Dexcom G7 Medical Anthropology Director) insulin glargine 100 unit/mL (3 40 unit subcut QPM 09/12/23 10/03/23 mL) subcutaneous pen (Lantus Solostar U-100 Insulin) Allergies Allergy/AdvReac Type Severity Reaction Status Date / Time No Known Allergies Allergy Verified 10/01/23 18:13 Review of Systems Review of Systems: CONSTITUTIONAL: Denies fever, chills, or sweats. EYES: Denies visual changes, redness, or discharge. ENT: Denies rhinorrhea, congestion, sore throat, or otalgia. CARDIOVASCULAR: Denies chest pain, palpitations, or edema. RESPIRATORY: Denies cough or dyspnea. GASTROINTESTINAL: Denies abdominal pain, nausea, vomiting, or diarrhea. Reports belching and gas pain. GENITOURINARY: Denies dysuria or hematuria. SKIN: Denies rash or itching. MUSCULOSKELETAL: Denies back pain, joint pain, or myalgia. NEUROLOGIC: Denies headache, numbness, or weakness. PSYCHIATRIC: Denies anxiety or depression. All other systems reviewed are negative, except as documented in HPI. [facility] Past Medical History Medical History Fatty liver Herpes PCOS (polycystic ovarian syndrome) Stomach problems possible gastritis Type 2 diabetes mellitus Surgical History Surgical History No significant past surgical history Family History Family History Grandparent Cancer spread everywhere, unknown cause Father Cerebrovascular accident Mother Hypertension Thyroid disorder Arthritis Social History Social History Smoking status: Never smoker Alcohol intake: current Alcohol use details: occasionally Substance use: current Substance use type: marijuana Do You Feel Safe in your Home?: Yes Lack of Transportation: No Lack of Food: Never True Current Housing: I Have Housing Concerned About Future Housing: No Difficulty Paying Gas/Electric Bills: No Difficulty Paying for Meds: No Currently Unemployed: No Education: High School Diploma/GED Difficulty w/ Childcare or Family Care: No Living arrangements: with family Comments At time of signature, agree with nursing past medical, surgical, social and family history. There is no relevant family history pertinent to the presenting complaint. Exam Narrative: GENERAL: This is a well-nourished, well-developed patient, in no apparent distress. HEAD: normocephalic, atraumatic. EYES: PERRL. Sclera clear/white. Vision is grossly intact. EARS: External ears normal NOSE: External nose normal NECK: Neck supple, non-tender without lymphadenopathy, masses or thyromegaly. CARDIOVASCULAR: Regular rate and rhythm without murmurs, gallops, or rubs. RESPIRATORY: Clear to auscultation. Breath sounds equal bilaterally. No wheezes, rales, or rhonchi. GASTROINTESTINAL: Abdomen soft, non-tender, nondistended. Bowel sounds are active. No hepato-splenom
== END 2023-10-03 10:32 | disposition home or self-care (01) ==
PROVIDERS: Emergency Provider Nurse Practitioner Family; PCP Internal Medicine Infectious Disease
DX: R14.2 Eructation (principal); K76.0 Fatty (change of) liver, not elsewhere classified; E28.2 Polycystic ovarian syndrome; E11.9 Type 2 diabetes mellitus without complications; Z79.4 Long term (current) use of insulin
CPT/HCPCS: 99213; G0463

== ENCOUNTER 2023-10-10 17:25 | Emergency (ER) | payer OTHER, SELFPAY ==
--- NOTE | ~2023-10-10 | CT_ITS ---
EXAMINATION: CT abdomen pelvis w con DATE: 10/10/2023 18:17 INDICATION: Constipation TECHNIQUE: Computed tomography (CT) of the abdomen and pelvis was performed with 100 mL Omnipaque-350 intravenous contrast. Automated exposure control and iterative reconstruction technique were employe d. The dose-length product was 451.59 mGy-cm. COMPARISON: 08/18/2023. FINDINGS: Lower thorax: Unremarkable Liver: Mild diffuse fatty infiltration Biliary/Gallbladder: Gallbladder is normal. No bile duct dilation. Pancreas: No mass or duct dilation. Spleen: Normal. Adrenals:No mass. Kidneys: No suspicious mass, obstructing stone, or hydronephrosis. GI tract: Mild distal esophageal and antral wall edema. No small or large bowel dilation. Minimal vol ume of fecal material. Colon is partially fluid-filled. Normal appendix. Scattered diverticuli withou t diverticulitis. Mesentery/Peritoneum: No ascites, mass, or free air. Retroperitoneum: No mass. Pelvis: Empty urinary bladder. Normal uterus and ovaries. Soft Tissues: Soft tissues and body wall unremarkable. Bones: No acute osseous finding. IMPRESSION: Mild esophagitis and antral gastritis. Hepatic steatosis. Minimal volume of colonic feces. Fluid in the colon as can be seen with diarrheal illness. Reviewed, dictated and finalized at location K. IMPRESSION: Mild esophagitis and antral gastritis. Hepatic steatosis. Minimal volume of colonic feces. Fluid in the colon as can be seen with diarrhe al illness.
[2023-10-10 17:34] VITALS: BP 122/84; PULSE 93; RESP 18; TEMP 36.3; O2SAT 100
[2023-10-10 17:51] LABS: Basophils Percent Auto 0.2 % (0.2-1.2); Eosinophils Absolute Auto 0.1 K/mm3 (0-0.3); Eosinophils Percent Auto 1.5 % (0-4.4); Hematocrit 45.2 % (37.0-47.0); Immature Granulocyte Absolute 0.02 K/mm3 (0.00-0.031); Immature Granulocyte Percent A 0.2 % (0-0.5); Lymphocytes Absolute Auto 2.99 K/mm3 (0.9-3.2); Lymphocytes Percent Auto 33.5 % (18.3-44.2); Mean Corpuscular HGB Conc 33.2 g/dl (32-36); Mean Corpuscular Hemoglobin 29.8 pg (26-34); Mean Corpuscular Volume 89.9 fl (80-100); Mean Platelet Volume 11.7 fl (7.4-10.4); Monocytes Absolute Auto 0.7 K/mm3 (0.1-0.6); Monocytes Percent Auto 7.6 % (2.6-8.5); Neutrophils Absolute Auto 5.1 K/mm3 (1.3-6.7); Platelet Count Result 156 k/mm3 (150-375); Red Blood Count 5.03 M/mm3 (4.2-5.4); Red Cell Distribution Width 11.9 % (11.5-14.5); White Blood Count 8.9 K/mm3 (4.5-10.0)
--- NOTE | 2023-10-10 17:57 | ED.ABDPAIN ---
HPI - Abdominal Pain General Chief Complaint: Abdominal Pain Stated Complaint: abd issues Time Seen by Provider: 10/10/23 17:31 History of Present Illness HPI narrative: 27-year-old female present to the emergency department for evaluation of multiple days of constipation with worsening cramping. Patient states that she had been having some nausea and vomiting so she presented to urgent care and was started on Zofran. Patient states that this caused some constipation. Patient does have a prior history of constipation. Patient states that the constipation has worsened she has had foul-smelling burps and has been passing liquid stool but still has upper abdominal discomfort. Related Data Home Medications Medication Instructions Recorded Confirmed lancets 30 gauge (OneTouch Delica 11/01/22 10/03/23 Plus Lancet) etonogestrel 68 mg subdermal 1 implant subdermal ONCE 01/05/23 10/03/23 implant (Nexplanon) blood-glucose meter,continuous 09/05/23 10/03/23 (Dexcom G7 Engine Mechanic) insulin glargine 100 unit/mL (3 40 unit subcut QPM 09/12/23 10/03/23 mL) subcutaneous pen (Lantus Solostar U-100 Insulin) Allergies Allergy/AdvReac Type Severity Reaction Status Date / Time No Known Allergies Allergy Verified 10/10/23 17:43 Review of Systems Review of Systems: All systems reviewed & are unremarkable except as noted in HPI and below PMFSH Past Medical History Medical History Fatty liver Herpes PCOS (polycystic ovarian syndrome) Stomach problems possible gastritis Type 2 diabetes mellitus Surgical History Surgical History No significant past surgical history Family History Family History Grandparent Cancer spread everywhere, unknown cause Father Cerebrovascular accident Mother Hypertension Thyroid disorder Arthritis Social History Social History Smoking status: Never smoker Alcohol intake: current Alcohol use details: occasionally Substance use: current Substance use type: marijuana Do You Feel Safe in your Home?: Yes Lack of Transportation: No Lack of Food: Never True Current Housing: I Have Housing Concerned About Future Housing: No Difficulty Paying Gas/Electric Bills: No Difficulty Paying for Meds: No Currently Unemployed: No Education: High School Diploma/GED Difficulty w/ Childcare or Family Care: No Living arrangements: with family Exam Narrative: APPEARANCE: Well appearing, no pain, no distress, well-nourished. HEAD: normocephalic, atraumatic. EYES: PERRLA/EOMI, conjunctivae clear. NOSE: Normal no drainage EARS:TMS clear with good light reflex. THROAT: Pharynx clear, no exudate. NECK: Supple. No adenopathy, no masses. RESPIRATORY: Airway patent, respirations nonlabored. Clear to auscultation bilaterally, no rales, rhonchi, wheezing. CARDIOVASCULAR: Regular rate and rhythm without murmurs rubs or gallops. ABDOMINAL: Soft, nontender, nondistended, normal bowel sounds MUSCULOSKELETAL: Moves all extremities. Strength/ROM intact, No edema, No calf tenderness. NEURO: Alert. Cranial nerves II through XII intact. Good gait. Good coordination SKIN: Warm, dry. Normal Color Course Course Emergency Course: Patient was discharged to home Vital Signs Vital signs: Vital Signs Temperature 97.4 F L 10/10/23 17:34 Pulse Rate 93 10/10/23 17:34 Respiratory Rate 18 10/10/23 17:34 Blood Pressure 122/84 10/10/23 17:34 Pulse Oximetry 100 10/10/23 17:34 Oxygen Delivery Room Air 10/10/23 17:34 Temperature 97.4 F L 10/10/23 17:34 Pulse Rate 93 10/10/23 17:34 Respiratory Rate 18 10/10/23 17:34 Blood Pressure 122/84 10/10/23 17:34 Pulse Oximetry 100 10/10/23 17:34 Oxygen Delivery Room Air 0
[2023-10-10 18:06] LABS: Bacteria Urine 1+ /hpf; Non Pathogenic Casts 0-2; Squamous Epithelial Cell Urine Few /hpf (Few); WBC Urine 0-5 /hpf (0-3)
[2023-10-10 18:08] LABS: Estimated CRCL calculation 145 ml/min; Estimated Glomerular Filt Rate > 60
[2023-10-10 18:10] LABS: Alanine Aminotransferase 30 U/L (6-35); Albumin Level 4.6 g/dL (3.5-5.1); Alkaline Phosphatase 72 U/L (38-126); Anion Gap 8 mmol/L (4-12); Aspartate Amino Transferase 23 U/L (14-36); Bilirubin,Total 0.5 mg/dL (0.2-1.3); Blood Urea Nitrogen 14 mg/dL (7-17); Calcium 9.4 mg/dL (8.4-10.2); Carbon Dioxide 23 mmol/L (22-30); Chloride 107 mmol/L (98-107); Estimated CRCL calculation 145 ml/min; Estimated Glomerular Filt Rate > 60; Glucose 211 mg/dL (65-110); Lipase 112 U/L (23-300); Potassium 4.2 mmol/L (3.4-5.0); Sodium 138 mmol/L (137-145)
[2023-10-10 18:16] LABS: Appearance Urine Clear (Clear); pH Urine 5.5 (5.0-9.0)
[2023-10-10] MEDS: SODIUM CHLORIDE 0.9% IV 1,000 ML 999 ML IV CONT (18:16)
[2023-10-10 18:17] LABS: Bilirubin Urine Negative (Negative); Blood Urine 2+ (Negative); Glucose Urine UA 3+ mg/dL (Negative); Ketones Urine Trace mg/dL (Negative); Nitrate Urine Negative (Negative); Protein Urine Trace mg/dL (Negative); Specific Grav Ur 1.025 (1.001-1.035); Urobilinogen Urine 0.2 mg/dL (<2.0)
[2023-10-10 18:18] LABS: Leukocyte Esterase Ur Negative LEU/UL (Negative)
[2023-10-10 18:19] LABS: Add Urine Microscopic? YES; Color Urine Yellow (Yellow)
== END 2023-10-10 19:14 | disposition home or self-care (01) ==
PROVIDERS: Emergency Provider Emergency Medicine; PCP Internal Medicine Infectious Disease
DX: K29.70 Gastritis, unspecified, without bleeding (principal); R19.7 Diarrhea, unspecified; E28.2 Polycystic ovarian syndrome; E11.9 Type 2 diabetes mellitus without complications; Z79.4 Long term (current) use of insulin; K76.0 Fatty (change of) liver, not elsewhere classified
CPT/HCPCS: 36415; 74177; 80053; 81001; 81025; 83690; 85025; 96360; 99284; J7030; Q9967

== ENCOUNTER 2023-11-02 06:46 | Emergency (ER) | payer OTHER, SELFPAY ==
[2023-11-02 06:49] VITALS: BP 145/81; PULSE 83; RESP 16; TEMP 36.1; O2SAT 100
[2023-11-02 07:07] VITALS: BP 129/82; PULSE 78; RESP 15; O2SAT 100
[2023-11-02 07:09] LABS: Glucose Point of Care 341 mg/dl (65-105)
[2023-11-02 07:37] VITALS: BP 131/81; PULSE 74; RESP 23; O2SAT 98
[2023-11-02] MEDS: SODIUM CHLORIDE 0.9% IV 1,000 ML 999 ML IV CONT (07:38)
[2023-11-02 07:53] LABS: Basophils Percent Auto 0.4 % (0.2-1.2); Eosinophils Absolute Auto 0.2 K/mm3 (0-0.3); Eosinophils Percent Auto 1.4 % (0-4.4); Hemoglobin 14.7 g/dL (12.0-15.0); Immature Granulocyte Absolute 0.03 K/mm3 (0.00-0.031); Immature Granulocyte Percent A 0.3 % (0-0.5); Lymphocytes Absolute Auto 2.77 K/mm3 (0.9-3.2); Lymphocytes Percent Auto 26.7 % (18.3-44.2); Mean Corpuscular HGB Conc 33.4 g/dl (32-36); Mean Corpuscular Hemoglobin 30.3 pg (26-34); Mean Corpuscular Volume 90.7 fl (80-100); Mean Platelet Volume 12.6 fl (7.4-10.4); Monocytes Absolute Auto 0.7 K/mm3 (0.1-0.6); Monocytes Percent Auto 6.6 % (2.6-8.5); Neutrophils Absolute Auto 6.7 K/mm3 (1.3-6.7); Neutrophils Percent Auto 64.6 % (45.5-73.1); Platelet Count Result 137 k/mm3 (150-375); Red Blood Count 4.85 M/mm3 (4.2-5.4); Red Cell Distribution Width 11.7 % (11.5-14.5); White Blood Count 10.4 K/mm3 (4.5-10.0)
--- NOTE | 2023-11-02 07:58 | ED.GENADULT ---
HPI - General Adult General Chief complaint: Recheck/Abnormal Lab/Rx Stated complaint: High Blood sugar Time Seen by Provider: 11/02/23 07:20 History of Present Illness HPI narrative: Patient is a 27-year-old female who presents ER with elevated blood sugars. Her since her last night was telling her her blood sugar was greater than 300. She reports she has taken her medications as she normally would. She has not yet taken her morning medication. She does take a fast acting insulin in the mornings when she eats but she has not yet taken it. No nausea or vomiting. She did drink plenty of fluids last night. No fevers or chills or sweats. No abdominal pain. No recent changes to medication or her weight. Related Data Home Medications Medication Instructions Recorded Confirmed lancets 30 gauge (OneTouch Delica 11/01/22 10/03/23 Plus Lancet) etonogestrel 68 mg subdermal 1 implant subdermal ONCE 01/05/23 10/03/23 implant (Nexplanon) blood-glucose meter,continuous 09/05/23 10/03/23 (Dexcom G7 Oracle Hyperion Consultant) Allergies Allergy/AdvReac Type Severity Reaction Status Date / Time No Known Allergies Allergy Verified 11/02/23 07:04 Review of Systems Review of Systems: All systems reviewed & are unremarkable except as noted in HPI and below Constitutional: Constitutional: Reports no additional constitutional complaints ENT: Reports system reviewed and no additional complaints, except as documented Cardiovascular: Cardiovascular: Reports no additional cardiovascular complaints Respiratory: Respiratory: Reports no additional respiratory complaints Gastrointestinal: Gastrointestinal: Reports no additional gastrointestinal complaints [facility] Past Medical History Medical History Fatty liver Herpes PCOS (polycystic ovarian syndrome) Stomach problems possible gastritis Type 2 diabetes mellitus Surgical History Surgical History No significant past surgical history Family History Family History Grandparent Cancer spread everywhere, unknown cause Father Cerebrovascular accident Mother Hypertension Thyroid disorder Arthritis Social History Social History Smoking status: Never smoker Alcohol intake: current Alcohol use details: occasionally Substance use: current Substance use type: marijuana Do You Feel Safe in your Home?: Yes Lack of Transportation: No Lack of Food: Never True Current Housing: I Have Housing Concerned About Future Housing: No Difficulty Paying Gas/Electric Bills: No Difficulty Paying for Meds: No Currently Unemployed: No Education: High School Diploma/GED Difficulty w/ Childcare or Family Care: No Living arrangements: with family Exam Narrative: GENERAL: Well-appearing, well-nourished, and in no acute distress. HEAD: Normocephalic, atraumatic. ENT: Mucous membranes moist. NECK: Supple. CHEST: Clear to auscultation. No respiratory distress. HEART: Regular rate and rhythm. Normal peripheral pulses. EXTREMITIES: Normal range of motion. No edema. SKIN: Warm, dry, no rash. NEURO: Alert and oriented x3. PSYCH: Normal mood and affect. Course Course Emergency Course: Patient resting comfortably. Hydrated with 1 L IV fluid. CBC normal. Repeat Accu-Chek 311. I am not concerned for DKA. Patient has insulin home and knows how to use a sliding scale. Vital Signs Vital signs: Vital Signs Temperature 96.9 F L 11/02/23 06:49 Pulse Rate 83 11/02/23 06:49 Respiratory Rate 16 11/02/23 06:49 Blood Pressure 145/81 H 11/02/23 06:49 Pulse Oximetry 100 11/02/23 06:49 Oxygen Delivery Room Air 11/02/23 06:49 Temperature 96.9 F L 11/02/23 06:49 Pulse Rate 77 11/02/23 08:22 Respiratory Rate 22 H 11/02/23 08:22 Blood Pressure 118/70 11/02/23 08:22 Pulse Oximetry 99 11/02/23 08:22 Oxygen Delivery Room Air 11/02/23 06:49 Medical Decision Making Vital Signs Vital Signs: Vital Signs Temperature 96.9 F L 11/02/23 06:49 Pulse Rate 83 11/02/23 06:49 Respiratory Rate 16 11/02/23 06:49 Blood Pressure 145/81 H 11/02/23 06:49 Pulse Oximetry 100 11/02/23 06:49 Oxygen Delivery Room Air 11/02/23 06:49 Temperature 96.9 F L 11/02/23 06:49 Pulse Rate 77 04/19/24 08:22 Respiratory Rate 22 H 11/02/23 08:22 Blood Pressure 118/70 11/02/23 08:22 Pulse Oximetry 99 11/02/23 08:22 Oxygen Delivery Room Air 11/02/23 06:49 Lab Data 11/02/23 07:43 11/02/23 07:43 Labs: Lab Results 11/02/23 11/02/23 Range/Units 07:02 07:43 WBC 10.4 H (4.5-10.0) K/mm3 RBC 4.85 (4.2-5.4) M/mm3 Hgb 14.7 (12.0-15.0) g/dL Hct 44.0 (37.0-47.0) % MCV 90.7 (80-100) fl MCH 30.3 (26-34) pg MCHC 33.4 (32-36) g/dl RDW 11.7 (11.5-14.5) % Plt Count 137 L (150-375) k/mm3 MPV 12.6 H (7.4-10.4) fl Immature Gran % (Auto) 0.3 (0-0.5) % Neut % (Auto) 64.6 (45.5-73.1) % Lymph % (Auto) 26.7 (18.3-44.2) % Dale % (Auto) 6.6 (2.6-8.5) % Eos % (Auto) 1.4 (0-4.4) % Baso % (Auto) 0.4 (0.2-1.2) % Lymph # (Auto) 2.77 (0.9-3.2) K/mm3 Dale # (Auto) 0.7 H (0.1-0.6) K/mm3 Eos # (Auto) 0.2 (0-0.3) K/mm3 Baso # (Auto) 0.0 (0.0-0.1) K/mm3 Abs Immat Gran (auto) 0.03 (0.00-0.031) K/mm3 Absolute Neuts (auto) 6.7 (1.3-6.7) K/mm3 Absolute Nucleated RBC 0.000 (0.0-0.012) K/mm3 Nucleated RBC % 0.0 (0.0-0.2) % Sodium 139 (137-145) mmol/L Potassium 4.2 (3.4-5.0) mmol/L Chloride 108 H (98-107) mmol/L Carbon Dioxide 20 L (22-30) mmol/L Anion Gap 11 (4-12) mmol/L BUN 15 (7-17) mg/dL Creatinine 0.50 L (0.7-1.0) mg/dL Estim Creat Clear Calc 145 ml/min Estimated GFR > 60 (59 - ) Glucose 315 H (65-110) mg/dL POC Capillary Glucose 341 H (65-105) mg/dl Calcium 9.2 (8.4-10.2) mg/dL Total Bilirubin 0.5 (0.2-1.3) mg/dL AST 23 (14-36) U/L ALT 21 (6-35) U/L Alkaline Phosphatase 99 (38-126) U/L Total Protein 8.0 (6.3-8.2) g/dL Albumin 4.6 (3.5-5.1) g/dL UCG Bedside Result Negative Reference Range: Negative Discharge Plan Discharge Clinical Impression: Acute hyperglycemia Patient Disposition: Home, Self-Care Condition: Stable Instructions: Diabetic Hyperglycemia (ED) Additional Instructions: Return to the ER if you have fever over 101F, you cannot keep down food/water, you lose consciousness, or you have other concerns. Prescriptions: No Action (DME) lancets [OneTouch Delica Plus Lancet] 30 gauge misc MISCELLANEOUS Nexplanon 68 mg Implant 1 implant SUBDERMAL ONCE Rx Instructions: as a single dose (DME) Dexcom G7 Oracle Hyperion Consultant Misc MISCELLANEOUS famotidine [Pepcid] 20 mg tablet 20 mg PO BID 30 Days Qty: 60 0RF simethicone 125 mg capsule 125 mg PO QID PRN (Reason: gas pain/bloating, belching) Qty: 30 0RF (DME) lancets Misc See Rx Instructions .Route Qty: 400 12RF Rx Instructions: 4 times daily (DME) blood sugar diagnostic Strip See Rx Instructions .Route Qty: 200 12RF Rx Instructions: 4 times daily (DME) Comfort EZ Pen [place] 33 gauge x 5/16 needle See Rx Instructions .Route Qty: 400 12RF Rx Instructions: 4 times daily Phuc Vega U-100 Insulin 100 unit/mL insulin pen 6 unit subcut .before meals MDD 22 Qty: 15 0RF (DME) Dexcom G7 Sensor Device MISCELLANEOUS Qty: 9 0RF Rx Instructions: every 10 days hyoscyamine sulfate [Levsin] 0.125 mg tablet 0.125 mg PO QID Qty: 14 0RF omeprazole 20 mg capsule,delayed release(DR/EC) 20 mg PO DAILY 14 Days Qty: 14 0RF (DME) pen needle, diabetic [Comfort EZ Pen [place]] 33 gauge x 3/16 needle See Rx Instructions .Route Qty: 400 11RF Rx Instructions: 4 times a day (DME) lancets [Comfort EZ Lancets] 28 gauge misc See Rx Instructions .Route Qty: 400 0RF Rx Instructions: 3 times a day (DME) pen needle, diabetic [Comfort EZ Pen [place]] 32 gauge x 3/16 needle See Rx Instructions .Route Qty: 500 12RF Rx Instructions: two times daily Farxiga 5 mg tablet 5 mg PO DAILY Qty: 90 0RF (DME) Dexcom G7 Sensor Device See Rx Instructions .Route Qty: 3 0RF Rx Instructions: change every 10 days lisinopril 2.5 mg tablet See Rx Instructions .ROUTE .COMPLEX Qty: 90 0RF Dose Instruction: TAKE ONE TABLET BY MOUTH EVERY DAY Rx Instructions: TAKE ONE TABLET BY MOUTH EVERY DAY (DME) blood-glucose meter [Contour Next EZ Meter] Misc See Rx Instructions .Route Qty: 1 0RF Rx Instructions: use four times a day insulin glargine [Lantus Solostar U-100 Insulin] 100 unit/mL (3 mL) insulin pen 40 unit subcut QPM Qty: 15 0RF Follow-up/Referrals: Jayne,Raman Farrar [Primary Care Provider] - 1 Week
[2023-11-02 08:08] LABS: Potassium 4.2 mmol/L (3.4-5.0)
[2023-11-02 08:09] LABS: Alanine Aminotransferase 21 U/L (6-35); Albumin Level 4.6 g/dL (3.5-5.1); Alkaline Phosphatase 99 U/L (38-126); Anion Gap 11 mmol/L (4-12); Aspartate Amino Transferase 23 U/L (14-36); Bilirubin,Total 0.5 mg/dL (0.2-1.3); Blood Urea Nitrogen 15 mg/dL (7-17); Calcium 9.2 mg/dL (8.4-10.2); Carbon Dioxide 20 mmol/L (22-30); Chloride 108 mmol/L (98-107); Estimated CRCL calculation 145 ml/min; Estimated Glomerular Filt Rate > 60; Sodium 139 mmol/L (137-145)
[2023-11-02 08:17] LABS: Glucose 315 mg/dL (65-110)
[2023-11-02 08:22] VITALS: BP 118/70; PULSE 77; RESP 22; O2SAT 99
[2023-11-02 08:26] LABS: Glucose Point of Care 311 mg/dl (65-105)
[2023-11-02 08:47] VITALS: BP 110/75; PULSE 100; RESP 25; TEMP 36.6; O2SAT 100
== END 2023-11-02 08:50 | disposition home or self-care (01) ==
LOC: ANHED 08:04
PROVIDERS: Emergency Provider Emergency Medicine; PCP Internal Medicine Infectious Disease
DX: E11.65 Type 2 diabetes mellitus with hyperglycemia (principal); E28.2 Polycystic ovarian syndrome; Z79.4 Long term (current) use of insulin
CPT/HCPCS: 36415; 80053; 81025; 82948; 85025; 96360; 99283; J7030

== ENCOUNTER 2023-11-09 06:20 | Emergency (ER) | payer OTHER, SELFPAY ==
[2023-11-09 06:30] VITALS: BP 156/98; PULSE 91; RESP 20; TEMP 36.6; O2SAT 100
[2023-11-09 06:41] VITALS: O2SAT 100
[2023-11-09 06:41] LABS: Glucose Point of Care 238 mg/dl (65-105)
[2023-11-09] MEDS: SODIUM CHLORIDE 0.9% IV 1,000 ML 999 ML IV CONT (06:49)
[2023-11-09 06:50] LABS: Basophils Percent Auto 0.2 % (0.2-1.2); Eosinophils Absolute Auto 0.2 K/mm3 (0-0.3); Eosinophils Percent Auto 1.5 % (0-4.4); Hematocrit 46.6 % (37.0-47.0); Hemoglobin 15.2 g/dL (12.0-15.0); Immature Granulocyte Absolute 0.04 K/mm3 (0.00-0.031); Immature Granulocyte Percent A 0.3 % (0-0.5); Lymphocytes Absolute Auto 2.22 K/mm3 (0.9-3.2); Lymphocytes Percent Auto 19.3 % (18.3-44.2); Mean Corpuscular HGB Conc 32.6 g/dl (32-36); Mean Corpuscular Volume 91.9 fl (80-100); Mean Platelet Volume 12.4 fl (7.4-10.4); Monocytes Absolute Auto 0.8 K/mm3 (0.1-0.6); Monocytes Percent Auto 6.6 % (2.6-8.5); Neutrophils Absolute Auto 8.3 K/mm3 (1.3-6.7); Neutrophils Percent Auto 72.1 % (45.5-73.1); Platelet Count Result 137 k/mm3 (150-375); Red Blood Count 5.07 M/mm3 (4.2-5.4); White Blood Count 11.5 K/mm3 (4.5-10.0)
[2023-11-09 07:00] LABS: Appearance Urine Clear (Clear); Bacteria Urine 1+ /hpf; Bilirubin Urine Negative (Negative); Blood Urine 2+ (Negative); Color Urine Yellow (Yellow); Glucose Urine UA 3+ mg/dL (Negative); Ketones Urine 1+ mg/dL (Negative); Leukocyte Esterase Ur Negative LEU/UL (Negative); Nitrate Urine Negative (Negative); Non Pathogenic Casts 0-2; Protein Urine Negative (Negative); RBC Urine 21-50 /hpf (0-2); Squamous Epithelial Cell Urine Occasional /hpf (Few); Urobilinogen Urine 0.2 mg/dL (<2.0); WBC Urine 0-5 /hpf (0-3)
[2023-11-09 07:07] LABS: Alanine Aminotransferase 17 U/L (6-35); Albumin Level 4.7 g/dL (3.5-5.1); Alkaline Phosphatase 98 U/L (38-126); Anion Gap 7 mmol/L (4-12); Aspartate Amino Transferase 20 U/L (14-36); Bilirubin,Total 0.7 mg/dL (0.2-1.3); Blood Urea Nitrogen 11 mg/dL (7-17); Calcium 9.7 mg/dL (8.4-10.2); Carbon Dioxide 25 mmol/L (22-30); Chloride 109 mmol/L (98-107); Estimated CRCL calculation 145 ml/min; Estimated Glomerular Filt Rate > 60; Glucose 227 mg/dL (65-110); Magnesium 1.8 mg/dL (1.6-2.3); Phosphorus 4.8 mg/dL (2.5-4.5); Potassium 4.4 mmol/L (3.4-5.0); Sodium 141 mmol/L (137-145)
[2023-11-09 07:08] VITALS: BP 128/68; PULSE 82; RESP 13; O2SAT 100
[2023-11-09 07:08] LABS: Beta-Hydroxybutyrate/Acetoacetate 0.27 mmol/L (0.02-0.27)
[2023-11-09 07:15] LABS: Strep Group A RT-PCR NOT DETECTED (Negative)
[2023-11-09 07:16] LABS: Add Urine Microscopic? YES; Specific Grav Ur 1.041 (1.001-1.035)
[2023-11-09 07:26] LABS: Influenza A QL RT-PCR Negative (Negative); Influenza B QL RT-PCR Negative (Negative); RSV RNA, RT-PCR Negative (Negative); SARS-CoV-2 RNA PCR Negative (Negative)
[2023-11-09 07:43] VITALS: BP 114/97; PULSE 83; RESP 20; O2SAT 100
--- NOTE | 2023-11-09 07:43 | ED.RECABL ---
HPI - Recheck/Abnormal Lab/Rx General Chief Complaint: Recheck/Abnormal Lab/Rx Stated Complaint: blood sugar problems Time Seen by Provider: 11/09/23 07:00 Source: patient Mode of arrival: ambulatory Limitations: no limitations History of Present Illness HPI narrative: patient has insulin-dependent type 2 diabetes mellitus. she is presenting to the emergency department with blood sugar issues as well as a sore scratchy throat. She woke up at 3:00 a.m. this morning her blood sugar was elevated. She took a dose of her short-acting insulin. This is based on a sliding scale. her long-acting insulin is 42 units q.h.s.. She is also complaining of a headache. She has been taking ibuprofen and Tylenol [id number]. She is also on Farxiga and Rebelsus for her diabetes. she has an upcoming appointment with her cytology supervisor Dr. Natalya nixon in November and she also saw them approximately a month ago. she is also complaining of right ear pain. She has noted that it burnette when she urinates but denies any urgency or frequency. No gross hematuria although she had had issues with blood in her urine previously and had undergone cystoscopy with urology with no clear etiology Related Data Home Medications Medication Instructions Recorded Confirmed lancets 30 gauge (OneTouch Delica 11/01/22 10/03/23 Plus Lancet) etonogestrel 68 mg subdermal 1 implant subdermal ONCE 01/05/23 10/03/23 implant (Nexplanon) blood-glucose meter,continuous 09/05/23 10/03/23 (Dexcom G7 Product Support Analyst) Allergies Allergy/AdvReac Type Severity Reaction Status Date / Time No Known Allergies Allergy Verified 11/02/23 07:04 [facility] Past Medical History Medical History (Updated 11/09/23 @ 08:28 by iLdia Pompa MD) Fatty liver Herpes Insulin dependent type 2 diabetes mellitus PCOS (polycystic ovarian syndrome) Stomach problems possible gastritis Surgical History Surgical History No significant past surgical history Family History Family History Grandparent Cancer spread everywhere, unknown cause Father Cerebrovascular accident Mother Hypertension Thyroid disorder Arthritis Social History Social History Smoking status: Never smoker Alcohol intake: current Alcohol use details: occasionally Substance use: current Substance use type: marijuana Do You Feel Safe in your Home?: Yes Lack of Transportation: No Lack of Food: Never True Current Housing: I Have Housing Concerned About Future Housing: No Difficulty Paying Gas/Electric Bills: No Difficulty Paying for Meds: No Currently Unemployed: No Education: High School Diploma/GED Difficulty w/ Childcare or Family Care: No Living arrangements: with family Exam Narrative: GENERAL: Well-appearing, well-nourished, and in no acute distress. HEAD: Normocephalic, atraumatic. Alopecia. EYES: Non injected, non icteric ENT: Nares clear, no rhinorrhea or epistaxis. posterior oropharynx mildly erythematous. There is tonsillar swelling/ hypertrophy without exudate. Uvula is midline. Bilateral cervical lymphadenopathy. Bilateral tympanic membranes are normal without effusion or erythema NECK: Supple. CHEST: Speaking in full sentences. No respiratory distress. HEART: Regular rate and rhythm. . ABDOMEN: Soft, nondistended. EXTREMITIES: Normal range of motion. No edema. SKIN: Warm, dry, no rash. NEURO: No focal deficits. Alert and oriented x3. Speaks clearly, not muffled. PSYCH: Normal mood and affect. Course Vital Signs Vital signs: Vital Signs Temperature 97.8 F 11/09/23 06:30 Pulse Rate 91 11/09/23 06:30 Respiratory Rate 20 11/09/23 06:30 Blood Pressure 156/98 H 11/09/23 06:30 Pulse Oximetry 100 11/09/23 06:30 Oxygen Delivery Room Air 11/09/23
--- NOTE | 2023-11-09 07:43 | PC.NURSE ---
BS 203
[2023-11-09 07:51] LABS: Glucose Point of Care 203 mg/dl (65-105)
[2023-11-09] MEDS: CEPHALEXIN 500 MG CAPSULE PO (08:22)
[2023-11-09] MEDS: dexAMETHasone 2 MG TABLET 10 MG PO (08:23)
== END 2023-11-09 08:35 | disposition home or self-care (01) ==
PROVIDERS: Emergency Medicine; Emergency Provider Student in an Organized Health Care Education/Training Program; PCP Internal Medicine Infectious Disease
DX: E11.65 Type 2 diabetes mellitus with hyperglycemia (principal); J02.9 Acute pharyngitis, unspecified; D69.6 Thrombocytopenia, unspecified; D72.829 Elevated white blood cell count, unspecified; R30.0 Dysuria; R71.8 Other abnormality of red blood cells; Z20.822 Contact with and (suspected) exposure to COVID-19; E28.2 Polycystic ovarian syndrome; Z79.4 Long term (current) use of insulin
CPT/HCPCS: 36415; 80053; 81001; 81025; 82010; 82948; 83735; 84100; 85025; 87637; 87651; 96360; 99283; A9270; J7030; J8540

== ENCOUNTER 2023-12-31 08:10 | Emergency (ER) | payer OTHER, SELFPAY ==
--- NOTE | 2023-12-31 08:15 | ED.GENADULT ---
HPI - General Adult General Chief complaint: Nausea/Vomiting/Diarrhea Stated complaint: Stomach Ache Time Seen by Provider: 12/31/23 08:20 Source: patient, RN notes reviewed and old records reviewed Mode of arrival: ambulatory Limitations: no limitations History of Present Illness HPI narrative: 28-year-old female presents to the [facility] with complaints of stomach issues. Patient reports stomach cramping and belching that started yesterday. States that she took omeprazole today. States that she had a couple of episodes of diarrhea. Denies any significant pain but she does have cramping to the left lower quadrant. Patient is a diabetic,Per dexcom BS is 188, Clinic BS is 179 Onset (ago): day(s) (1) Treatments prior to arrival: other Related Data Home Medications Medication Instructions Recorded Confirmed lancets 30 gauge (OneTouch Delica 11/01/22 12/31/23 Plus Lancet) etonogestrel 68 mg subdermal 1 implant subdermal ONCE 01/05/23 12/31/23 implant (Nexplanon) blood-glucose meter,continuous 09/05/23 12/31/23 (Dexcom G7 Housing Liaison) Allergies Allergy/AdvReac Type Severity Reaction Status Date / Time No Known Allergies Allergy Verified 12/31/23 08:25 Review of Systems Review of Systems: All systems reviewed & are unremarkable except as noted in HPI and below Constitutional: Constitutional: Reports no additional constitutional complaints Eyes: Eyes: Reports no additional eye complaints ENT: Reports system reviewed and no additional complaints, except as documented Cardiovascular: Cardiovascular: Reports no additional cardiovascular complaints, Denies chest pain and Denies dyspnea Respiratory: Respiratory: Reports no additional respiratory complaints, Denies chest congestion, Denies cough and Denies dyspnea Gastrointestinal: Gastrointestinal: Reports as per HPI, Denies abdominal pain, Reports belching, Reports GI cramping, Reports diarrhea, Reports nausea and Denies vomiting Genitourinary: Genitourinary: Reports no additional female genitourinary complaints and Denies dysuria Musculoskeletal: Musculoskeletal: Reports no additional musculoskeletal complaints Integumentary/Breasts: Skin/Breast: Reports system reviewed and no additional complaints, except as docu Neurologic: Reports system reviewed and no additional complaints, except as documented Psychiatric: Psychiatric: Reports no additional psychiatric complaints Allergic/Immunologic: Allergic/Immunologic: Reports no additional allergic/immunologic complaints PMFSH Past Medical History Medical History Fatty liver Herpes Insulin dependent type 2 diabetes mellitus PCOS (polycystic ovarian syndrome) Stomach problems possible gastritis Surgical History Surgical History No significant past surgical history Family History Family History Grandparent Cancer spread everywhere, unknown cause Father Cerebrovascular accident Mother Hypertension Thyroid disorder Arthritis Social History Social History Smoking status: Never smoker Alcohol intake: current Alcohol use details: occasionally Substance use: current Substance use type: marijuana Do You Feel Safe in your Home?: Yes Lack of Transportation: No Lack of Food: Never True Current Housing: I Have Housing Concerned About Future Housing: No Difficulty Paying Gas/Electric Bills: No Difficulty Paying for Meds: No Currently Unemployed: No Education: High School Diploma/GED Difficulty w/ Childcare or Family Care: No Living arrangements: with family Comments At the time of my signature, I reviewed and agree with the nursing past medical, surgical, social, and family history. There is no relevant family history pertinent to the patient
[2023-12-31 08:17] VITALS: BP 140/82; PULSE 77; RESP 16; TEMP 36.5; O2SAT 100
[2023-12-31 08:37] LABS: Glucose Point of Care 179 mg/dl (65-105)
== END 2023-12-31 08:52 | disposition home or self-care (01) ==
PROVIDERS: Emergency Provider Nurse Practitioner; PCP Internal Medicine Infectious Disease
DX: R19.7 Diarrhea, unspecified (principal); R11.0 Nausea; F12.90 Cannabis use, unspecified, uncomplicated; K76.0 Fatty (change of) liver, not elsewhere classified; E11.9 Type 2 diabetes mellitus without complications; Z79.4 Long term (current) use of insulin; E28.2 Polycystic ovarian syndrome
CPT/HCPCS: 81003; 81025; 82948; 99212; G0463

== ENCOUNTER 2024-01-21 10:02 | Emergency (ER) | payer OTHER, SELFPAY ==
--- NOTE | ~2024-01-21 | CT_ITS ---
Non-contrast CT scan of the Abdomen and Pelvis Clinical indication: Left flank pain Technique: 2.5 mm axial scans were obtained through the abdomen and pelvis without intravenous or or al contrast. Dose reduction technique was used on this scan by utilizing automated exposure control a nd iterative reconstruction technique. The dose-length product (DLP) was 420.49 mGy-cm. COMPARISON: 10/10/2023 Findings: Images through the lung bases reveal no abnormalities. There is no evidence of renal or ureteral calculi. The kidneys and the ureters are nondilated. The liver, spleen, pancreas, gallbladder, and adrenals appear normal. There is no aortic aneurysm. There is no evidence of bowel obstruction. Images through the pelvis were performed. There is no evidence of ascites or lymphadenopathy. Urinary bladder unremarkable. No pelvic mass seen. Impression: No significant abnormality seen. Reviewed, dictated and finalized at [facility]. Impression: No significant abnormality seen.
[2024-01-21 10:11] VITALS: BP 125/75; PULSE 104; RESP 16; TEMP 36.7; O2SAT 100
[2024-01-21 11:24] LABS: Appearance Urine Cloudy (Clear); Bacteria Urine 2+ /hpf; Bilirubin Urine Negative (Negative); Blood Urine 3+ (Negative); Color Urine Yellow (Yellow); Glucose Urine UA 2+ mg/dL (Negative); Ketones Urine Negative (Negative); Leukocyte Esterase Ur Negative LEU/UL (Negative); Need Manual Microscopic Reviewed; Nitrate Urine Negative (Negative); Non Pathogenic Casts 0-2; Protein Urine 2+ mg/dL (Negative); Specific Grav Ur 1.026 (1.001-1.035); Squamous Epithelial Cell Urine Few /hpf (Few); Urobilinogen Urine 0.2 mg/dL (<2.0); WBC Urine 0-5 /hpf (0-3); pH Urine 5.5 (5.0-9.0)
[2024-01-21 11:25] LABS: Add Urine Microscopic? YES
[2024-01-21 12:10] VITALS: BP 120/82; PULSE 99; RESP 18; O2SAT 99
--- NOTE | 2024-01-21 12:27 | ED.BACK ---
HPI - Back Pain/Injury General Chief Complaint: Back Pain/Injury Stated Complaint: back pain Time Seen by Provider: 01/21/24 11:09 History of Present Illness HPI Narrative: Patient is a 28-year-old female who presents ER with left-sided back pain for last week. Has not nor low back but her boyfriend found. Worse with twisting and bending. She has been trying massage without improvement. She recently had a UTI that she took antibiotics for an thought it cleared up. No urinary frequency or dysuria. No history kidney stone. No known trauma. Related Data Home Medications Medication Instructions Recorded Confirmed lancets 30 gauge (OneTouch Delica 11/01/22 12/31/23 Plus Lancet) etonogestrel 68 mg subdermal 1 implant subdermal ONCE 01/05/23 12/31/23 implant (Nexplanon) blood-glucose meter,continuous 09/05/23 12/31/23 (Dexcom G7 Jewelry Repairer) Allergies Allergy/AdvReac Type Severity Reaction Status Date / Time No Known Allergies Allergy Verified 01/21/24 10:52 Review of Systems Constitutional: Constitutional: Reports no additional constitutional complaints Genitourinary: Genitourinary: Reports no additional female genitourinary complaints Musculoskeletal: Musculoskeletal: Reports back pain, Denies arthralgias and Denies joint swelling Integumentary/Breasts: Skin/Breast: Reports system reviewed and no additional complaints, except as docu PMFSH Past Medical History Medical History Fatty liver Herpes Insulin dependent type 2 diabetes mellitus PCOS (polycystic ovarian syndrome) Stomach problems possible gastritis Surgical History Surgical History No significant past surgical history Family History Family History Grandparent Cancer spread everywhere, unknown cause Father Cerebrovascular accident Mother Hypertension Thyroid disorder Arthritis Social History Social History Smoking status: Never smoker Alcohol intake: current Alcohol use details: occasionally Substance use: current Substance use type: marijuana Do You Feel Safe in your Home?: Yes Lack of Transportation: No Lack of Food: Never True Current Housing: I Have Housing Concerned About Future Housing: No Difficulty Paying Gas/Electric Bills: No Difficulty Paying for Meds: No Currently Unemployed: No Education: High School Diploma/GED Difficulty w/ Childcare or Family Care: No Living arrangements: with family Exam Narrative: GENERAL: Well-appearing, well-nourished, and in no acute distress. HEAD: Normocephalic, atraumatic. ENT: Mucous membranes moist. CHEST: Clear to auscultation. No respiratory distress. HEART: Regular rate and rhythm. Normal peripheral pulses. Back: No midline tenderness at T/L-spine. There are palpable knots on the left-side at L5. EXTREMITIES: Normal range of motion. No edema. SKIN: Warm, dry, no rash. NEURO: Alert and oriented x3. PSYCH: Normal mood and affect. Course Course Emergency Course: Informed of results. Discharge home with anti-inflammatories and muscle relaxers. Will also treat UTI. Vital Signs Vital signs: Vital Signs Temperature 98.1 F 01/21/24 10:11 Pulse Rate 104 H 01/21/24 10:11 Respiratory Rate 16 01/21/24 10:11 Blood Pressure 125/75 01/21/24 10:11 Pulse Oximetry 100 01/21/24 10:11 Oxygen Delivery Room Air 01/21/24 10:11 Temperature 98.4 F 01/21/24 12:43 Pulse Rate 99 01/21/24 12:10 Respiratory Rate 18 01/21/24 12:10 Blood Pressure 120/82 01/21/24 12:10 Pulse Oximetry 99 01/21/24 12:10 Oxygen Delivery Room Air 01/21/24 10:11 MDM - Back Pain/Injury Lab Data Labs: Lab Results 01/21/24 Range/Units 11:06 Urine Color Yellow (Yellow) Urine Michi
[2024-01-21 12:43] VITALS: TEMP 36.9
== END 2024-01-21 12:44 | disposition home or self-care (01) ==
PROVIDERS: Emergency Provider Emergency Medicine; PCP Internal Medicine Infectious Disease
DX: S39.012A Strain of muscle, fascia and tendon of lower back, initial encounter (principal); N39.0 Urinary tract infection, site not specified; E11.9 Type 2 diabetes mellitus without complications; Z79.4 Long term (current) use of insulin; X58.XXXA Exposure to other specified factors, initial encounter
CPT/HCPCS: 74176; 81001; 81025; 99284

== ENCOUNTER 2024-04-23 09:30 | Emergency (ER) | payer OTHER, SELFPAY ==
[2024-04-23 09:48] LABS: EDUAAPPEAR Clear; EDUABILI Negative (Negative); EDUABLOOD 2+ (Negative); EDUACOLOR1 Tea Colored; EDUAGLUCOSE 3+ (Negative); EDUAKETONE 1+ (Negative); EDUALEUKO Negative (Negative); EDUANITRATE Negative (Negative); EDUAPH 5.5; EDUAPROTEIN Negative (Negative); EDUASPGRAVITY 1.025; EDUAUROBILI 0.2
[2024-04-23 09:53] VITALS: BP 143/82; PULSE 95; RESP 16; TEMP 36; O2SAT 99
--- NOTE | 2024-04-23 09:54 | ED.FEMALEGU ---
HPI - Female Genitourinary General Chief complaint: Urogenital-Female Stated complaint: lower back pain,urinating more Time Seen by Provider: 04/23/24 09:54 Source: patient Mode of arrival: ambulatory Limitations: no limitations History of Present Illness HPI Narrative: 28 yo F presents with c/o low back pain for 1 to 2 days. Called her PCP for appt and was no able to see her. reports hx of proteinin urine and takes lisinopril for that. BS 160 today. Reports urinary frequency, no dysuria. Denies work injury. Requesting work note. Ambulatory with steady gait. all systems reviewed and negative except as noted above. Related Data Home Medications Medication Instructions Recorded Confirmed lancets 30 gauge (OneTouch Delica 11/01/22 04/23/24 Plus Lancet) etonogestrel 68 mg subdermal 1 implant subdermal ONCE 01/05/23 04/23/24 implant (Nexplanon) Allergies Allergy/AdvReac Type Severity Reaction Status Date / Time No Known Allergies Allergy Verified 04/23/24 09:52 Review of Systems Review of Systems: CONSTITUTIONAL: Denies fever, chills, or sweats. EYES: Denies visual changes, redness, or discharge. ENT: Denies rhinorrhea, congestion, sore throat, or otalgia. CARDIOVASCULAR: Denies chest pain, palpitations, or edema. RESPIRATORY: Denies cough or dyspnea. GASTROINTESTINAL: Denies abdominal pain, nausea, vomiting, or diarrhea. GENITOURINARY: Denies dysuria or hematuria. Reports urinary frequency. SKIN: Denies rash or itching. MUSCULOSKELETAL: Reports low back pain. Denies joint pain, or myalgia. NEUROLOGIC: Denies headache, numbness, or weakness. PSYCHIATRIC: Denies anxiety or depression. All other systems reviewed are negative, except as documented in HPI. [facility] Past Medical History Medical History Fatty liver Herpes Insulin dependent type 2 diabetes mellitus PCOS (polycystic ovarian syndrome) Stomach problems possible gastritis Surgical History Surgical History No significant past surgical history Family History Family History Grandparent Cancer spread everywhere, unknown cause Father Cerebrovascular accident Mother Hypertension Thyroid disorder Arthritis Social History Social History Smoking status: Never smoker Alcohol intake: current Alcohol use details: occasionally Substance use: current Substance use type: marijuana Do You Feel Safe in your Home?: Yes Lack of Transportation: No Lack of Food: Never True Current Housing: I Have Housing Concerned About Future Housing: No Difficulty Paying Gas/Electric Bills: No Difficulty Paying for Meds: No Currently Unemployed: No Education: High School Diploma/GED Difficulty w/ Childcare or Family Care: No Living arrangements: with family Comments At time of signature, agree with nursing past medical, surgical, social and family history. There is no relevant family history pertinent to the presenting complaint. Exam Narrative: GENERAL: This is a well-nourished, well-developed patient, in no apparent distress. HEAD: normocephalic, atraumatic. EYES: PERRL. Sclera clear/white. Vision is grossly intact. EARS: External ears normal NOSE: External nose normal NECK: Neck supple, non-tender without lymphadenopathy, masses or thyromegaly. CARDIOVASCULAR: Regular rate and rhythm without murmurs, gallops, or rubs. RESPIRATORY: Clear to auscultation. Breath sounds equal bilaterally. No wheezes, rales, or rhonchi. SKIN: warm, Dry, intact with no suspicious lesions or rash, good texture and turgor. NEURO: awake, alert, and oriented to person, place and time. There were no obvious focal neurologic abnormalities. EXTREMITIES: No joint tenderness, effusion, or edema noted. BACK: no CVA te
== END 2024-04-23 10:19 | disposition home or self-care (01) ==
PROVIDERS: Emergency Provider Nurse Practitioner Family; PCP Internal Medicine Infectious Disease
DX: S39.012A Strain of muscle, fascia and tendon of lower back, initial encounter (principal); X58.XXXA Exposure to other specified factors, initial encounter; I10 Essential (primary) hypertension; E11.9 Type 2 diabetes mellitus without complications; Z79.4 Long term (current) use of insulin; E28.2 Polycystic ovarian syndrome; K76.0 Fatty (change of) liver, not elsewhere classified; F12.90 Cannabis use, unspecified, uncomplicated
CPT/HCPCS: 81003; 99213; G0463

== ENCOUNTER 2024-04-28 08:24 | Emergency (ER) | payer OTHER, SELFPAY ==
--- NOTE | ~2024-04-28 | CT_ITS ---
CT of the Abdomen and Pelvis: Indication: Abdominal pain Technique: 2.5 mm axial scans were obtained through the abdomen and pelvis following intravenous adm inistration of 100 cc of Omnipaque 350. Dose reduction technique was used on this scan by utilizing a utomated exposure control and iterative reconstruction technique. The dose-length product (DLP) was 4 65.37 mGy-cm. COMPARISON: 01/21/2024 Findings: Scans through the lung bases are unremarkable. The liver, spleen, pancreas, gallbladder, adrenals and kidneys are within normal limits. No evidence of aortic aneurysm. No lymphadenopathy. Possible mild wall thickening of the sigmoid colon/rectum. No bowel obstruction. No abscess or free a ir. Images through the pelvis were performed. Urinary bladder unremarkable. No pelvic mass seen. No ascit es. Impression: Possible mild infectious/inflammatory colitis of the sigmoid colon and rectum. Correlate clinically. Reviewed, dictated and finalized at [facility]. Impression: Possible mild infectious/inflammatory colitis of the sigmoid colon and rectum. Correlate clinically.
[2024-04-28 08:30] VITALS: BP 136/86; PULSE 89; RESP 16; O2SAT 100
[2024-04-28 08:49] LABS: BEDSIDEPREGUCG Negative (Negative)
--- NOTE | 2024-04-28 09:04 | ED.ABDPAIN ---
HPI - Abdominal Pain General Chief Complaint: Abdominal Pain Stated Complaint: NAUSEA,WET BURPS Time Seen by Provider: 04/28/24 08:30 History of Present Illness HPI narrative: Patient is a 28-year-old female who presents ER with stomach pain. Ongoing for 1 week. Right-sided. Associated with belching and halitosis. Also has acid reflux. No improvement with Gas-X. She has had mild diarrhea symptoms improved for about 48 hours 5 days ago and then returned. Patient increased her semaglutide 2 weeks ago. Related Data Home Medications Medication Instructions Recorded Confirmed lancets 30 gauge (OneTouch Delica 11/01/22 04/23/24 Plus Lancet) etonogestrel 68 mg subdermal 1 implant subdermal ONCE 01/05/23 04/23/24 implant (Nexplanon) Allergies Allergy/AdvReac Type Severity Reaction Status Date / Time No Known Allergies Allergy Verified 04/23/24 09:52 Review of Systems Review of Systems: All systems reviewed & are unremarkable except as noted in HPI and below Constitutional: Constitutional: Reports no additional constitutional complaints ENT: Reports system reviewed and no additional complaints, except as documented Cardiovascular: Cardiovascular: Reports no additional cardiovascular complaints Respiratory: Respiratory: Reports no additional respiratory complaints Gastrointestinal: Gastrointestinal: Reports abdominal pain, Reports heartburn, Reports diarrhea, Reports nausea and Denies vomiting PMFSH Past Medical History Medical History Fatty liver Herpes Insulin dependent type 2 diabetes mellitus PCOS (polycystic ovarian syndrome) Stomach problems possible gastritis Surgical History Surgical History No significant past surgical history Family History Family History Grandparent Cancer spread everywhere, unknown cause Father Cerebrovascular accident Mother Hypertension Thyroid disorder Arthritis Social History Social History Smoking status: Never smoker Alcohol intake: current Alcohol use details: occasionally Substance use: current Substance use type: marijuana Do You Feel Safe in your Home?: Yes Lack of Transportation: No Lack of Food: Never True Current Housing: I Have Housing Concerned About Future Housing: No Difficulty Paying Gas/Electric Bills: No Difficulty Paying for Meds: No Currently Unemployed: No Education: High School Diploma/GED Difficulty w/ Childcare or Family Care: No Living arrangements: with family Exam Narrative: GENERAL: Well-appearing, well-nourished, and in no acute distress. HEAD: Normocephalic, atraumatic. ENT: Mucous membranes moist. CHEST: Clear to auscultation. No respiratory distress. HEART: Regular rate and rhythm. Normal peripheral pulses. ABDOMEN: Soft, nontender, nondistended. EXTREMITIES: Normal range of motion. No edema. SKIN: Warm, dry, no rash. NEURO: Alert and oriented x3. PSYCH: Normal mood and affect. Course Course Emergency Course: Patient informed of results. Will treat for colitis but patient also may be having side effects to her semaglutide. Recommend follow-up with PCP. Vital Signs Vital signs: Vital Signs Pulse Rate 89 04/28/24 08:30 Respiratory Rate 16 04/28/24 08:30 Blood Pressure 136/86 04/28/24 08:30 Pulse Oximetry 100 04/28/24 08:30 Pulse Rate 78 04/28/24 09:30 Respiratory Rate 16 04/28/24 09:30 Blood Pressure 135/88 04/28/24 09:30 Pulse Oximetry 100 04/28/24 09:30 MDM - Abdominal Pain Lab Data 04/28/24 08:58 04/28/24 08:58 Labs: Lab Results 04/28/24 04/28/24 Range/Units 08:47 08:58 WBC 11.1 H (4.5-10.0) K/mm3 RBC 4.91 (4.2-5.4) M/mm3 Hgb 14.7 (12.0-15.0)
[2024-04-28 09:06] LABS: Basophils Absolute Auto 0.1 K/mm3 (0.0-0.1); Basophils Percent Auto 0.5 % (0.2-1.2); Eosinophils Absolute Auto 0.4 K/mm3 (0-0.3); Eosinophils Percent Auto 3.5 % (0-4.4); Hematocrit 43.2 % (37.0-47.0); Hemoglobin 14.7 g/dL (12.0-15.0); Immature Granulocyte Absolute 0.04 K/mm3 (0.00-0.031); Immature Granulocyte Percent A 0.4 % (0-0.5); Lymphocytes Absolute Auto 2.77 K/mm3 (0.9-3.2); Mean Corpuscular Hemoglobin 29.9 pg (26-34); Mean Platelet Volume 11.3 fl (7.4-10.4); Monocytes Absolute Auto 0.6 K/mm3 (0.1-0.6); Monocytes Percent Auto 5.4 % (2.6-8.5); Neutrophils Absolute Auto 7.2 K/mm3 (1.3-6.7); Neutrophils Percent Auto 65.2 % (45.5-73.1); Platelet Count Result 158 k/mm3 (150-375); Red Blood Count 4.91 M/mm3 (4.2-5.4); Red Cell Distribution Width 12.8 % (11.5-14.5); White Blood Count 11.1 K/mm3 (4.5-10.0)
[2024-04-28 09:09] LABS: Add Urine Microscopic? YES; Appearance Urine Clear (Clear); Bacteria Urine Rare /hpf; Bilirubin Urine Negative (Negative); Blood Urine 3+ (Negative); Color Urine Yellow (Yellow); Glucose Urine UA 3+ mg/dL (Negative); Ketones Urine Trace mg/dL (Negative); Leukocyte Esterase Ur Negative LEU/UL (Negative); Nitrate Urine Negative (Negative); Non Pathogenic Casts 0-2; Protein Urine 1+ mg/dL (Negative); RBC Urine 21-50 /hpf (0-2); Specific Grav Ur 1.036 (1.001-1.035); Squamous Epithelial Cell Urine Occasional /hpf (Few); Urobilinogen Urine 0.2 mg/dL (<2.0); WBC Urine 0-5 /hpf (0-3)
[2024-04-28 09:18] LABS: Alanine Aminotransferase 19 U/L (6-35); Albumin Level 4.5 g/dL (3.5-5.1); Alkaline Phosphatase 68 U/L (38-126); Anion Gap 10 mmol/L (4-12); Aspartate Amino Transferase 20 U/L (14-36); Bilirubin,Total 0.7 mg/dL (0.2-1.3); Blood Urea Nitrogen 14 mg/dL (7-17); Calcium 9.1 mg/dL (8.4-10.2); Carbon Dioxide 23 mmol/L (22-30); Chloride 105 mmol/L (98-107); Estimated CRCL calculation 109 ml/min; Estimated Glomerular Filt Rate > 60; Glucose 179 mg/dL (65-110); Lipase 112 U/L (23-300); Potassium 3.8 mmol/L (3.4-5.0); Sodium 138 mmol/L (137-145)
[2024-04-28 09:30] VITALS: BP 135/88; PULSE 78; RESP 16; O2SAT 100
[2024-04-28 10:30] VITALS: BP 123/78; PULSE 96; RESP 18; TEMP 36.5; O2SAT 99
== END 2024-04-28 10:45 | disposition home or self-care (01) ==
PROVIDERS: Emergency Provider Emergency Medicine; PCP Internal Medicine Infectious Disease
DX: K52.9 Noninfective gastroenteritis and colitis, unspecified (principal); E11.9 Type 2 diabetes mellitus without complications; E28.2 Polycystic ovarian syndrome; K21.9 Gastro-esophageal reflux disease without esophagitis; Z79.4 Long term (current) use of insulin; Z79.899 Other long term (current) drug therapy; Z79.85 Long-term (current) use of injectable non-insulin antidiabetic drugs
CPT/HCPCS: 36415; 74177; 80053; 81001; 81025; 83690; 85025; 99284; Q9967

== ENCOUNTER 2024-07-14 09:02 | Emergency (ER) | payer OTHER, SELFPAY ==
--- NOTE | ~2024-07-14 | CT_ITS ---
EXAMINATION: CT abdomen pelvis w con DATE: 07/14/2024 10:38 INDICATION: Abdominal pain, nausea and diarrhea TECHNIQUE: Computed tomography (CT) of the abdomen and pelvis was performed with 100 mL Omnipaque-350 intravenous contrast. Automated exposure control and iterative reconstruction technique were employe d. The dose-length product was 390.93 mGy-cm. COMPARISON: 04/28/2024 FINDINGS: Bases are clear. Heart size is normal. No pericardial or pleural effusion. Focal hepatic steatosis at the ligamentum teres. Gallbladder and the spleen, pancreas, bilateral adrenal glands and left kidney are normal. There is a duplicated right renal collecting system with separate proximal ureters. It r emains indeterminate whether there is more distal ureteral effusion. Bowels including the appendix ar e normal. Bladder, anteverted uterus and bilateral adnexa are unremarkable. No free intraperitoneal g as or fluid. No pathologically enlarged abdominal or pelvic lymphadenopathy. Mild thoracolumbar levoc urvature with mild spondylosis. IMPRESSION: 1. No acute intra-abdominal/pelvic process. 2. Duplicated right renal collecting system with separate at least proximal ureters, indeterminate wh ether there is more distal pleural effusion. Reviewed, dictated and finalized at location [facility] IMPRESSION: 1. No acute intra-abdominal/pelvic process. 2. Duplicated right renal collecting system with separate at least proximal ure ters, indeterminate whether there is more distal pleural effusion.
[2024-07-14 09:09] VITALS: BP 115/86; PULSE 93; RESP 17; TEMP 36.6; O2SAT 98
[2024-07-14 09:15] VITALS: RESP 17; O2SAT 98
[2024-07-14 09:17] VITALS: BP 123/77; PULSE 87; RESP 17; O2SAT 100
[2024-07-14 09:22] LABS: Glucose Point of Care 275 mg/dl (65-105)
[2024-07-14 09:41] LABS: Basophils Percent Auto 0.3 % (0.2-1.2); Eosinophils Absolute Auto 0.1 K/mm3 (0-0.3); Eosinophils Percent Auto 1.8 % (0-4.4); Hematocrit 46.9 % (37.0-47.0); Hemoglobin 15.3 g/dL (12.0-15.0); Immature Granulocyte Absolute 0.02 K/mm3 (0.00-0.031); Immature Granulocyte Percent A 0.3 % (0-0.5); Lymphocytes Percent Auto 22.5 % (18.3-44.2); Mean Corpuscular HGB Conc 32.6 g/dl (32-36); Mean Corpuscular Hemoglobin 29.1 pg (26-34); Mean Corpuscular Volume 89.2 fl (80-100); Mean Platelet Volume 11.9 fl (7.4-10.4); Monocytes Absolute Auto 0.6 K/mm3 (0.1-0.6); Monocytes Percent Auto 9.3 % (2.6-8.5); Neutrophils Absolute Auto 4.4 K/mm3 (1.3-6.7); Neutrophils Percent Auto 65.8 % (45.5-73.1); Platelet Count Result 131 k/mm3 (150-375); Red Blood Count 5.26 M/mm3 (4.2-5.4); Red Cell Distribution Width 12.5 % (11.5-14.5); White Blood Count 6.7 K/mm3 (4.5-10.0)
[2024-07-14 09:56] LABS: Alanine Aminotransferase 25 U/L (6-35); Albumin Level 4.9 g/dL (3.5-5.1); Alkaline Phosphatase 97 U/L (38-126); Anion Gap 10 mmol/L (4-12); Aspartate Amino Transferase 26 U/L (14-36); Bilirubin,Total 0.6 mg/dL (0.2-1.3); Blood Urea Nitrogen 12 mg/dL (7-17); Calcium 9.4 mg/dL (8.4-10.2); Carbon Dioxide 20 mmol/L (22-30); Chloride 107 mmol/L (98-107); Estimated CRCL calculation 144 ml/min; Estimated Glomerular Filt Rate > 60; Glucose 250 mg/dL (65-110); Magnesium 1.8 mg/dL (1.6-2.3); Potassium 4.6 mmol/L (3.4-5.0); Sodium 137 mmol/L (137-145)
[2024-07-14 09:58] LABS: Add Urine Microscopic? YES; Appearance Urine Clear (Clear); Bacteria Urine Rare /hpf; Bilirubin Urine Negative (Negative); Blood Urine 3+ (Negative); Color Urine Yellow (Yellow); Glucose Urine UA 3+ mg/dL (Negative); Ketones Urine 1+ mg/dL (Negative); Leukocyte Esterase Ur Negative LEU/UL (Negative); Nitrate Urine Negative (Negative); Non Pathogenic Casts 0-2; Protein Urine 1+ mg/dL (Negative); RBC Urine 21-50 /hpf (0-2); Specific Grav Ur 1.042 (1.001-1.035); Squamous Epithelial Cell Urine None Seen /hpf (Few); Urobilinogen Urine 0.2 mg/dL (<2.0); WBC Urine 0-5 /hpf (0-3); pH Urine 6.5 (5.0-9.0)
[2024-07-14 10:02] LABS: Hemoglobin A1C 6.9 % (<5.7)
[2024-07-14 10:03] LABS: Beta-Hydroxybutyrate/Acetoacetate 0.11 mmol/L (0.02-0.27)
[2024-07-14 10:05] LABS: BEDSIDEPREGUCG Negative (Negative)
[2024-07-14] MEDS: SODIUM CHLORIDE 0.9% IV 1,000 ML 999 ML IV CONT ×2 (10:05→10:43)
[2024-07-14] MEDS: ONDANSETRON INJ 4 MG/2 ML VIAL IV PUSH (10:06)
[2024-07-14 10:37] LABS: Influenza A QL RT-PCR Negative (Negative); Influenza B QL RT-PCR Negative (Negative); RSV RNA, RT-PCR Negative (Negative); SARS-CoV-2 RNA PCR Negative (Negative)
--- NOTE | 2024-07-14 11:01 | ED.RECABL ---
HPI - Recheck/Abnormal Lab/Rx General Chief Complaint: Recheck/Abnormal Lab/Rx Stated Complaint: abnormal blood sugars Time Seen by Provider: 07/14/24 09:16 Source: patient Mode of arrival: ambulatory Limitations: no limitations History of Present Illness HPI narrative: Patient is a 28 y/o female who presents to the ED with c/o hyperglycemia. Patient is a type 2 diabetic, on insulin and oral therapies. Reports yesterday and today her blood sugars have been elevated into the upper 200s. States her blood sugars usually around 140-150. She did take her long-acting insulin last night, but has not taken her short-acting insulin with meals today as she has not eaten. Reports diarrhea today, lower abdominal pain, nausea, hot flashes. Denies known fevers. Denies vomiting. Reports urinary frequency but denies dysuria or hematuria. Has never been in DKA before. Related Data Home Medications ?Medication ?Instructions ?Recorded ?Confirmed ?Last Taken ?Type lancets 30 gauge (OneTouch Delica 11/01/22 04/23/24 Unknown History Plus Lancet) etonogestrel 68 mg subdermal 1 implant subdermal ONCE 01/05/23 04/23/24 Unknown History implant (Nexplanon) Allergies Allergy/AdvReac Type Severity Reaction Status Date / Time No Known Allergies Allergy Verified 07/14/24 09:17 Review of Systems Review of Systems: All systems reviewed & are unremarkable except as noted in HPI. All systems reviewed & are unremarkable except as noted in HPI and below PMFSH Past Medical History Medical History Insulin dependent type 2 diabetes mellitus Stomach problems possible gastritis PCOS (polycystic ovarian syndrome) Fatty liver Herpes Surgical History Surgical History No significant past surgical history Family History Family History Grandparent Cancer spread everywhere, unknown cause Father Cerebrovascular accident Mother Hypertension Thyroid disorder Arthritis Social History Social History Smoking status: Never smoker Alcohol intake: current Alcohol use details: occasionally Substance use: current Substance use type: marijuana Do You Feel Safe in your Home?: Yes Lack of Transportation: No Lack of Food: Never True Current Housing: I Have Housing Concerned About Future Housing: No Difficulty Paying Gas/Electric Bills: No Difficulty Paying for Meds: No Currently Unemployed: No Education: High School Diploma/GED Difficulty w/ Childcare or Family Care: No Living arrangements: with family Exam Narrative: GENERAL: Well appearing, well-nourished, non-toxic, in no acute distress. HEAD: Normocephalic, atraumatic. RESPIRATORY: Airway patent, respirations nonlabored. Clear to auscultation bilaterally, no rales, rhonchi, wheezing. CARDIOVASCULAR: Regular rate and rhythm without murmurs, rubs, or gallops. ABDOMINAL: Soft, mild diffuse tenderness throughout abdomen, no significant focal tenderness. Nondistended. Normoactive BS. MUSCULOSKELETAL: Moves all extremities. No gross deformities. SKIN: Warm, dry, normal color. NEURO: A&O X3. Speech clear. PSYCHIATRIC: Appropriate mood and affect. Normal interaction. Course Vital Signs Vital signs: Vital Signs Temperature 97.9 F 07/14/24 09:09 Pulse Rate 93 07/14/24 09:09 Respiratory Rate 17 07/14/24 09:09 Blood Pressure 115/86 07/14/24 09:09 Pulse Oximetry 98 07/14/24 09:09 Oxygen Delivery Room Air 07/14/24 09:09 Temperature 97.9 F 07/14/24 09:09 Pulse Rate 86 07/14/24 11:24 Respiratory Rate 15 07/14/24 11:24 Blood Pressure 113/71 07/14/24 11:24 Pulse Oximetry 98 07/14/24 11:24 Oxygen Delivery Room Air 07/14/24 09:09 MDM - Recheck/Abnormal Lab/Rx MDM Narrative Medical decision making narrative: Patient presented to ED with hyperglycemia. Insulin dependent diabetic. Concern for DKA. Also reporting diarrhea, abdominal pain today. Vital signs are stable upon arrival. Patient is in no acute distress upon my evaluation. Initial blood sugar was 275. Laboratory studies were obtained and fairly reassuring. No leukocytosis. Likely mild hemoconcentration noted on CBC with elevated hemoglobin. CMP with blood sugar of 250, normal anion gap. Bicarb minimally low at 20. Beta hydroxybutyrate is within normal range. There is 1+ ketones noted in urine stable, but patient is not meeting criteria for DKA this time. Fluids are ongoing. No signs of infection within urine sample. There is some blood within urine sample, which patient reports is chronic for her. Has been evaluated by urology in the past. Otherwise stable electrolytes and stable kidney function on CMP. Viral swabs are negative. CT scan of abdomen/pelvis was obtained and without acute findings. 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 Patient given 2 L of fluid in the ED. Blood sugar on repeat evaluation down into the 180s. Patient is feeling significantly better. Able to tolerate PO intake. Feel she is safe for discharge home at this time. Advised patient to continue insulin regimen, continue to monitor blood sugars at home. Recommended close follow-up with primary care doctor or janitor caretaker for further medical management. Advised patient to stay well hydrated at home, will prescribe Zofran/Bentyl for home use for possible gastroenteritis. Discussed strict return precautions. Patient in agreement with plan and feels comfortable w/ discharge home. Discharged in stable condition. Medical Records Attestation: I reviewed the patient's medical records. Lab Data Attestation: I reviewed the patient's lab results. 07/14/24 09:34 07/14/24 09:34 Labs: Lab Results 07/14/24 07/14/24 07/14/24 Range/Units 09:20 09:34 09:47 WBC 6.7 (4.5-10.0) K/mm3 RBC 5.26 (4.2-5.4) M/mm3 Hgb 15.3 H (12.0-15.0) g/dL Hct 46.9 (37.0-47.0) % MCV 89.2 (80-100) fl MCH 29.1 (26-34) pg MCHC 32.6 (32-36) g/dl RDW 12.5 (11.5-14.5) % Plt Count 131 L (150-375) k/mm3 MPV 11.9 H (7.4-10.4) fl Immature Gran % (Auto) 0.3 (0-0.5) % Neut % (Auto) 65.8 (45.5-73.1) % Lymph % (Auto) 22.5 (18.3-44.2) % [place] % (Auto) 9.3 H (2.6-8.5) % Eos % (Auto) 1.8 (0-4.4) % Baso % (Auto) 0.3 (0.2-1.2) % Lymph # (Auto) 1.50 (0.9-3.2) K/mm3 [place] # (Auto) 0.6 (0.1-0.6) K/mm3 Eos # (Auto) 0.1 (0-0.3) K/mm3 Baso # (Auto) 0.0 (0.0-0.1) K/mm3 Abs Immat Gran (auto) 0.02 (0.00-0.031) K/mm3 Absolute Neuts (auto) 4.4 (1.3-6.7) K/mm3 Absolute Nucleated RBC 0.000 (0.0-0.012) K/mm3 Nucleated RBC % 0.0 (0.0-0.2) % Sodium 137 (137-145) mmol/L Potassium 4.6 (3.4-5.0) mmol/L Chloride 107 (98-107) mmol/L Carbon Dioxide 20 L (22-30) mmol/L Anion Gap 10 (4-12) mmol/L BUN 12 (7-17) mg/dL Creatinine 0.50 L (0.7-1.0) mg/dL Estim Creat Clear Calc 144 ml/min Estimated GFR > 60 (59 - ) Glucose 250 H (65-110) mg/dL POC Capillary Glucose 275 H (65-105) mg/dl Hemoglobin A1c 6.9 H (<5.7) % Calcium 9.4 (8.4-10.2) mg/dL Phosphorus 3.0 (2.5-4.5) mg/dL Magnesium 1.8 (1.6-2.3) mg/dL Total Bilirubin 0.6 (0.2-1.3) mg/dL AST 26 (14-36) U/L ALT 25 (6-35) U/L Alkaline Phosphatase 97 (38-126) U/L Total Protein 9.0 H (6.3-8.2) g/dL Albumin 4.9 (3.5-5.1) g/dL Beta-Hydroxybutyrate/Acetoacetate 0.11 (0.02-0.27) mmol/L Urine Color Yellow (Yellow) Urine Appearance Clear (Clear) Urine pH 6.5 (5.0-9.0) Ur Specific Blanco 1.042 H (1.001-1.035) Urine Protein 1+ H (Negative) mg/dL Urine Glucose (UA) 3+ H (Negative) mg/dL Urine Ketones 1+ H (Negative) mg/dL Ur Blood (Man) 3+ H (Negative) Urine Nitrate Negative (Negative) Urine Bilirubin Negative (Negative) Urine Urobilinogen 0.2 (<2.0) mg/dL Leukocyte Esterase Rfl Negative (Negative) TIARA/UL Urine RBC 21-50 H (0-2) /hpf Urine WBC 0-5 (0-3) /hpf Ur Squamous Epith Cells None seen (Few) /hpf Urine Bacteria Rare /hpf Urine Casts 0-2 POC Urine HCG, Qual (Negative) Influenza A (RT-PCR) (Negative) Influenza B (RT-PCR) (Negative) RSV (RT-PCR) (Negative) SARS-CoV-2 RNA (RT-PCR) (Negative) 07/14/24 07/14/24 07/14/24 Range/Units 09:52 10:03 11:29 WBC (4.5-10.0) K/mm3 RBC (4.2-5.4) M/mm3 Hgb (12.0-15.0) g/dL Hct (37.0-47.0) % MCV (80-100) fl MCH (26-34) pg MCHC (32-36) g/dl RDW (11.5-14.5) % Plt Count (150-375) k/mm3 MPV (7.4-10.4) fl Immature Gran % (Auto) (0-0.5) % Neut % (Auto) (45.5-73.1) % Lymph % (Auto) (18.3-44.2) % Bart[place] % (Auto) (2.6-8.5) % Eos % (Auto) (0-4.4) % Baso % (Auto) (0.2-1.2) % Lymph # (Auto) (0.9-3.2) K/mm3 [place] # (Auto) (0.1-0.6) K/mm3 Eos # (Auto) (0-0.3) K/mm3 Baso # (Auto) (0.0-0.1) K/mm3 Abs Immat Gran (auto) (0.00-0.031) K/mm3 Absolute Neuts (auto) (1.3-6.7) K/mm3 Absolute Nucleated RBC (0.0-0.012) K/mm3 Nucleated RBC % (0.0-0.2) % Sodium (137-145) mmol/L Potassium (3.4-5.0) mmol/L Chloride (98-107) mmol/L Carbon Dioxide (22-30) mmol/L Anion Gap (4-12) mmol/L BUN (7-17) mg/dL Creatinine (0.7-1.0) mg/dL Estim Creat Clear Calc ml/min Estimated GFR (59 - ) Glucose (65-110) mg/dL POC Capillary Glucose 183 H (65-105) mg/dl Hemoglobin A1c (<5.7) % Calcium (8.4-10.2) mg/dL Phosphorus (2.5-4.5) mg/dL Magnesium (1.6-2.3) mg/dL Total Bilirubin (0.2-1.3) mg/dL AST (14-36) U/L ALT (6-35) U/L Alkaline Phosphatase (38-126) U/L Total Protein (6.3-8.2) g/dL Albumin (3.5-5.1) g/dL Beta-Hydroxybutyrate/Acetoacetate (0.02-0.27) mmol/L Urine Color (Yellow) Urine Appearance (Clear) Urine pH (5.0-9.0) Ur Specific Blanco (1.001-1.035) Urine Protein (Negative) mg/dL Urine Glucose (UA) (Negative) mg/dL Urine Ketones (Negative) mg/dL Ur Blood (Man) (Negative) Urine Nitrate (Negative) Urine Bilirubin (Negative) Urine Urobilinogen (<2.0) mg/dL Leukocyte Esterase Rfl (Negative) TIARA/UL Urine RBC (0-2) /hpf Urine WBC (0-3) /hpf Ur Squamous Epith Cells (Few) /hpf Urine Bacteria /hpf Urine Casts POC Urine HCG, Qual Negative (Negative) Influenza A (RT-PCR) Negative (Negative) Influenza B (RT-PCR) Negative (Negative) RSV (RT-PCR) Negative (Negative) SARS-CoV-2 RNA (RT-PCR) Negative (Negative) Imaging Data Attestation: I personally reviewed and interpreted this imaging study as follows: Radiologist's impression: ITS Impressions Abdomen/Pelvis CT 07/14/24 10:51 IMPRESSION: 1. No acute intra-abdominal/pelvic process. 2. 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 Discharge Plan Discharge Clinical Impression: Acute hyperglycemia, Nausea, Diffuse abdominal pain Patient Disposition: Home, Self-Care Condition: Stable Instructions: Antibiotic Form, Dehydration (ED), Gastroenteritis (ED), Diabetic Hyperglycemia (ED) Additional Instructions: Utilize zofran as needed for further nausea. Recommend Tylenol/Bentyl as needed for further abdominal discomfort. Increase fluid intake. Recommend electrolyte rich fluids, gatorade, pedialyte, body armour. Recommend clear liquids or bland diet until symptoms improve, such as bananas, rice, applesauce, toast, or crackers. Continue normal insulin regimen. Continue to monitor blood sugars. Follow up closely with your primary care doctor/janitor caretaker for further evaluation. Return to the ED if you experience worsening or severe symptoms, persistently elevated blood sugars, unable to keep down food or drink, severe pain, fevers, rectal bleeding, vomiting blood, or any other symptoms of concern. Patient Language: Marshallese Prescriptions: New dicyclomine 20 mg tablet 20 mg PO TID PRN (Reason: Abdominal Discomfort) Qty: 15 0RF ondansetron 4 mg tablet,disintegrating 4 mg PO Q8H PRN (Reason: nausea and vomiting) Qty: 15 0RF No Action (DME) lancets [OneTouch Delica Plus Lancet] 30 gauge misc MISCELLANEOUS Nexplanon 68 mg Implant 1 implant SUBDERMAL ONCE Rx Instructions: as a single dose methocarbamol 500 mg tablet 500 mg PO Q6H PRN (Reason: muscle pain/spasm) Qty: 30 0RF ibuprofen 600 mg tablet 600 mg PO Q6H PRN (Reason: pain) Qty: 30 0RF famotidine [Pepcid] 20 mg tablet 20 mg PO BID 30 Days Qty: 60 0RF simethicone 125 mg capsule 125 mg PO QID PRN (Reason: gas pain/bloating, belching) Qty: 30 0RF Rybelsus 14 mg tablet 14 mg PO DAILY Qty: 90 1RF Farxiga 5 mg tablet 5 mg PO DAILY Qty: 90 0RF (DME) Dexcom G7 Sensor Device MISCELLANEOUS Qty: 9 3RF Rx Instructions: every 10 days lisinopril 2.5 mg tablet See Rx Instructions .ROUTE .COMPLEX Qty: 90 0RF Dose Instruction: TAKE ONE TABLET BY MOUTH EVERY DAY IN THE MORNING FOR BLOOD PRESSURE Rx Instructions: TAKE ONE TABLET BY MOUTH EVERY DAY IN THE MORNING FOR BLOOD PRESSURE (DME) pen needle, diabetic [Comfort EZ Pen Paxton] 32 gauge x 3/16 needle See Rx Instructions .Route Qty: 500 12RF Rx Instructions: two times daily Baqsimi 3 mg/actuation spray,non-aerosol 3 mg intranasal ONCE Qty: 2 0RF Rx Instructions: as a single dose hyoscyamine sulfate [Levsin] 0.125 mg tablet 0.125 mg PO QID Qty: 14 0RF omeprazole 20 mg capsule,delayed release(DR/EC) 20 mg PO DAILY 14 Days Qty: 14 0RF cyclobenzaprine 10 mg tablet 10 mg PO TID PRN (Reason: muscle spasm) Qty: 20 0RF naproxen 375 mg tablet 375 mg PO BID Qty: 14 0RF amoxicillin-pot clavulanate 875-125 mg tablet 1 tablet PO Q12H Qty: 14 0RF (DME) pen needle, diabetic [Comfort EZ Pen Paxton] 33 gauge x 3/16 needle See Rx Instructions .Route Qty: 400 11RF Rx Instructions: 4 times a day (DME) lancets [Comfort EZ Lancets] 28 gauge misc See Rx Instructions .Route Qty: 400 0RF Rx Instructions: 3 times a day Lyumjev KwikPen U-100 Insulin 100 unit/mL insulin pen 12 unit subcut .before meals MDD 38 Qty: 60 0RF (DME) Dexcom G7 Stevedoring Supervisor Misc MISCELLANEOUS Qty: 1 0RF Rx Instructions: one carbon paper coating machine setter insulin glargine [Lantus Solostar U-100 Insulin] 100 unit/mL (3 mL) insulin pen 20 unit subcut BID Qty: 45 3RF Rx Instructions: 20 units twice daily Follow-up/Referrals: Jayne,Oladele, M.D. [Primary Care Provider] - Stand Alone Forms: Work/School Release IP Time of Disposition: 11:46
[2024-07-14 11:24] VITALS: BP 113/71; PULSE 86; RESP 15; O2SAT 98
[2024-07-14 11:36] LABS: Glucose Point of Care 183 mg/dl (65-105)
--- OUTSIDE RECORDS SUMMARY | 2024-07-21 19:02 | XMS_ITS | Data Portability ---
Author Organization [facility] [employer], Main Office Address [address] [place] [address] Assessment No assessment recorded. Plan of Treatment Reminders Order Date Submit Date Provider Last Modified By Organization Details Last Modified Time Details Appointments None recorded . Lab urinalys is, dipstick [email or web address], [address], [address], 13:28:23 Referral None recorded . Procedures cystosco py (PROC) 2022 023 [email or web address] Not available 13:03:23 Surgeries None recorded . Imaging None recorded . Medication Orders ciproflo xacin 500 mg tablet 2022 023 [email or web address] Not available 14:27:00 Patient TargetsNo targets recorded. Patient InstructionsNo instructions recorded. Reason for Referral None Reported. Results Created Date Observation Date Name Description Value Unit Range Abnormal Flag Note LastModifiedBy Organization Detail LastModifiedTime 01/19/2001/18/2023 urina lysis , dipst ick Leukocytes (reference range: negative lennox/??l) Negati ve Not Available [address], [address], [address], 01/18/2023 13:05:23 01/19/20 23 01/18/2023 urina lysis , dipst ick Nitrite (reference rage: negative mg/dl) negati ve Not Available [address], [address], [address], 01/18/2023 13:05:23 01/19/20 23 01/18/2023 urina lysis , dipst ick Urobilinogen (reference range: 0.2-1 mg/dl) 0.2 Not Available [address], [address], 01/18/2023 13:05:23 01/19/2001/18/2023 urina lysis , dipst ick Protein (reference range: negative mg/dl) Modera te Not Available [address], [address], 01/18/2023 13:05:23 01/19/2001/18/2023 urina lysis , dipst ick pH (reference range: 5-7) 6.0 Not Available [address], [address], 01/18/2023 13:05:23 01/19/2001/18/2023 urina lysis , dipst ick Blood (reference range: negative Thomas/??l) Modera te Not Available [address], [address], 01/18/2023 13:05:23 01/19/2001/18/2023 urina lysis , dipst ick Specific [place] (reference range: 1.005-1.030) 1.020 Not Available [address], [address], 01/18/2023 13:05:23 01/19/2001/18/2023 urina lysis , dipst ick Ketone (reference range: negative mg/dl) Small Not Available [address], [address], 01/18/2023 13:05:23 01/19/20 23 01/18/2023 urina lysis , dipst ick Bilirubin (reference range: negative mg/dl) Negati ve Not Available [address], [address], 01/18/2023 13:05:23 01/19/20 23 01/18/2023 urina lysis , dipst ick Glucose (reference range: negative mg/dl) 500 Not Available [address], [address], 01/18/2023 13:05:23 01/19/20 23 01/18/2023 urina lysis , dipst ick Appearance Clear Not Available [address], [address], 01/18/2023 13:05:23 01/19/20 23 01/18/2023 urina lysis , dipst ick Color Yellow Not Available [address], [address], 01/18/2023 13:05:23 Result Notes None recorded. Problems Name Problem SNOMED Code Status Onset Date Resolution Date Notes Provider Name and Address Organization Details Recorded Time Metabolic syndrome X 019064104 Active 2021 Not Available [facility] 3 21:00:28 Headache 11678625 Active 2021 Not Available [facility] 3 21:00:28 Disorder of lipid metabolism 475169172 Active 2021 Not Available [facility] 3 21:00:28 Hypertriglyce ridemia 914837160 Active 2021 Not Available [facility] 3 21:00:28 Bipolar I disorder 406399389 Active 2021 Not Available [facility] 3 21:00:28 Obesity 668862651 Active 2021 Not Available [facility] 3 21:00:28 Type 1 diabetes mellitus 37181922 Active 2021 Not Available [facility] 3 21:00:28 Hyperlipidemi a 45959271 Active 2021 Not Available [facility] 3 21:00:28 Irregular periods 22730420 Active 2021 Not Available [facility] 3 21:00:28 Hyperglycemia 97785169 Active 2021 Not Available [facility] 3 21:00:28 Polycystic bilateral ovaries 398781577 Active 2021 Not Available [facility] 3 21:00:28 Herpes simplex 12515187 Active 2021 Not Available [facility] 3 21:00:29 Microscopic hematuria 553172481 Active 2022 JOSEPH Liu, [place] [employer] [facility] 3 13:14:20 Recurrent urinary tract infection 432217041 Active 2022 JOSEPH Liu, [facility] [employer] [facility] 3 11:37:13 Problem Notes None recorded. Procedures Surgical History Date Name Laterality Status Provider Name and Address Organization Details Recorded Time 3 Cystoscopy (female) completed Anthony Smith MD [address] [place] [address], [address], [place] [facility] [employer] [facility] 02/08/2023 12:18:37 Imaging Results None recorded. Procedure Notes None recorded. Medical Equipment None Reported. Allergies No known drug allergies Medications Name Sig Start Date Stop Date Status Note LastModified by Organization Details LastModified Time cyclobenzap rine 10 mg tablet TAKE ONE TABLET BY MOUTH THREE TIMES DAILY NEEDED FOR MUSCLE SPASMS 01/18 completed Not Available Not Available Not Available amoxicillin 500 mg capsule TAKE ONE CAPSULE BY MOUTH EVERY 8 HOURS FOR INFECTION 01/18 completed Not Available Not Available Not Available Anti-Diarrh eal (loperamide ) 2 mg tablet TAKE TWO TABLETS BY MOUTH AFTER THE first loose bowel movement AND ONE tablet AFTER each loose bowel movement AFTER HEART first DOSE has been taken. DO not exceed FOUR tablets in 24 hours 01/18 completed Not Available Not Available Not Available fluconazole 100 mg tablet TAKE ONE TABLET BY MOUTH EVERY DAY FOR INFECTION active Not Available Not Available No t Available naproxen 375 mg tablet active Not Available Not Available Not Available ibuprofen 800 mg tablet TAKE ONE TABLET BY MOUTH THREE TIMES DAILY NEEDED FOR PAIN 01/18 completed Not Available Not Available Not Available ofloxacin 0.3 % eye drops INSTILL 2 DROPS IN EACH EYE FOUR TIMES DAILY FOR 7 DAYS active Not Available Not Available No t Available cephalexin 250 mg capsule TAKE ONE TABLET BY MOUTH EVERY 6 HOURS FOR 7 DAYS 01/18 completed Not Available Not Available Not Available metronidazo le 0.75 % (37.5 mg/5 gram) vaginal gel INSERT ONE APPLICATO RFUL VAGINALLY EVERY DAY AT BEDTIME FOR 5 DAYS 01/18 completed Not Available Not Available Not Available ciprofloxac in 500 mg tablet Take 1 tablet by oral route. 2022 active Not Available Not Available Not Avai lable sulfamethox azole 800 mg-trimetho prim 160 mg tablet TAKE ONE TABLET BY MOUTH EVERY TWELVE HOURS UNTIL ALL TAKEN active Not Available Not Available No t Available omeprazole 40 mg capsule,del ayed release TAKE 1 CAPSULE BY MOUTH DAILY 15 TO 30 MINUTES BEFORE BREAKFAST active Not Available Not Available No t Available famotidine 20 mg tablet TAKE 1 TABLET BY MOUTH TWICE DAILY active Not Available Not Available No t Available methocarbam ol 750 mg tablet TAKE ONE TABLET BY MOUTH THREE TIMES DAILY FOR MUSCLE TIGHTNESS 01/18 completed Not Available Not Available Not Available dicyclomine 20 mg tablet TAKE ONE TABLET FOUR TIMES DAILY active Not Available Not Available No t Available cephalexin 500 mg capsule TAKE 1 CAPSULE BY MOUTH EVERY 12 HOURS FOR 4 DAYS active Not Available Not Available No t Available pantoprazol e 40 mg tablet,nenita yed release TAKE ONE TABLET BY MOUTH EVERY MORNING FOR 4 WEEKS active Not Available Not Available No t Available hyoscyamine sulfate 0.125 mg tablet TAKE 1 TABLET BY MOUTH FOUR TIMES DAILY active Not Available Not Available No t Available omeprazole 20 mg capsule,del ayed release TAKE 1 CAPSULE BY MOUTH DAILY FOR 14 DAYS active Not Available Not Available No t Available alcohol swabs USE TO CLEAN THE INJECTION SITE OF INSULIN AND WHEN CHECKING BLOOD SUGAR active Not Available Not Available No t Available acyclovir 200 mg capsule Take 1 capsule by oral route. 01/18 completed Not Available Not Available Not Available ondansetron 4 mg disintegrat ing tablet DISSOLVE 1 TABLET ON THE TONGUE EVERY 6 HOURS NEEDED FOR NAUSEA OR VOMITING active Not Available Not Available No t Available metformin ER 500 mg tablet,exte nded release 24 hr TAKE 4 TABLETS BY MOUTH EVERY DAY DIRECTED FOR DIABETES 02/08 completed Not Available Not Available Not Available lisinopril 2.5 mg tablet TAKE ONE TABLET BY MOUTH EVERY DAY IN THE MORNING FOR BLOOD PRESSURE active Not Available Not Available No t Available dicyclomine 10 mg capsule TAKE ONE CAPSULE BY MOUTH THREE TIMES DAILY 01/18 completed Not Available Not Available Not Available naproxen 500 mg tablet TAKE ONE TABLET BY MOUTH TWICE DAILY NEEDED FOR PAIN 01/18 completed Not Available Not Available Not Available amoxicillin 875 mg-potassiu m clavulanate 125 mg tablet TAKE ONE TABLET BY MOUTH EVERY TWELVE HOURS FOR 7 DAYS active Not Available Not Available No t Available nitrofurant oin monohydrate /macrocryst als 100 mg capsule TAKE ONE CAPSULE EVERY TWELVE HOURS UNTIL ALL TAKEN active Not Available Not Available No t Available Januvia 100 mg tablet TAKE ONE TABLET BY MOUTH EVERY DAY FOR DIABETES active Not Available Not Available No t Available Lantus Solostar U-100 Insulin 100 unit/mL (3 mL) subcutaneou s pen INJECT 20 UNITS SUBCUTANE OUS TWICE DAILY active Not Available Not Available No t Available Nexplanon 68 mg subdermal implant Inject by subcutane ous route. 2021 active Not Available Not Available Not Avai lable OneTouch Verio test strips TEST FOUR TIMES DAILY active Not Available Not Available No t Available Farxiga 5 mg tablet TAKE ONE TABLET BY MOUTH EVERY DAY IN THE MORNING FOR DIABETES active Not Available Not Available No t Available Jardiance 25 mg tablet TAKE ONE TABLET BY MOUTH EVERY DAY active Not Available Not Available No t Available Trulicity 1.5 mg/0.5 mL subcutaneou s pen injector INJECT 1.5ML UNDER THE SKIN EVERY WEEK active Not Available Not Available No t Available Trulicity 0.75 mg/0.5 mL subcutaneou s pen injector INJECT 0.75MG UNDER THE SKIN EVERY WEEK DIRECTED active Not Available Not Available No t Available TRUEplus Pen Needle 31 gauge x 5/16 USE FOUR TIMES DAILY active Not Available Not Available No t Available TRUEplus Pen Needle 31 gauge x 3/16 INJECT TWICE DAILY active Not Available Not Available No t Available metformin ER 500 mg tablet,ext rel 24 hr-blood sugar diagnostic strips 07/04 completed Not Available Not Available Not Available OneTouch Delica Plus Lancet 33 gauge TEST FOUR TIMES DAILY active Not Available Not Available No t Available OneTouch Delica Plus Lancet 30 gauge USE TO CHECK BLOOD SUGAR THREE TIMES DAILY active Not Available Not Available No t Available Rybelsus 7 mg tablet TAKE 1 TABLET BY MOUTH EVERY DAY active Not Available Not Available No t Available Rybelsus 3 mg tablet TAKE 1 TABLET BY MOUTH DAILY active Not Available Not Available No t Available OneTouch Verio Reflect Meter USE TO CHECK BLOOD SUGAR THREE TIMES DAILY active Not Available Not Available No t Available Gvoke HypoPen 2-Pack 1 mg/0.2 mL subcutaneou s auto-inject or INJECT 1mg (0.2ml) UNDER THE SKIN as single dose,may REPEAT ONCE AFTER 15 minutes active Not Available Not Available No t Available Lyumroc KwikPen U-100 Insulin 100 unit/mL subcutaneou s INJECT 12 UNITS SUBCUTANE OUS BEFORE MEALS. MAX DAILY DOSE 38 UNITS active Not Available Not Available No t Available Dexcom G7 Carpet Cleaner DIRECTED active Not Available Not Available No t Available Dexcom G7 Sensor device CHANGE EVERY 10 DAYS active Not Available Not Available No t Available Vitals Date Recorded Oxygen saturation Oxygen saturation in Arterial blood by Pulse oximetry Body weight Body temperature Body mass index (BMI) Body height Heart rate Systolic blood pressure Diastolic blood pressure Provider Name and Address Organization Details Last Updated DateTime 3 99 % 99 % 453.59 g 98.4 [degF] 0.2 kg/m2 165.1 cm 83 /min 136 mm[Hg] 98 mm[Hg] HAILEY Carreno [place] [facility] [place] [employer] [facility] 3 13:05:19 Date Recorded Body height Provider Name an d Address Organization Details Last Updated DateTime 02/08/2023 165.1 cm Ellyn Robins [place] [facility] [place] [employer] [facility] 02/08/2023 11:36:15 Social History Question Answer Notes LastModified by [employer] Details LastModified Time Tobacco Smoking Status Never Smoker Not Available [facility] 09/13/2022 20:58:42 Do You Have An Advance Directive? No [id number] Information not available 09/13/2022 What Is Your Level Of Alcohol Consumption? Occasional [id number] Information not available 09/13/2022 What Is Your Level Of Caffeine Consumption? None Information not available 01/18/2023 Which Illicit Or Recreational Drugs Have You Used? Marijuana [id number] Information not available 09/13/2022 Are There Any Guns Present In Your Home? No [id number] Information not available 09/13/2022 Have You Ever Been Counseled For Unhealthy Alcohol Use? No [id number] Information not available 09/13/2022 Do You Have Smoke And Carbon Monoxide Detectors In Your Home? Yes [id number] Information not available 09/13/2022 Do You Use Any Illicit Or Recreational Drugs? Yes [id number] Information not available 09/13/2022 Do You Use Sunscreen Routinely? No [id number] Information not available 09/13/2022 Has Tobacco Cessation Counseling Been Provided? No [id number] Information not available 09/13/2022 Have You Used IV Drugs? No Information not available 01/18/2023 Do You Or Have You Ever Used Any Other Forms Of Tobacco Or Nicotine? No [id number] Information not available 09/13/2022 Sex: Unknown Functional Status Question Answer Note LastModified by [employer] Details LastModified Time What is your exercise level? Occasional [id number] Information not available 09/13/2022 Mental Status None recorded. Family History Relationship Description Onset Age of this Age Resolved Age Notes LastModified by Organization Details LastModified Time Brother Bipolar disorder [id number] Not available 09/13/2022 20:59:03 Mother Hypertensive disorder [email or web address] Not available 2022 13:09:29 Medical History Condition Response CYSTITIS N BLINDNESS N RHEUMATIC FEVER N KIDNEY STONES N BLADDER PROBLEMS N Enlarged Prostate N MRSA N LUNG DISEASE/DISORDER N HISTORY OF DRUG ABUSE N RADIATION / CHEMOTHERAPY N COPD N BLOOD DISEASES N SHINGLES N BOWEL PROBLEMS N DEPRESSION (INCLUDING POST ) Y FAILED BACK SYNDROME N STROKE/TIA N THYROID DISEASE N BENIGN PROSTATIC HYPERPLASIA N OBESITY N GERD/NAUSEA N ANEURYSM N URINARY/BLADDER/KIDNEY PROBLEMS N Increased Urination N CORONARY ARTERY DISEASE (CAD) N Do you have Advance directive? N USE OF BLOOD THINNERS N EMPHYSEMA N GASTROINTESTINAL DISORDER N GASTROINTESTINAL BLEEDING N BLOOD CLOTS N Difficulty Urinating N ASTHMA N Abdominal Pain N CATARACTS N ARTERIAL INSUFFICIENCY N ERECTILE DYSFUNCTION N GI PROBLEMS N Low Testosterone N AIDS/HIV N LIVER DISEASE N MALE HYPOGONADISM N HYPERTENSION N TOURETTE'S N BLOOD TRANSFUSION N ANEMIA/BLOOD DISORDER N TUBERCULOSIS N GLAUCOMA N SLEEP APNEA N BACK INJECTIONS N INFECTIOUS DISEASE N HEART ARRHYTHMIA N PROSTATE N INSOMNIA N ESRD N HIGH CHOLESTEROL / HYPERLIPIDEMIA N HYPERTHYROIDISM N UTI N PVD N EDEMA N HYPOTHYROIDISM N BACK / NECK PROBLEMS N HAVE YOU BEEN HOSPITALIZED OR SEEN IN [facility] IN THE PAST YEAR ? N DIALYSIS N POLYCYSTIC OVARIES N OSTEOPOROSIS N ARTHRITIS N NO SIGNIFICANT PAST MEDICAL HISTORY N DIABETES, TYPE N VON WILLIBRAND'S DISEASE N P[place]INSON N incontinence N POST LAMINECTOMY SYNDROME N HEPATITIS / LIVER DISEASE N GOUT N SLEEP DISORDER N ALZHEIMER'S DISEASE N HERPES N HEADACHES/MIGRAINES N SEIZURES/EPILEPSY N PACEMAKER N HEART MURMUR N DIZZINESS N KIDNEY DISEASE N HEART DISEASE/HEART PROBLEMS N MULTIPLE SCLEROSIS N NEUROPSYCHOLOGICAL N CANCER: SPECIFY N ANESTHESIA COMPLICATIONS N ATRIAL FIBRILLATION N AUTOIMMUNE DISEASE N Gynecological HistoryNo gynecological history recorded. Obstetrics History GPAL:G 0 P 0 0 0 0 Past Encounters Encounter ID Performer Location Encounter Start Date Encounter Closed Date Diagnosis/Indication Diagnosis SNOMED-CT Code Diagnosis ICD10 Code Diagnosis Note [id number] Anthony Smith MD [facility] [address], [address] [address] 01/18/2023 12:50:19 01/18/2023 13:32:55 Microscopic hematuria 135516327 R31.29 will need cystoscopy . CT normal. [id number] Anthony Smith MD [facility] [address], [address] [address] 02/08/2023 11:27:22 02/08/2023 12:19:16 Microscopic hematuria 851249074 R31.29 Hematuria evaluation negativefo llow up in a year. Health Concerns Section Related Observation LastModified by Organization Detai ls LastModified Time None Recorded Concern Status LastModified by Organization Details LastModified Time None Recorded Advance Directives Directive N: Payers Encounter Date Sequence Insurance Name Policy Number Policy Angel Covered Member ID Angel Member ID Guarantor Name 01/18/2023 1 [facility] (MEDICAID HMO) [id number] Sarah Amandeep [id number] Sarah Bernstein 02/08/2023 1 [facility] (MEDICAID HMO) [id number] Sarah Bernstein [id number] Sarah Bernstein Notes Date Note Type Note Provider Name and Address Organization Details Recorded Time 01/18/2023 text/html 27 yo female wit h DM with hematuria. She gets frequent uti's and has been seeing blood after wiping. Some dysuria after last uti. NCCT shows duplication. Anthony Smith MD [address], [facility] [address], [place], [address], [place] [facility] [employer] [facility] 01/18/2023 13:28:47 02/08/2023 text/html follow up for microhematuria. 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 Anthony Smith MD [address], [address], [place], [address], [employer] [facility] 02/08/2023 12:19:34 OBGyn Episode No OBEpisode recorded.
== END 2024-07-14 11:55 | disposition home or self-care (01) ==
PROVIDERS: Emergency Provider Physician Assistant; PCP Internal Medicine Infectious Disease
DX: E11.65 Type 2 diabetes mellitus with hyperglycemia (principal); R10.9 Unspecified abdominal pain; R11.0 Nausea; Z20.822 Contact with and (suspected) exposure to COVID-19; E28.2 Polycystic ovarian syndrome; Q62.5 Duplication of ureter; Z79.4 Long term (current) use of insulin; Z79.84 Long term (current) use of oral hypoglycemic drugs; Z79.899 Other long term (current) drug therapy
CPT/HCPCS: 36415; 74177; 80053; 81001; 81025; 82010; 82948; 83036; 83735; 84100; 85025; 87637; 96361; 96365; 96375; 99284; J2405; J7030; Q9967

== ENCOUNTER 2024-12-29 08:12 | Emergency (ER) | payer SELFPAY ==
[2024-12-29 08:21] VITALS: BP 132/85; PULSE 92; RESP 16; TEMP 36.3; O2SAT 100
--- NOTE | 2024-12-29 08:42 | ED.NAVMDI ---
HPI - Nausea/Vomiting/Diarrhea General Chief complaint: Nausea/Vomiting/Diarrhea Stated complaint: Nausea/Diarrhea Time Seen by Provider: 12/29/24 08:13 Source: patient Mode of arrival: ambulatory Limitations: no limitations History of Present Illness HPI Narrative: Patient is a 29-year-old male who presents to the clinic with diarrhea, nausea, and left sided abdomen pain since last night. She is a diabetic and has been out of her semaglutide for a week. She is monitoring her blood sugars to her Dexcom. Her sugars have been ranging around 220. She also uses insulin. She took her fast as acting before she came in. Patient has a history of IBS. She has not been taking anything [id number]. Denies any body aches, fevers, or vomiting. Related Data Home Medications ?Medication ?Instructions ?Recorded ?Confirmed ?Last Taken ?Type etonogestrel 68 mg subdermal 1 implant subdermal ONCE 01/05/23 08/05/24 Unknown History implant (Nexplanon) Allergies Allergy/AdvReac Type Severity Reaction Status Date / Time No Known Allergies Allergy Verified 12/29/24 08:29 Review of Systems Review of Systems: CONSTITUTIONAL: Denies body aches, fever, chills, or sweats. EYES: Denies visual changes, redness, or discharge. ENT: Denies rhinorrhea, congestion, sore throat, or otalgia. CARDIOVASCULAR: Denies chest pain, palpitations, or edema. RESPIRATORY: Denies cough or dyspnea. GASTROINTESTINAL: Reports abdominal pain, nausea, and diarrhea. Denies vomiting or CVA Tenderness. GENITOURINARY: Denies dysuria or hematuria. SKIN: Denies rash, itching, or wounds. MUSCULOSKELETAL: Denies back pain, joint pain, or myalgia. NEUROLOGIC: Denies headache, numbness, tingling, or weakness. PSYCH: Denies depression or anxiety. All systems reviewed & are unremarkable except as noted in HPI and below PMFSH Past Medical History Medical History Insulin dependent type 2 diabetes mellitus Stomach problems possible gastritis PCOS (polycystic ovarian syndrome) Fatty liver Herpes Surgical History Surgical History No significant past surgical history Family History Family History Grandparent Cancer spread everywhere, unknown cause Father Cerebrovascular accident Mother Hypertension Thyroid disorder Arthritis Social History Social History Smoking status: Never smoker Alcohol intake: current Alcohol use details: occasionally Substance use: current Substance use type: marijuana Do You Feel Safe in your Home?: Yes Lack of Transportation: No Lack of Food: Never True Current Housing: I Have Housing Concerned About Future Housing: No Difficulty Paying Gas/Electric Bills: No Difficulty Paying for Meds: No Currently Unemployed: No Education: High School Diploma/GED Difficulty w/ Childcare or Family Care: No Living arrangements: with family Comments At time of signature, I have reviewed and agree with nursing past medical, surgical, social and family history unless otherwise noted. Please see nursing chart for further information. There is no relevant family history pertinent to the presenting complaint. Exam Narrative: GENERAL: Well-appearing, well-nourished, and in no acute distress. HEAD: Normocephalic, atraumatic. EYES: PERRLA, conjunctivae clear, and EOMI. ENT: Mucous membranes moist. NECK: Supple. No lymphadenopathy CHEST: Speaks in full sentences. No respiratory distress. HEART: Regular rate and rhythm. ABDOMEN: Soft, flat, nondistended. No guarding, rebound tenderness, or rigid. No pulsatile masses. Bowel sounds x4 No organomegaly. Negative Jo?s sign. No periumbilical tenderness. No Supra public tenderness or distension. Good femoral pulses bilaterally. No hernia noted. No scars or surface trauma. Mild left-sided abdominal tenderness with palpation. SKIN: Warm, dry, no rash. NEURO: Alert and oriented x3. PSYCH: Normal mood and affect Course Course Level of Care: Express Care Visit Vital Signs Vital signs: Vital Signs Temperature 97.4 F L 12/29/24 08:21 Pulse Rate 92 12/29/24 08:21 Respiratory Rate 16 12/29/24 08:21 Blood Pressure 132/85 12/29/24 08:21 Pulse Oximetry 100 12/29/24 08:21 Oxygen Delivery Room Air 12/29/24 08:21 Temperature 97.4 F L 12/29/24 08:21 Pulse Rate 92 12/29/24 08:21 Respiratory Rate 16 12/29/24 08:21 Blood Pressure 132/85 12/29/24 08:21 Pulse Oximetry 100 12/29/24 08:21 Oxygen Delivery Room Air 12/29/24 08:21 reviewed. MDM - Nausea/Vomiting/Diarrhea MDM Narrative Medical decision making narrative: Discussed physical exam findings. Zofran for nausea. Advised supportive measures and signs/symptoms to go to the ER. Pt is appropriate for outpatient treatment and follow up. Differential Diagnosis Differential diagnosis: Likely food poisoning, gastroenteritis, dehydration and other (GERD, PUD, pancreatitis, pyelonephritis, bowel obstruction, ) Critical Care Time Critical Care Time Critical Care Time: No Discharge Plan Discharge Clinical Impression: Diarrhea Qualifiers: Diarrhea type: unspecified type Qualified Code(s): R19.7 - Diarrhea, unspecified Patient Disposition: Home Condition: Stable Instructions: Acute Diarrhea (ED) Additional Instructions: Take Zofran as prescribed Stay hydrated. Take small sips of fluid containing electrolytes frequently(Body [place], Gatorade, Powerade, liquid IV). Eat small meals that her very bland including bananas, applesauce, rice, toast, boiled or grilled chicken, soup. Do not eat anything fried, spicy or overly acidic. Monitor blood sugars closely. Follow-up with your primary. You should go to the hospital if you experience return of persistent nausea and vomiting that does not resolve and does not allow you to tolerate any food or fluids, persistent fevers for greater than 2-3 more days, increasing abdominal pain that persists despite medications, persistent diarrhea, dizziness, syncope (fainting), blood or mucus in your stool or for any other concerns. Patient Language: Thai Prescriptions: New ondansetron 8 mg tablet,disintegrating 8 mg PO Q4-6H PRN (Reason: nausea and vomiting) Qty: 15 0RF No Action Nexplanon 68 mg Implant 1 implant SUBDERMAL ONCE Rx Instructions: as a single dose Farxiga 5 mg tablet 5 mg PO DAILY Qty: 90 3RF Baqsimi 3 mg/actuation spray,non-aerosol 3 mg intranasal ONCE Qty: 2 0RF Rx Instructions: as a single dose insulin glargine [Lantus Solostar U-100 Insulin] 100 unit/mL (3 mL) insulin pen 18 unit subcut BID Qty: 45 3RF Rx Instructions: 18 units twice daily Lyumjev KwikPen U-100 Insulin 100 unit/mL insulin pen 4 unit subcut .before meals MDD 20 Qty: 15 0RF lisinopril 2.5 mg tablet See Rx Instructions .ROUTE .COMPLEX Qty: 90 0RF Dose Instruction: TAKE ONE TABLET BY MOUTH EVERY DAY IN THE MORNING FOR BLOOD PRESSURE Rx Instructions: TAKE ONE TABLET BY MOUTH EVERY DAY IN THE MORNING FOR BLOOD PRESSURE (DME) Dexcom G7 Sensor Device MISCELLANEOUS Qty: 9 3RF Rx Instructions: every 10 days (DME) pen needle, diabetic [Comfort EZ Pen [employer]] 32 gauge x 3/16 needle See Rx Instructions .Route Qty: 500 12RF Rx Instructions: two times daily omeprazole 20 mg capsule,delayed release(DR/EC) 20 mg PO DAILY 14 Days Qty: 14 0RF (DME) Dexcom G7 Loss Prevention Research Engineer Misc MISCELLANEOUS Qty: 1 0RF Rx Instructions: one biodiesel product development manager (DME) blood-glucose meter [Contour Next Gen Meter] Kit See Rx Instructions .Route Qty: 1 0RF Rx Instructions: Use to monitor BS (DME) Contour Next Test Strips Strip See Rx Instructions .Route Qty: 100 0RF Rx Instructions: Use to check BS twice daily (DME) lancets [Comfort EZ Lancets] 28 gauge misc See Rx Instructions .Route Qty: 400 0RF Rx Instructions: 3 times a day Follow-up/Referrals: Lionel,Raman Farrar [Primary Care Provider] - Stand Alone Forms: Work/School Release IP Time of Disposition: 08:48
== END 2024-12-29 08:50 | disposition home or self-care (01) ==
PROVIDERS: PCP Internal Medicine Infectious Disease
DX: R19.7 Diarrhea, unspecified (principal); E11.9 Type 2 diabetes mellitus without complications; Z79.4 Long term (current) use of insulin; E28.2 Polycystic ovarian syndrome; K76.0 Fatty (change of) liver, not elsewhere classified; F12.90 Cannabis use, unspecified, uncomplicated
CPT/HCPCS: 99213; G0463

== ENCOUNTER 2025-01-28 11:15 | Emergency (ER) | payer SELFPAY ==
--- NOTE | 2025-01-28 11:27 | ED.ABDPAIN ---
HPI - Abdominal Pain General Chief Complaint: Abdominal Pain Stated Complaint: Stomach Pain Time Seen by Provider: 01/28/25 11:27 Source: patient and RN notes reviewed Mode of arrival: ambulatory Limitations: no limitations History of Present Illness HPI narrative: 29 y/o female with IBS, DM and HTN presented for c/o diarrhea and cramping across lower abdomen. Says cramping started last night, diarrhea started today while at work. Pain is described as a 'simmer' rates 5/10, and occasionally radiates to the left lower back. Says BS was up to 260 at work, and she gave herself the fast acting insulin. BS 178 per dexcom. Pt says she ran out of some of her meds including farxiga 2 days ago due to insurance issues. Pt has appts next week with behavior analyst and PCP. Denies vomiting, hematochezia, melena, fever or lethargy. Denies urinary complaints. Related Data Home Medications ?Medication ?Instructions ?Recorded ?Confirmed ?Last Taken ?Type etonogestrel 68 mg subdermal 1 implant subdermal ONCE 01/05/23 01/28/25 Unknown History implant (Nexplanon) Allergies Allergy/AdvReac Type Severity Reaction Status Date / Time No Known Allergies Allergy Verified 01/28/25 11:18 Review of Systems Review of Systems: CONSTITUTIONAL: Denies body aches, fever, chills ENT: Denies rhinorrhea, congestion CARDIOVASCULAR: Denies chest pain, palpitations, or edema. RESPIRATORY: Denies cough or dyspnea. GASTROINTESTINAL: Endorses abdominal pain, nausea, diarrhea. Denies vomiting, hematochezia, melena GENITOURINARY: Denies dysuria, hematuria, or CVA tenderness. MUSCULOSKELETAL: Denies back pain, joint pain, or myalgia. NEUROLOGIC: Denies headache, numbness, tingling, or weakness. All systems reviewed & are unremarkable except as noted in HPI and below PMFSH Past Medical History Medical History Insulin dependent type 2 diabetes mellitus Stomach problems possible gastritis PCOS (polycystic ovarian syndrome) Fatty liver Herpes Surgical History Surgical History No significant past surgical history Family History Family History Grandparent Cancer spread everywhere, unknown cause Father Cerebrovascular accident Mother Hypertension Thyroid disorder Arthritis Social History Social History Smoking status: Never smoker Alcohol intake: current Alcohol use details: occasionally Substance use: current Substance use type: marijuana Do You Feel Safe in your Home?: Yes Lack of Transportation: No Lack of Food: Never True Current Housing: I Have Housing Concerned About Future Housing: No Difficulty Paying Gas/Electric Bills: No Difficulty Paying for Meds: No Currently Unemployed: No Education: High School Diploma/GED Difficulty w/ Childcare or Family Care: No Living arrangements: with family Comments At time of signature, I have reviewed and agree with nursing past medical, surgical, social and family history unless otherwise noted. Please see nursing chart for further information. There is no relevant family history pertinent to the presenting complaint Exam Narrative: GENERAL: Well-appearing, and in no acute distress. EYES: Conjunctivae normal. ENT: Mucous membranes pink and moist. CHEST: Clear to auscultation. HEART: Regular rate and rhythm. ABDOMEN: abd soft, nondistended, normal active bowel sounds. Generalized tender abdomen; No guarding, rebound tenderness, asymmetry. No organomegaly. Negative Jo?s sign. No periumbilical tenderness. No Supra public tenderness or distension. SKIN: Warm, dry, no rash. Capillary refill normal. Normal skin turgor. NEURO: No focal deficits. Alert and oriented x3. PSYCH: Normal affect. Course Course Emergency Course: Patient is aware of diagnosis, understands and agrees to treatment plan. Anticipatory guidance given. Patient agrees to follow-up as directed and is aware of reasons to seek care at the emergency department. Portions of this record may have been created with voice recognition software Level of Care: Express Care Visit MDM - Abdominal Pain MDM Narrative Medical decision making narrative: Discussed physical exam findings; generalized abdominal tenderness otherwise patient is well appearing, vital signs stable. Urine will be cultured. Nexplanon in place no concern for . Pt closely monitors BS levels with dexcom; stable at this time. She is scheduled with behavior analyst and pcp next week. Offered ER transfer, shared decision making pt is agreeable to follow BRAT diet, monitor BS, and go to the ER should sx worsen. Advised supportive measures and signs/symptoms to go to the ER. Pt is appropriate for outpt treatment and f/u. Differential Diagnosis Differential diagnosis: Likely abdominal pain, gastroenteritis, small bowel obstruction and other Discharge Plan Discharge Clinical Impression: Acute diarrhea Patient Disposition: Home Condition: Stable Instructions: Antibiotic Form, Acute Diarrhea (ED) Additional Instructions: Stay hydrated. Take small sips of fluid containing electrolytes frequently. Clear liquids (broth, jello, tea, sprite, pedialyte) [place] foods (bananas, rice, applesauce, toast, crackers) Avoid fatty, greasy, fried or spicy foods. Limit dairy until symptoms are improved. [id number] Imodium according to package directions Recommend probiotic such as align or lactobacillus to help with symptoms. Continue to check your blood sugars regularly You should go to the hospital if you experience persistent nausea and vomiting that does not resolve and does not allow you to tolerate any food or fluids, fevers, increasing abdominal pain, persistent diarrhea, dizziness, fainting, or for any other concerns. Follow up with primary care provider in 3 days. Patient Language: Kiswahili Prescriptions: No Action Nexplanon 68 mg Implant 1 implant SUBDERMAL ONCE Rx Instructions: as a single dose ondansetron 8 mg tablet,disintegrating 8 mg PO Q4-6H PRN (Reason: nausea and vomiting) Qty: 15 0RF Farxiga 5 mg tablet 5 mg PO DAILY Qty: 90 3RF Baqsimi 3 mg/actuation spray,non-aerosol 3 mg intranasal ONCE Qty: 2 0RF Rx Instructions: as a single dose insulin glargine [Lantus Solostar U-100 Insulin] 100 unit/mL (3 mL) insulin pen 18 unit subcut BID Qty: 45 3RF Rx Instructions: 18 units twice daily Lyumjev KwikPen U-100 Insulin 100 unit/mL insulin pen 4 unit subcut .before meals MDD 20 Qty: 15 0RF lisinopril 2.5 mg tablet See Rx Instructions .ROUTE .COMPLEX Qty: 90 0RF Dose Instruction: TAKE ONE TABLET BY MOUTH EVERY DAY IN THE MORNING FOR BLOOD PRESSURE Rx Instructions: TAKE ONE TABLET BY MOUTH EVERY DAY IN THE MORNING FOR BLOOD PRESSURE (DME) Dexcom G7 Sensor Device MISCELLANEOUS Qty: 9 3RF Rx Instructions: every 10 days (DME) pen needle, diabetic [Comfort EZ Pen [place]] 32 gauge x 3/16 needle See Rx Instructions .Route Qty: 500 12RF Rx Instructions: two times daily omeprazole 20 mg capsule,delayed release(DR/EC) 20 mg PO DAILY 14 Days Qty: 14 0RF (DME) Dexcom G7 Director Food And Beverage Misc MISCELLANEOUS Qty: 1 0RF Rx Instructions: one kiosk sales representative (DME) blood-glucose meter [Contour Next Gen Meter] Kit See Rx Instructions .Route Qty: 1 0RF Rx Instructions: Use to monitor BS (DME) Contour Next Test Strips Strip See Rx Instructions .Route Qty: 100 0RF Rx Instructions: Use to check BS twice daily (DME) lancets [Comfort EZ Lancets] 28 gauge misc See Rx Instructions .Route Qty: 400 0RF Rx Instructions: 3 times a day Follow-up/Referrals: Jayne,Raman Farrar [Primary Care Provider] - Stand Alone Forms: Work/School Release IP Time of Disposition: 11:44
[2025-01-28 11:44] VITALS: BP 128/81; PULSE 78; RESP 18; TEMP 36.7; O2SAT 100
--- OUTSIDE RECORDS SUMMARY | 2025-01-28 11:49 | XMS_ITS | Clinical Summary ---
Author Organization [facility] [employer] Address [address] [place] [address] Care Team Providers Care Roller Structural Mill Name Role Phone Bella Ferrera SHEET METAL WELDER-SEWING MACHINES SALESPERSON Primary Care Pro vider Source Comments [facility] [employer],non-owned Affiliates and Associated Physician Practices is amultiple site organization consisting of ambulatory clinics and hospital sitesin [place], [place], [place] and [place]. This disclosure is being madepursuant to the Care Everywhere program and may not contain all information available regarding this patient. Last updated 18.[facility] [employer] [employer] Allergies No known active allergies Medications * Be aware that medications may not be up to date on this document. Alwaysverify current medications with the patient. norethindrone-e thinyl estradiol (LOESTRIN 1.5/30) 1.5-30 MG-MCG tabletIndicatio ns:Amenorrhea Take 1 Tab by mouth once daily. Indications: Absence of Menstrual Periods 3 Active Active Problems Problem Noted Date Diagnosed Date Episode of shaking 12/05/2014 Assessment & Plan (12/05/2014 8:12 AM CDT): Etiology unclear; ? Anxiety. 1. Referral to local mental healthcare center (listing of available centers given at the time of the office visit). Irregular menses 08/19/2013 Overview (08/19/2013): OOM ~ age 14 yrs; Lo-Estrin Fe 24 started Nov 06, 2012; Nov 08, 2012 ([facility]): LH 5.3 uIU/mL; FSH 4.9 uIU/mL, DHEA-S 127.5 ug/dL (33.9- 280), TSH 1.100 uIU/ml (0.45-4.50), total testosterone 26 ng/dL (female Kyle V - 5- 38), free testosterone (direct) 1.5 pg/mL (no reference range); prolactin 7.8 ng/mL (4.8-23.3), 17-hydroxyprogesterone 50 ng/dL (female Kyle V - 20-265). November 13, 2012 ([place], [place]): pelvic ultrasound Findings: Uterus 7.2 x 2.9 x 4.3 cm demonstrating normal echogenicity. Endometrium: normal 0.5 cm. Right ovary: 2.6 x 1.3 x 1.87 cm. Left ovary: 1.8 x 1.3 x 0.9 cm. Cul-de-sac: unremarkable. Detail of the adnexa is diminished secondary to trans-vesicle technique. Impression: unremarkable examination. Assessment & Plan (12/05/2014 7:58 AM CDT): ? Anovulatory cycles vs ? (evolving polycystic ovarian syndrome); acanthosis nigricans (at risk of developing diabetes mellitus); hair thinning. 1. Continue oral contraceptive pills. 2. Menstrual diary. 3. Referral to local commercial sales director physician 4. Reviewed signs/symptoms of diabetes mellitus. 5. Referral to local fitness studies teacher for further evaluation of hair thinning 6. Return appointment as needed Assessment & Plan (08/19/2013 8:49 PM CAPITAL PROJECT ENGINEER): Irregular menses, hirsutism, acanthosis nigricans, alopecia - probable evolving polycystic ovarian syndrome (PCOS) vs anovulatory cycles 1. See website: [email or web address] for patient information handouts - polycystic ovarian syndrome 2. Continue oral contraceptives 3. Dietary & exercise counseling provided. 4. Consider Dermatology referral if alopecia persists. 5. Return appointment in three months. Family History Medical History Relation Name Comments Diabetes Other Dad's father's cousin Relation Name Status Comments Other Social History Tobacco Use Types Packs/Day Years Used Date Smoking Tobacco: Never Alcohol Use Standard Drinks/Week Comments Not Asked 0 (1 standard drink = 0.6 oz pur e alcohol) Comments No Sex and Gender Information Value Date Recorded Sex Assigned at Not on file Legal Sex Female 5:43 AM CAPITAL PROJECT ENGINEER Gender Identity Not on file Sexual Orientation Not on file Last Filed Vital Signs Vital Sign Reading Time Taken Comments Blood Pressure 112/74 11/26/2014 8:48 AM CDT Pulse 94 11/26/2014 8:48 AM CDT Temperature - - Respiratory Rate 20 11/26/2014 8:48 AM CDT Oxygen Saturation - - Inhaled Oxygen Concentration - - Weight 74.2 kg (163 lb 9.6 oz) 11/26/2014 8:48 A M CDT Height 163 cm (5' 4.17) 11/26/2014 8:48 AM CDT Body Mass Index 27.93 11/26/2014 8:48 AM CDT Plan of Treatment Health Maintenance Due Date Last Done Comments HIV SCREENING 2012 HEPATITIS C SCREENING 11/30/2015 DTAP/TDAP/TD VACCINES (1 - Tdap) 2016 HEPATITIS B VACCINE (1 of 3 - 19+ 3-dose series) 2016 PAP SMEAR 2018 COVID-19 VACCINE (3 - 2023- season) 2024 10/12/2020, 09/11/2020 DEPRESSION SCREENING 07/16/2024 HPV VACCINE (1 - 3-dose SCDM series) 2024 INFLUENZA VACCINE (#1) 2025 , 06/10/2019, 04/29/2018, Additional history exists ZOSTER VACCINE (1 of 2) 12/05/2047 HIB VACCINE Aged Out No longer eligi ble based on patient's age to complete this topic MENINGOCOCCAL (Group B) VACCINE SHARED DECISION-MAKING Aged Out No longer eligible based on patient's age to complete this topic MENINGOCOCCAL GROUPS A/C/Y/W VACCINE Aged Out No longer eligible based on patient's age to complete this topic PNEUMOCOCCAL VACCINE Aged Out No long er eligible based on patient's age to complete this topic Insurance [facility] Care Teams Rol[employer] Relationship Specialty Start Date End Date Bella Ferrera, JESUS MANUEL-SEWING MACHINES SALESPERSON [address] [phone] PCP - General Nurse Practitioner 01/01/14
--- OUTSIDE RECORDS SUMMARY | 2025-01-28 11:49 | XMS_ITS | Referral Summary ---
Author Organization [facility] Address [address] [place] [address] Care Team Providers Care Building Contractor Name Role Phone Leni Godoy MD Primary Care Provider Allergies No known active allergies Social History Tobacco Use Types Packs/Day Years Used Date Smoking Tobacco: Never Assessed Personal Safety Answer Date Recorded Have you ever been in or are you currently in a harmful physical or emotional relationship or is someone making you feel afraid or unsafe? Denies 03/30/2024 Comments No Sex and Gender Information Value Date Recorded Sex Assigned at Not on file Legal Sex Female 9:06 PM CARBONIZER TESTER Gender Identity Not on file Sexual Orientation Not on file Last Filed Vital Signs Vital Sign Reading Time Taken Comments Blood Pressure 99/68 03/30/2024 12:30 AM CDT Pulse 101 03/30/2024 12:30 AM CDT Temperature 36.8 C (98.2 F) 03/30/2024 12:14 AM CDT Respiratory Rate 12 03/30/2024 12:30 AM CDT Oxygen Saturation 96% 03/30/2024 12:30 AM CDT Inhaled Oxygen Concentration - - Weight 74.8 kg (165 lb) 03/30/2024 12:14 AM CDT Height 165.1 cm (5' 5) 03/30/2024 12:14 AM CDT Body Mass Index 27.46 03/30/2024 12:14 AM CDT Plan of Treatment Not on file Care Teams Building Contractor Relationship Specialty Start Date End Date Leni Godoy MD [address] [place] [id number] PCP - General Internal Medicine 03/16/23
--- OUTSIDE RECORDS SUMMARY | 2025-01-28 11:49 | XMS_ITS | Data Portability ---
Author Organization [facility] [employer], Main Office Address [address] [place] [address] Assessment No assessment recorded. Plan of Treatment Reminders Order Date Submit Date Provider Last Modified By Organization Details Last Modified Time Details Appointments None recorded . Lab urinalys is, dipstick 2022 023 [email or web address] [facility] [facility] [address], [place], [address], 13:28:23 Referral None recorded . Procedures cystosco py (PROC) 2022 023 [email or web address] Not available 13:03:23 Surgeries None recorded . Imaging None recorded . Medication Orders ciproflo xacin 500 mg tablet 2022 023 [email or web address] Not available 14:27:00 Patient TargetsNo targets recorded. Patient InstructionsNo instructions recorded. Reason for Referral None Reported. Results Created Date Observation Date Name Description Value Unit Range Abnormal Flag Note LastModifiedBy Organization Detail LastModifiedTime 01/19/2001/18/2023 urina lysis , dipst ick Leukocytes (reference range: negative lennox/ l) Negati ve Not Available [facility] [address] [facility] [address], [place], [address], 01/18/2023 13:05:23 01/19/20 23 01/18/2023 urina lysis , dipst ick Nitrite (reference rage: negative mg/dl) negati ve Not Available [facility] [address] [facility] [address], [place], [address], 01/18/2023 13:05:23 01/19/20 23 01/18/2023 urina lysis , dipst ick Urobilinogen (reference range: 0.2-1 mg/dl) 0.2 Not Available [facility] [address], [place], [address], 01/18/2023 13:05:23 01/19/2001/18/2023 urina lysis , dipst ick Protein (reference range: negative mg/dl) Modera te Not Available [facility] [address], [place], [address], 01/18/2023 13:05:23 01/19/20 23 01/18/2023 urina lysis , dipst ick pH (reference range: 5-7) 6.0 Not Available [facility] [address], [place], [address], 01/18/2023 13:05:23 01/19/2001/18/2023 urina lysis , dipst ick Blood (reference range: negative Thomas/ l) Modera te Not Available [facility] [address] [place] [address] [address], [place], [address], 01/18/2023 13:05:23 01/19/2001/18/2023 urina lysis , dipst ick Specific Cherokee (reference range: 1.005-1.030) 1.020 Not Available [facility] [address], [place], [address], 01/18/2023 13:05:23 01/19/2001/18/2023 urina lysis , dipst ick Ketone (reference range: negative mg/dl) Small Not Available [facility] [address], [place], [address], 01/18/2023 13:05:23 01/19/20 23 01/18/2023 urina lysis , dipst ick Bilirubin (reference range: negative mg/dl) Negati ve Not Available [facility] [address], [place], [address], 01/18/2023 13:05:23 01/19/20 23 01/18/2023 urina lysis , dipst ick Glucose (reference range: negative mg/dl) 500 Not Available [facility] [address], [place], [address], 01/18/2023 13:05:23 01/19/20 23 01/18/2023 urina lysis , dipst ick Appearance Clear Not Available [facility] [address], [place], [address], 01/18/2023 13:05:23 01/19/20 23 01/18/2023 urina lysis , dipst ick Color Yellow Not Available [facility] [place] [address], [place], [address], 01/18/2023 13:05:23 Result Notes None recorded. Problems Name Problem SNOMED Code Status Onset Date Resolution Date Notes Provider Name and Address Organization Details Recorded Time Metabolic syndrome X 454182660 Active 2021 Not Available [facility] 3 21:00:28 Headache 78559314 Active 2021 Not Available [employer] 3 21:00:28 Disorder of lipid metabolism 609346261 Active 2021 Not Available [employer] 3 21:00:28 Hypertriglyce ridemia 743120443 Active 2021 Not Available [employer] 3 21:00:28 Bipolar I disorder 095289401 Active 2021 Not Available [facility] 3 21:00:28 Obesity 704851245 Active 2021 Not Available [facility] 3 21:00:28 Type 1 diabetes mellitus 10205062 Active 2021 Not Available [facility] 3 21:00:28 Hyperlipidemi a 90564052 Active 2021 Not Available [facility] 3 21:00:28 Irregular periods 31294635 Active 2021 Not Available [facility] 3 21:00:28 Hyperglycemia 42943131 Active 2021 Not Available [facility] 3 21:00:28 Polycystic bilateral ovaries 428857749 Active 2021 Not Available [facility] 3 21:00:28 Herpes simplex 52959278 Active 2021 Not Available [facility] 3 21:00:29 Microscopic hematuria 818909528 Active 2022 JOSEPH Liu, [facility] [employer] [facility] 3 13:14:20 Recurrent urinary tract infection 320698891 Active 2022 JOSEPH Liu, [facility] [employer] [facility] 3 11:37:13 Problem Notes None recorded. Procedures Surgical History Date Name Laterality Status Provider Name and Address Organization Details Recorded Time 3 Cystoscopy (female) completed Anthony Smith MD [address] [place] [address], [id number] [employer] [facility] 02/08/2023 12:18:37 Imaging Results None recorded. Procedure [...] Not Available Not Available No t Available [employer] K[employer]Pen U-100 Insulin 100 unit/mL subcutaneou s INJECT 12 UNITS SUBCUTANE OUS BEFORE MEALS. MAX DAILY DOSE 38 UNITS active Not Available Not Available No t Available Dexcom G7 Field Sampling Technician DIRECTED active Not Available Not Available No t Available Dexcom G7 Sensor device CHANGE EVERY 10 DAYS active Not Available Not Available No t Available Vitals Date Recorded Oxygen saturation Oxygen saturation in Arterial blood by Pulse oximetry Body weight Body temperature Body mass index (BMI) Body height Heart rate Systolic And Diastolic Provider Name and Address Organization Details Last Updated DateTime 3 99 % 99 % 453.59 g 98.4 [degF] 0.2 kg/m2 165.1 cm 83 /min 136/98 mm[Hg] HAILEY Carreno [employer] 3 13:05:19 Date Recorded Body height Provider Name an d Address Organization Details Last Updated DateTime 02/08/2023 165.1 cm Ellyn Robins MA [employer] [facility] [employer] 02/08/2023 11:36:15 Social History Question Answer Notes LastModified by [employer] Details LastModified Time Tobacco Smoking Status Never Smoker Not Available [facility] 09/13/2022 20:58:42 Do You Have An Advance Directive? No [id number] Information not available 09/13/2022 What Is Your Level Of Caffeine Consumption? None Information not available 01/18/2023 Which Illicit Or Recreational Drugs Have You Used? Marijuana [id number] Information not available 09/13/2022 Are There Any Guns Present In Your Home? No [id number] Information not available 09/13/2022 Have You Ever Been Counseled For Unhealthy Alcohol Use? No [id number] Information not available 09/13/2022 Do You Have Smoke And Carbon Monoxide Detectors In Your Home? Yes [id number] Information not available 09/13/2022 Do You Use Sunscreen Routinely? No [id number] Information not available 09/13/2022 Has Tobacco Cessation Counseling Been Provided? No [id number] Information not available 09/13/2022 Have You Used IV Drugs? No Information not available 01/18/2023 Sex: Unknown Functional Status Question Answer Note LastModified by [employer] Details LastModified Time Do you use any illicit or recreational drugs? Yes [id number] Information not available 09/13/2022 Do you or have you ever used any other forms of tobacco or nicotine? No [id number] [id number] Information not available 09/13/2022 What is your level of alcohol consumption? Occasional [id number] Information not available 09/13/2022 What is your exercise level? Occasional [id number] Information not available 09/13/2022 Mental Status None recorded. Family History Relationship Description Onset Age of this Age Resolved Age Notes LastModified by Organization Details LastModified Time Brother Bipolar disorder [id number] Not available 09/13/2022 20:59:03 Mother Hypertensive disorder [email or web address] Not available 2022 13:09:29 Medical History Condition Response CYSTITIS N BLINDNESS N RHEUMATIC FEVER N KIDNEY STONES N BLADDER PROBLEMS N Enlarged Prostate N MRSA N LUNG DISEASE/DISORDER N HISTORY OF DRUG ABUSE N COPD N RADIATION / CHEMOTHERAPY N BLOOD DISEASES N SHINGLES N DEPRESSION (INCLUDING POST ) Y BOWEL PROBLEMS N FAILED BACK SYNDROME N STROKE/TIA N THYROID DISEASE N BENIGN PROSTATIC HYPERPLASIA N OBESITY N GERD/NAUSEA N ANEURYSM N URINARY/BLADDER/KIDNEY PROBLEMS N Increased Urination N CORONARY ARTERY DISEASE (CAD) N Do you have Advance directive? N USE OF BLOOD THINNERS N EMPHYSEMA N GASTROINTESTINAL DISORDER N GASTROINTESTINAL BLEEDING N BLOOD CLOTS N Difficulty Urinating N ASTHMA N CATARACTS N Abdominal Pain N ERECTILE DYSFUNCTION N ARTERIAL INSUFFICIENCY N GI PROBLEMS N Low Testosterone N AIDS/HIV N LIVER DISEASE N MALE HYPOGONADISM N HYPERTENSION N TOURETTE'S N BLOOD TRANSFUSION N ANEMIA/BLOOD DISORDER N TUBERCULOSIS N GLAUCOMA N SLEEP APNEA N BACK INJECTIONS N INFECTIOUS DISEASE N PROSTATE N HEART ARRHYTHMIA N INSOMNIA N ESRD N HIGH CHOLESTEROL / HYPERLIPIDEMIA N HYPERTHYROIDISM N UTI N PVD N EDEMA N HYPOTHYROIDISM N BACK / NECK PROBLEMS N HAVE YOU BEEN HOSPITALIZED OR SEEN IN [facility] ER IN THE PAST YEAR ? N DIALYSIS N POLYCYSTIC OVARIES N OSTEOPOROSIS N ARTHRITIS N NO SIGNIFICANT PAST MEDICAL HISTORY N DIABETES, TYPE N VON WILLIBRAND'S DISEASE N [place] N incontinence N POST LAMINECTOMY SYNDROME N HEPATITIS / LIVER DISEASE N GOUT N SLEEP DISORDER N ALZHEIMER'S DISEASE N HERPES N SEIZURES/EPILEPSY N HEADACHES/MIGRAINES N PACEMAKER N HEART MURMUR N DIZZINESS [...] SNOMED-CT Code Diagnosis ICD10 Code Diagnosis Note [id number] Anthony Smith MD [facility] [address] [place] [address] 01/18/2023 12:50:19 01/18/2023 13:32:55 Microscopic hematuria 450973551 R31.29 will need cystoscopy . CT normal. [id number] MD CORBIN Powell_Jacque [address] [address] 02/08/2023 11:27:22 02/08/2023 12:19:16 Microscopic hematuria 277075169 R31.29 Hematuria evaluation negativefo llow up in a year. Health Concerns Section Related Observation LastModified by Organization Detai ls LastModified Time None Recorded Concern Status LastModified by Organization Details LastModified Time None Recorded Advance Directives Directive N: Payers Insurance Date Sequence Insurance Name Policy Number Policy Angel Covered Member ID Angel Member ID Guarantor Name 01/23/2024 1 [facility] (MEDICAID HMO) [id number] Sarah Amandeep [id number] Sarah [place] Amandeep Notes Date Note Type Note Provider Name and Address Organization Details Recorded Time 01/18/2023 text/html 27 yo female wit h DM with hematuria. She gets frequent uti's and has been seeing blood after wiping. Some dysuria after last uti. NCCT shows duplication. Anthony Smith MD [address], [facility] [address], [place], [address], [facility] [employer] [facility] 01/18/2023 13:28:47 02/08/2023 text/html follow up for microhematuria. 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 Anthony Smith MD [address], [place], [address], [employer] [employer] [facility] 02/08/2023 12:19:34 OBGyn Episode No OBEpisode recorded.
--- OUTSIDE RECORDS SUMMARY | 2025-01-28 11:49 | XMS_ITS | Patient Health Record ---
Author Organization [facility] Address [address] [place], [place] [id number] Care Team Providers Care Fire Support Specialist Name Role Phone SATYA PEÑA Unavailable [phone] Leni Godoy Unavailable Unavailable Reason For Referral No Information Plan Of Treatment No Information Insurance Providers Payer Name Payer Address Payer Phone Subscriber Number Group Number Insured Name Patient Relationship to Insured Coverage Start Date Coverage End Date [facility] [address] [address] [place] [address] [id number] VIVIANA LEE Self - patient is the insured
--- OUTSIDE RECORDS SUMMARY | 2025-01-28 11:49 | XMS_ITS | Clinical Summary ---
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 Gender Identity Not on file Sexual Orientation Not on file Plan of Treatment Health Maintenance Due Date Last Done Comments Hepatitis C Virus (HCV) Screening 1997 SARS-COV-2 Immunization ( season) 2024 10/12/2020, 09/11/2020 Influenza Immunization (#1) 03/16/202505/17, 04/29/2018, 05/04/2015, Additional history exists Respiratory Syncytial Virus (RSV) Immunization (Adult) (1 - 1-dose 75+ series) 2072 Hepatitis B Immunization Completed 998, 02/05/1998, 1997 DTaP/Tdap/Td Immunization Discontinued 2010, 03/20/2003, 03/23/1999, Additional history exists TdaP Immunization Completed 07/22/2010 Human Papillomavirus (HPV) Immunization Completed 05/04/2015, 02/15/2012, 09/22/2010, Additional history exists Meningococcal Immunization (ACWY) Completed 05/04/2015, 07/22/2010 Pneumococcal Immunization Combined Completed 03/01/2018, 09/26/2000 Rotavirus Immunization Aged Out No lo nger eligible based on patient's age to complete this topic
--- OUTSIDE RECORDS SUMMARY | 2025-01-28 11:50 | XMS_ITS | Clinical Summary ---
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 Gender Identity Not on file Sexual Orientation Not on file Obstetrics History Last Filed Vital Signs Vital Sign Reading [...] 03/30/2024 12:14 AM CDT Plan of Treatment Health Maintenance Due Date Last Done Comments Cervical Cancer Screening 1997 Depression Screening 1997 Hepatitis C Screening 1997 DTaP/Tdap/Td Vaccine (1 - Tdap) 2008 Varicella Vaccines (1 of 2 - 13+ 2-dose series) 2010 Hepatitis B Screening 12/05/2015 Regular Well Visit/Exam 18-64 12/05/2015 Influenza Vaccine (Season Ended) 2025 HPV Vaccines Aged Out No longer eligi ble based on patient's age to complete this topic Pneumococcal vaccine <65 Aged Out No longer eligible based on patient's age to complete this topic Care Teams Elevator Serviceman Relationship Specialty Start Date End Date Leni Godoy MD [address] [address] PCP - General Internal Medicine 03/16/23
[2025-01-28 11:51] LABS: EDUAAPPEAR Clear; EDUABILI Negative (Negative); EDUABLOOD 2+ (Negative); EDUACOLOR1 Yellow; EDUAGLUCOSE Trace (Negative); EDUAKETONE Negative (Negative); EDUALEUKO Negative (Negative); EDUANITRATE Negative (Negative); EDUAPH 5.5; EDUAPROTEIN 1+ (Negative); EDUASPGRAVITY 1.030; EDUAUROBILI 0.2
== END 2025-01-28 11:46 | disposition home or self-care (01) ==
PROVIDERS: Emergency Provider Nurse Practitioner Family; PCP Internal Medicine Infectious Disease
DX: R19.7 Diarrhea, unspecified (principal); E11.9 Type 2 diabetes mellitus without complications; Z79.4 Long term (current) use of insulin; I10 Essential (primary) hypertension; E28.2 Polycystic ovarian syndrome; K76.0 Fatty (change of) liver, not elsewhere classified
CPT/HCPCS: 81003; 87086; 99213; G0463

== ENCOUNTER 2025-03-10 10:39 | Emergency (ER) | payer OTHER, SELFPAY ==
[2025-03-10 10:43] VITALS: BP 121/84; PULSE 84; RESP 16; TEMP 36.2; O2SAT 100
--- NOTE | 2025-03-10 10:44 | ED.SKABFB ---
HPI - Skin/Abscess/Foreign Bdy General Chief complaint: Skin/Abscess/Foreign Body Stated complaint: Bump On Butt Time Seen by Provider: 03/10/25 10:46 Source: patient, RN notes reviewed and old records reviewed Mode of arrival: ambulatory Limitations: no limitations History of Present Illness HPI narrative: 29-year-old presents to the [facility] with 2 week history of a bump or cyst to the anterior lower right buttock. 2 cm fluctuant area, white area to the center. Patient without surrounding erythema. Denies fevers. Related Data Home Medications ?Medication ?Instructions ?Recorded ?Confirmed ?Last Taken ?Type etonogestrel 68 mg subdermal 1 implant subdermal ONCE 01/05/23 02/19/25 Unknown History implant (Nexplanon) insulin degludec 100 unit/mL (3 18 unit subcut BID 02/19/25 02/19/25 Unknown History mL) subcutaneous pen (Tresiba FlexTouch U-100 insulin) lisinopril 2.5 mg tablet mg 03/10/25 Unknown History Allergies Allergy/AdvReac Type Severity Reaction Status Date / Time No Known Allergies Allergy Verified 03/10/25 10:41 Review of Systems Review of Systems: All systems reviewed & are unremarkable except as noted in HPI and below Constitutional: Constitutional: Reports no additional constitutional complaints Musculoskeletal: Musculoskeletal: Reports no additional musculoskeletal complaints Integumentary/Breasts: Skin/Breast: Reports as per HPI PMFSH Past Medical History Medical History Insulin dependent type 2 diabetes mellitus Stomach problems possible gastritis PCOS (polycystic ovarian syndrome) Fatty liver Herpes Surgical History Surgical History No significant past surgical history Family History Family History Grandparent Cancer spread everywhere, unknown cause Father Cerebrovascular accident Mother Hypertension Thyroid disorder Arthritis Social History Social History Smoking status: Never smoker Alcohol intake: current Alcohol use details: occasionally Substance use: current Substance use type: marijuana Do You Feel Safe in your Home?: Yes Lack of Transportation: No Lack of Food: Never True Current Housing: I Have Housing Concerned About Future Housing: No Difficulty Paying Gas/Electric Bills: No Difficulty Paying for Meds: No Currently Unemployed: No Education: High School Diploma/GED Difficulty w/ Childcare or Family Care: No Living arrangements: with family Comments At the time of my signature, I reviewed and agree with the nursing past medical, surgical, social, and family history. There is no relevant family history pertinent to the patient complaint. Exam Const: General: cooperative, healthy appearing, comfortable, no acute distress, well developed, alert and well nourished Nutritional Appearance: well nourished Orientation/consciousness: patient oriented x3 Limitations: no limitations HENMT: Head: normal to inspection Eyes: General: appearance normal, both eyes and all related structures Alignment and Position: alignment normal Neck: Neck: normal visual inspection, full ROM, no lymphadenopathy and no meningeal signs Chest: Chest palpation & inspection: normal inspection of the chest Resp: Effort & Inspection: normal respiratory effort and able to speak in complete sentences Cardio: Rate: regular rate Skin: General skin exam: normal color and no rashes or lesions noted Full body images:  1. 2 x 2 cm fluctuant area without erythema. Neuro: General: patient oriented x3, gait normal, moves all extremities and no meningeal signs Cognition (Neuro): normal cognition Speech: normal speech Gait exam (Neuro): Normal gait present Extrem: General: normal to inspection, full ROM, capillary refill normal and normal gait Psych: Appearance: grossly normal and well kempt Mental Status: mental status grossly normal Speech and movement: Normal speech and movement present and Clear speech present Affect: normal affect Attitude: cooperative Course Course Level of Care: Express Care Visit Vital Signs Vital signs: Vital Signs Temperature 97.2 F L 03/10/25 10:43 Pulse Rate 84 03/10/25 10:43 Respiratory Rate 16 03/10/25 10:43 Blood Pressure 121/84 03/10/25 10:43 Pulse Oximetry 100 03/10/25 10:43 Oxygen Delivery Room Air 03/10/25 10:43 Temperature 97.2 F L 03/10/25 10:43 Pulse Rate 84 03/10/25 10:43 Respiratory Rate 16 03/10/25 10:43 Blood Pressure 121/84 03/10/25 10:43 Pulse Oximetry 100 03/10/25 10:43 Oxygen Delivery Room Air 03/10/25 10:43 Reviewed Procedures Abscess I/D other: Date of Incision: 03/10/25 Time of Incision: 11:03 Side (if applicable): right (buttock) Local Anesthetic: lidocaine 1% Amount of anesthesia used (mL): 3 Technique: incised with #11 blade Amount of fluid expressed (mL): 10 Irrigation: Yes (25) Packing used?: none I&D Results: Other (Serous sanguinous) Abcess I&D Additional Comments: Procedure explained, verbal consent obtained. Cleaned area with Betadine, area injected with lidocaine, anesthesia achieved. 1 cm incision made in center of fluctuant area. Serous sanguinous fluid drained. Culture collected. Patient tolerated well MDM - Skin/Abscess/Foreign Bdy MDM Narrative Medical decision making narrative: Patient sitting in exam room. Patient is nontoxic, vitals stable. Patient presents with abscess to the right buttock. Attempted to drain. Patient appropriate for outpatient treatment with close follow-up Discharge instructions reviewed with patient, as well as provided in writing per nursing staff. The instructions also include specific and strict return/GO TO THE ER as well as f/u information. All questions have been answered, and the patient deny any further questions with discharge and discharge plan. Some parts of this dictation were generated by voice recognition software and may contain typographical and/or grammatical inaccuracies. Differential Diagnosis Differential diagnosis: Likely abscess of skin or subcutaneous tissue, cellulitis, insect bites, impetigo and contact dermatitis Lab Data Labs: Lab Results 03/10/25 Range/Units 10:52 POC Capillary Glucose 175 H (65-105) mg/dl Reviewed Critical Care Time Critical Care Time Critical Care Time: No Discharge Plan Discharge Clinical Impression: Abscess of buttock, right Patient Disposition: Home Condition: Stable Instructions: Antibiotic Form, Abscess (ED), Abscess Incision and Drainage (DC) Additional Instructions: Please follow-up with your primary care provider as scheduled tomorrow We have sent a culture, if the antibiotic does not cover what grows out we will notify you. Soak daily in a warm bath with Epson salts, baking soda and dial soap Be sure to keep that area clean and dry For new or worsening symptoms go directly to the emergency room Patient Language: Indonesian Prescriptions: New clindamycin HCl [Cleocin HCl] 300 mg capsule 300 mg PO Q6H 7 Days Qty: 28 0RF No Action Nexplanon 68 mg Implant 1 implant SUBDERMAL ONCE Rx Instructions: as a single dose ondansetron 8 mg tablet,disintegrating 8 mg PO Q4-6H PRN (Reason: nausea and vomiting) Qty: 15 0RF lisinopril 2.5 mg tablet Baqsimi 3 mg/actuation spray,non-aerosol 3 mg intranasal ONCE Qty: 2 0RF Rx Instructions: as a single dose insulin glargine [Lantus Solostar U-100 Insulin] 100 unit/mL (3 mL) insulin pen 18 unit subcut BID Qty: 45 3RF Rx Instructions: 18 units twice daily Lyumjev KwikPen U-100 Insulin 100 unit/mL insulin pen 4 unit subcut .before meals MDD 20 Qty: 15 0RF insulin degludec [Tresiba FlexTouch U-100] 100 unit/mL (3 mL) insulin pen 18 unit subcut BID (DME) FreeStyle Sandra 3 Sensor Device See Rx Instructions .Route Qty: 6 12RF Rx Instructions: once every 2 weeks (DME) FreeStyle Sandra 3 [place] Misc See Rx Instructions .Route Qty: 1 0RF Rx Instructions: As directed (DME) pen needle, diabetic [Easy Comfort Pen [place]] 31 gauge x 1/4 needle See Rx Instructions .Route Qty: 300 12RF Rx Instructions: 4 times daily omeprazole 20 mg capsule,delayed release(DR/EC) 20 mg PO DAILY 14 Days Qty: 14 0RF (DME) blood-glucose meter [Contour Next Gen Meter] Kit See Rx Instructions .Route Qty: 1 0RF Rx Instructions: Use to monitor BS (DME) Contour Next Test Strips Strip See Rx Instructions .Route Qty: 100 0RF Rx Instructions: Use to check BS twice daily (DME) lancets [Comfort EZ Lancets] 28 gauge misc See Rx Instructions .Route Qty: 400 0RF Rx Instructions: 3 times a day (DME) pen needle, diabetic [Comfort EZ Pen [place]] 32 gauge x 3/16 needle See Rx Instructions .Route Qty: 500 12RF Rx Instructions: four times daily Farxiga 5 mg tablet 5 mg PO DAILY Qty: 90 3RF Rx Instructions: [place]&ME Follow-up/Referrals: Jayne,Raman Farrar [Primary Care Provider] - 1 Day Clinical Impression: Abscess of buttock, right Stand Alone Forms: Work/School Release IP Time of Disposition: 11:20
[2025-03-10] MEDS: LIDOCAINE 1% LOCAL INJ 2 ML AMPUL 4 ML INFILTRATE (11:03)
== END 2025-03-10 11:25 | disposition home or self-care (01) ==
PROVIDERS: Emergency Provider Nurse Practitioner; PCP Internal Medicine Infectious Disease
DX: L02.31 Cutaneous abscess of buttock (principal); E11.9 Type 2 diabetes mellitus without complications; Z79.4 Long term (current) use of insulin
CPT/HCPCS: 10060; 82948; 87070; 87075; 99213; G0463; J2003

== ENCOUNTER 2025-04-21 08:37 | Emergency (ER) | payer SELFPAY ==
--- NOTE | 2025-04-21 08:50 | ED.NAVMDI ---
HPI - Nausea/Vomiting/Diarrhea General Chief complaint: Nausea/Vomiting/Diarrhea Stated complaint: n/v/mouth dry/dizziness Time Seen by Provider: 04/21/25 09:02 Source: patient Mode of arrival: ambulatory Limitations: no limitations History of Present Illness HPI Narrative: Sarah is a 29-year-old female patient presenting to the clinic today with complaints of nausea, vomiting, hot flashes, mid abdominal discomfort, dry mouth, body aches, headache, and dizziness x2 days. Denies any fevers or chills. States she feels dehydrated. Had some diarrhea a few days ago. Last bowel movement yesterday and it was soft. Has vomited four times yesterday and twice today. Last menstrual period was last month. She has not checked her blood sugar, eaten, or taking her insulin this morning. Took 1 dose of zofran yesterday and this helped her nausea/vomiting. History of insulin dependent type 2 diabetes, gastroenteritis, herpes, fatty liver, and PCOS. She lost her insurance and some of her medications regime has changed recently. Related Data Home Medications ?Medication ?Instructions ?Recorded ?Confirmed ?Last Taken ?Type etonogestrel 68 mg subdermal 1 implant subdermal ONCE 01/05/23 02/19/25 Unknown History implant (Nexplanon) insulin degludec 100 unit/mL (3 18 unit subcut BID 02/19/25 02/19/25 Unknown History mL) subcutaneous pen (Tresiba FlexTouch U-100 insulin) Allergies Allergy/AdvReac Type Severity Reaction Status Date / Time No Known Allergies Allergy Verified 04/21/25 08:51 Review of Systems Review of Systems: Pertinent positives per HPI. Patient denies any fever, chills, rash, visual changes, dizziness, cough, shortness of breath, chest pain, palpitations, diarrhea, constipation, or any urinary issues. [facility] Past Medical History Medical History Insulin dependent type 2 diabetes mellitus Stomach problems possible gastritis PCOS (polycystic ovarian syndrome) Fatty liver Herpes Surgical History Surgical History No significant past surgical history Family History Family History Grandparent Cancer spread everywhere, unknown cause Father Cerebrovascular accident Mother Hypertension Thyroid disorder Arthritis Social History Social History Smoking status: Never smoker Alcohol intake: current Alcohol use details: occasionally Substance use: current Substance use type: marijuana Do You Feel Safe in your Home?: Yes Lack of Transportation: No Lack of Food: Never True Current Housing: I Have Housing Concerned About Future Housing: No Difficulty Paying Gas/Electric Bills: No Difficulty Paying for Meds: No Currently Unemployed: No Education: High School Diploma/GED Difficulty w/ Childcare or Family Care: No Living arrangements: with family Comments At the time of my signature, I reviewed and agree with the nursing past medical, surgical, social, and family history. There is no relevant family history pertinent to the patient complaint. Exam Narrative: General: Well-developed, overweight, acutely ill-appearing Head: Normocephalic, atraumatic Eyes: Pupils equally round and reactive to light bilaterally, EOM intact, sclera and conjunctive clear, no discharge, lids normal Ears: TMs intact and clear, ear canals clear, no drainage, grossly hearing normal. Nose: Nares patent, no discharge, no inflammation, no sinus tenderness. Mouth: Oral pharynx without lesions or masses, good dentition, MMM. Neck: Supple, trachea midline, no enlargement of anterior or posterior cervical nodes, no thyroid masses or goiter palpable. Cardio: Regular rate and rhythm, s1 and s2 normal, no murmur appreciated. Resp: Clear to auscultation bilaterally, no rhonchi, rales, wheezing or rubs Abdomen: Soft, pliable, bowel sounds present in all quadrants, mid abdomen tender to palpation, no organomegly, no CVAT tenderness. Course Course Emergency Course: Portions of this record may have been created with voice recognition software. Level of Care: Express Care Visit Vital Signs Vital signs: Vital Signs Temperature 36.8 C 04/21/25 08:51 Pulse Rate 89 04/21/25 08:51 Respiratory Rate 20 04/21/25 08:51 Blood Pressure 130/85 04/21/25 08:51 Pulse Oximetry 100 04/21/25 08:51 Oxygen Delivery Room Air 04/21/25 08:51 Temperature 36.8 C 04/21/25 08:51 Pulse Rate 109 H 04/21/25 09:25 Respiratory Rate 20 04/21/25 08:51 Blood Pressure 126/78 04/21/25 09:25 Pulse Oximetry 100 04/21/25 08:51 Oxygen Delivery Room Air 04/21/25 08:51 Vital signs reviewed MDM - Nausea/Vomiting/Diarrhea MDM Narrative Medical decision making narrative: At the time of visit patient is resting comfortably on the exam table. Patient appears to be nontoxic. Complaints of nausea, vomiting, hot flashes, mid abdominal discomfort, dry mouth, body aches, headache, and dizziness x2 days. Denies any fevers or chills. States she feels dehydrated. Had some diarrhea a few days ago. Last bowel movement yesterday and it was soft. Has vomited four times yesterday and twice today. Last menstrual period was last month. She has not checked her blood sugar, eaten, or taking her insulin this morning. Took 1 dose of Zofran yesterday and this helped her nausea/vomiting. History of insulin dependent type 2 diabetes, gastroenteritis, herpes, fatty liver, and PCOS. She lost her insurance and some of her medications regime has changed recently. Urinalysis dip, bedside test, bedside glucose, orthostatic blood pressures, and Zofran ordered. Medications: 8 mg of Zofran ODT given in the clinic today for nausea. Labs: Urinalysis shows 2+ protein, 1+ ketone, 2+ blood, and 3+ glucose, bed side negative, blood sugar was 359. We will send urine for culture. Orthostatic blood pressures: Lying blood pressure was 129/77 with a heart rate of 84, sitting blood pressure was 139/91 with a heart rate of 101, standing blood pressure is 126/78 with a heart rate of 110. Plan: I suspect patient has acute nausea vomiting with uncontrolled diabetes with hyperglycemia. Patient's blood sugar was 359 and she has got 1+ ketone and 3+ glucose in her urine. Shared decision making was performed: Offer to send patient to the ER for further evaluation- IV fluids, labs, and hyperglycemic control. Patient declined going to the emergency room at this time and would like to go home and take her insulin and try oral hydration. She already has a prescription for Zofran at home-states she has plenty of this medication. Work note was given. Supportive measures were discussed with the patient and they voiced understanding discharge instructions and agrees to treatment plan. Return/ER precautions reviewed. Differential Diagnosis Differential diagnosis: Likely food poisoning, gastroenteritis, drug-induced nausea and vomiting, dehydration and other (Gastroparesis, type 2 diabetic) Lab Data Labs: Lab Results 04/21/25 04/21/25 04/21/25 Range/Units 08:53 09:14 09:24 POC Capillary Glucose 359 H (65-105) mg/dl POC Urine Color Yellow POC Urine Clarity Clear POC Urine pH 5.5 POC Ur Specif [place] 1.015 POC Urine Protein 2+ (Negative) POC Ur Glucose (UA) 3+ (Negative) POC Urine Ketones 1+ (Negative) POC Urine Blood 2+ (Negative) POC Urine Nitrite Negative (Negative) POC Urine Bilirubin Negative (Negative) POC Urine Urobilinogen 0.2 POC U Leukocyte Esteras Negative (Negative) POC Urine HCG, Qual Negative (Negative) POC Influenza A Ag Negative (Negative) POC Influenza B Ag Negative (Negative) POC SARS CoV-2 Ag Negative (Negative) Discharge Plan Discharge Clinical Impression: Urine ketones Uncontrolled diabetes mellitus with hyperglycemia Qualifiers: Diabetes mellitus type: type 2 Qualified Code(s): E11.65 - Type 2 diabetes mellitus with hyperglycemia Nausea & vomiting Qualifiers: Vomiting type: unspecified Qualified Code(s): R11.2 - Nausea with vomiting, unspecified Patient Disposition: Home Condition: Stable Instructions: Antibiotic Form, Blood and Urine Ketones (ED), Acute Nausea and Vomiting (ED), Type 2 Diabetes Management for Adults (ED) Additional Instructions: 8 mg of Zofran ODT was given in the clinic today. Urine shows 3+ glucose, 1+ ketone, 2+ blood, and 2+ protein in your urine. Blood sugar was 359 Check your blood sugar 2-3 times per day. Orthostatic blood pressures within normal limits however your heart rate increased from 84-110 when going from a lying to standing position Offer to send you to the ER for further evaluation/IV fluids and to bring down your blood sugar and you declined at this time Go home and increase fluids and stay well hydrated Take your scheduled diabetic medications when you get home Take Zofran as directed Follow-up with your PCP in 2-3 days if symptoms persist or go the emergency room if symptoms worsen Go to the emergency room if you develop nausea vomiting not controlled by the Zofran, worsening of abdominal pain, confused, weakness, lethargy, dehydration, chest pain, or shortness of breath Patient Language: Lebanese Prescriptions: No Action Nexplanon 68 mg Implant 1 implant SUBDERMAL ONCE Rx Instructions: as a single dose Baqsimi 3 mg/actuation spray,non-aerosol 3 mg intranasal ONCE Qty: 2 0RF Rx Instructions: as a single dose Lyumjev KwikPen U-100 Insulin 100 unit/mL insulin pen 4 unit subcut .before meals MDD 20 Qty: 15 0RF insulin degludec [Tresiba FlexTouch U-100] 100 unit/mL (3 mL) insulin pen 18 unit subcut BID (DME) FreeStyle Sandra 3 Sensor Device See Rx Instructions .Route Qty: 6 12RF Rx Instructions: once every 2 weeks (DME) FreeStyle Sandra 3 [place] Misc See Rx Instructions .Route Qty: 1 0RF Rx Instructions: As directed (DME) pen needle, diabetic [Easy Comfort Pen [place]] 31 gauge x 1/4 needle See Rx Instructions .Route Qty: 300 12RF Rx Instructions: 4 times daily omeprazole 20 mg capsule,delayed release(DR/EC) 20 mg PO DAILY 14 Days Qty: 14 0RF (DME) blood-glucose meter [Contour Next Gen Meter] Kit See Rx Instructions .Route Qty: 1 0RF Rx Instructions: Use to monitor BS (DME) Contour Next Test Strips Strip See Rx Instructions .Route Qty: 100 0RF Rx Instructions: Use to check BS twice daily (DME) lancets [Comfort EZ Lancets] 28 gauge misc See Rx Instructions .Route Qty: 400 0RF Rx Instructions: 3 times a day (DME) pen needle, diabetic [Comfort EZ Pen [place]] 32 gauge x 3/16 needle See Rx Instructions .Route Qty: 500 12RF Rx Instructions: four times daily Farxiga 5 mg tablet 5 mg PO DAILY Qty: 90 3RF Rx Instructions: [place]&ME Follow-up/Referrals: Jayne,Raman Farrar [Primary Care Provider] Stand Alone Forms: Work/School Release IP Time of Disposition: 09:42 Quality NIHSS Nursing Documentation ED NIHSS nursing documentation: reviewed/agree
[2025-04-21 08:51] VITALS: BP 130/85; PULSE 89; RESP 20; TEMP 36.8; O2SAT 100
[2025-04-21 09:13] VITALS: BP 129/77; PULSE 84
[2025-04-21 09:18] VITALS: BP 139/91; PULSE 101
[2025-04-21 09:25] VITALS: BP 126/78; PULSE 109
[2025-04-21] MEDS: ONDANSETRON HCL ODT 4 MG TABLET 8 MG SUBLINGUAL (09:28)
[2025-04-21 09:31] LABS: EDCOVIDSCREEN Negative (Negative); EDINFLUASCREEN Negative (Negative); EDINFLUBSCREEN Negative (Negative)
[2025-04-21 09:33] LABS: BEDSIDEPREGUCG Negative (Negative); EDUAAPPEAR Clear; EDUABILI Negative (Negative); EDUABLOOD 2+ (Negative); EDUACOLOR1 Yellow; EDUAGLUCOSE 3+ (Negative); EDUAKETONE 1+ (Negative); EDUALEUKO Negative (Negative); EDUANITRATE Negative (Negative); EDUAPH 5.5; EDUAPROTEIN 2+ (Negative); EDUASPGRAVITY 1.015; EDUAUROBILI 0.2
== END 2025-04-21 09:50 | disposition home or self-care (01) ==
PROVIDERS: Emergency Provider Nurse Practitioner Family; PCP Internal Medicine Infectious Disease
DX: R82.4 Acetonuria (principal); E11.65 Type 2 diabetes mellitus with hyperglycemia; R11.2 Nausea with vomiting, unspecified; Z20.822 Contact with and (suspected) exposure to COVID-19
CPT/HCPCS: 81003; 81025; 82948; 87086; 87426; 87804; 99213; A9270; G0463

== ENCOUNTER 2025-04-22 08:35 | Emergency (ER) | payer SELFPAY ==
[2025-04-22] VITALS (10 sets, daily range): BP systolic 123–152; BP diastolic 78–117; PULSE 72–89; RESP 13–24; TEMP 36.6; O2SAT 98–100
--- NOTE | ~2025-04-22 | CT_ITS ---
EXAMINATION: CT brain wo con DATE: 04/22/2025 08:54 INDICATION: Numbness. TECHNIQUE: Computed tomography (CT) of the head was performed without intravenous contrast. The mA was adjusted according to patient size. Iterative reconstruction technique was employed. The dose-length product was 605.33 mGy-cm. COMPARISON: None FINDINGS: There is no intracranial hemorrhage, acute infarction, or abnormal intracranial mass lesion. The ventricles are normal in size. The orbits are normal. The paranasal sinuses are clear. The mastoid air cells are normal. IMPRESSION: 1. Normal brain. Reviewed, dictated and finalized at location E. IMPRESSION: 1. Normal brain.
--- NOTE | ~2025-04-22 | XR_ITS ---
Clinical history:Stroke symptoms. EXAM:X-ray chest one view portable TECHNIQUE:Portable AP upright frontal image was obtained. Comparisons:05/03/2023 FINDINGS: Mild S-shaped curvature of the thoracolumbar spine. No pneumothorax. No pleural effusion. No free air under the diaphragm. Small opacities in the lower lungs. IMPRESSION: 1. Small opacities in the mid and lower lungs which represents atelectasis/scarring or infiltrates. If symptoms persist or worsen, consider a short-term follow-up study or additional imaging for further assessment. Reviewed, dictated and finalized at location Q. IMPRESSION: 1. Small opacities in the mid and lower lungs which represents atelectasis/scar ring or infiltrates. If symptoms persist or worsen, consider a short-term follow-up study or additio nal imaging for further assessment.
--- NOTE | 2025-04-22 08:36 | ECG_ITS ---
Test Date: 2025-04-22 08:46:43 Measurements Intervals [place] Rate: 89 P: 70 [place]: 135 QRS: 67 QRSD: 89 T: 21 QT: 361 QTc: 442 Interpretive Statements SINUS RHYTHM DELAYED PRECORDIAL R/S TRANSITION BASELINE ARTIFACT- I, II, III, AVR, AVL, AVF, V1, V4-V6 BORDERLINE ECG No previous ECG available for comparison Electronically Signed On 04-22-2025 10:10:52 CDT by Deven Delcid D.O.
--- NOTE | 2025-04-22 08:37 | ED.GENADULT ---
HPI - General Adult General Chief complaint: Neuro Symptoms/Deficit Stated complaint: numbness Time Seen by Provider: 04/22/25 08:36 History of Present Illness HPI narrative: 29-year-old female presents to the emergency department for evaluation for nausea vomiting for last 2 days, tingling for face bilaterally increased generalized weakness. Patient is diabetic. Related Data Home Medications ?Medication ?Instructions ?Recorded ?Confirmed ?Last Taken ?Type etonogestrel 68 mg subdermal 1 implant subdermal ONCE 01/05/23 02/19/25 Unknown History implant (Nexplanon) insulin degludec 100 unit/mL (3 18 unit subcut BID 02/19/25 02/19/25 Unknown History mL) subcutaneous pen (Tresiba FlexTouch U-100 insulin) Allergies Allergy/AdvReac Type Severity Reaction Status Date / Time No Known Allergies Allergy Verified 04/22/25 08:43 Review of Systems Review of Systems: All systems reviewed & are unremarkable except as noted in HPI and below PMFSH Past Medical History Medical History Insulin dependent type 2 diabetes mellitus Stomach problems possible gastritis PCOS (polycystic ovarian syndrome) Fatty liver Herpes Surgical History Surgical History No significant past surgical history Family History Family History Grandparent Cancer spread everywhere, unknown cause Father Cerebrovascular accident Mother Hypertension Thyroid disorder Arthritis Social History Social History Smoking status: Never smoker Alcohol intake: current Alcohol use details: occasionally Substance use: current Substance use type: marijuana Do You Feel Safe in your Home?: Yes Lack of Transportation: No Lack of Food: Never True Current Housing: I Have Housing Concerned About Future Housing: No Difficulty Paying Gas/Electric Bills: No Difficulty Paying for Meds: No Currently Unemployed: No Education: High School Diploma/GED Difficulty w/ Childcare or Family Care: No Living arrangements: with family Exam Narrative: APPEARANCE: Well appearing, no pain, no distress, well-nourished. HEAD: normocephalic, atraumatic. EYES: PERRLA/EOMI, conjunctivae clear. NOSE: Normal no drainage EARS:TMS clear with good light reflex. THROAT: Pharynx clear, no exudate. NECK: Supple. No adenopathy, no masses. RESPIRATORY: Airway patent, respirations nonlabored. Clear to auscultation bilaterally, no rales, rhonchi, wheezing. CARDIOVASCULAR: Regular rate and rhythm without murmurs rubs or gallops. ABDOMINAL: Soft, nontender, nondistended, normal bowel sounds MUSCULOSKELETAL: Moves all extremities. Strength/ROM intact, No edema, No calf tenderness. NEURO: Alert. Cranial nerves II through XII intact. Grossly intact SKIN: Warm, dry. Normal Color Course Vital Signs Vital signs: Vital Signs Temperature 97.8 F 04/22/25 08:40 Pulse Rate 85 04/22/25 08:40 Respiratory Rate 16 04/22/25 08:40 Blood Pressure 152/103 H 04/22/25 08:40 Pulse Oximetry 100 04/22/25 08:40 Oxygen Delivery Room Air 04/22/25 08:40 Temperature 97.8 F 04/22/25 08:40 Pulse Rate 89 04/22/25 12:29 Respiratory Rate 18 04/22/25 12:29 Blood Pressure 133/91 H 04/22/25 12:29 Pulse Oximetry 100 04/22/25 12:29 Oxygen Delivery Room Air 04/22/25 08:40 Medical Decision Making [facility] Narrative Medical decision making narrative: 29-year-old female history of diabetes presents emergency department for evaluation for nausea vomiting for the last 4 days along with peer or tingling. Patient was afebrile but did have a leukocytosis of 14.3 hemoglobin of 16.0. Patient does have elevated blood sugar of 245 and an anion gap of 14. No evidence of urinary tract infection the urinary analysis. Head CT was negative for acute intracranial abnormality. Chest x-ray shows no acute cardiopulmonary abnormality. On re-evaluation patient states she does feel improved. Patient was treated with 2 L of lactated Ringer's. Patient was advised to follow a clear liquid diet for the next few days and she will provided Zofran for nausea control. All questions concerns were addressed patient was comfortable the plan for discharge and close follow-up. Patient describes having perioral tingling so I do suspect she was having a component of hyperventilation secondary to her GI illness. Differential Diagnosis Differential Diagnosis: CVA, TIA, anxiety, hyperventilation, DKA, dehydration, enteritis, colitis, intractable nausea and vomiting Vital Signs Vital Signs: Vital Signs Temperature 97.8 F 04/22/25 08:40 Pulse Rate 85 04/22/25 08:40 Respiratory Rate 16 04/22/25 08:40 Blood Pressure 152/103 H 04/22/25 08:40 Pulse Oximetry 100 04/22/25 08:40 Oxygen Delivery Room Air 04/22/25 08:40 Temperature 97.8 F 04/22/25 08:40 Pulse Rate 89 04/22/25 12:29 Respiratory Rate 18 04/22/25 12:29 Blood Pressure 133/91 H 04/22/25 12:29 Pulse Oximetry 100 04/22/25 12:29 Oxygen Delivery Room Air 04/22/25 08:40 Lab Data Lab results reviewed: Yes I reviewed the patient's lab results. 04/22/25 08:47 04/22/25 08:47 Labs: Lab Results 04/22/25 04/22/25 04/22/25 Range/Units 08:40 08:47 09:55 WBC 14.3 H (4.5-10.0) K/mm3 RBC 5.41 H (4.2-5.4) M/mm3 Hgb 16.0 H (12.0-15.0) g/dL Hct 46.6 (37.0-47.0) % MCV 86.1 (80-100) fl MCH 29.6 (26-34) pg MCHC 34.3 (32-36) g/dl RDW 12.3 (11.5-14.5) % Plt Count 192 (150-375) k/mm3 MPV 11.6 H (7.4-10.4) fl Immature Gran % (Auto) 0.6 H (0-0.5) % Neut % (Auto) 69.2 (45.5-73.1) % Lymph % (Auto) 22.6 (18.3-44.2) % [place] % (Auto) 6.6 (2.6-8.5) % Eos % (Auto) 0.7 (0-4.4) % Baso % (Auto) 0.3 (0.2-1.2) % Lymph # (Auto) 3.23 H (0.9-3.2) K/mm3 [place] # (Auto) 0.9 H (0.1-0.6) K/mm3 Eos # (Auto) 0.1 (0-0.3) K/mm3 Baso # (Auto) 0.0 (0.0-0.1) K/mm3 Abs Immat Gran (auto) 0.09 H (0.00-0.031) K/mm3 Absolute Neuts (auto) 9.9 H (1.3-6.7) K/mm3 Absolute Nucleated RBC 0.000 (0.0-0.012) K/mm3 Nucleated RBC % 0.0 (0.0-0.2) % PT 14.5 (11.1-14.7) Seconds INR 1.1 APTT 28.8 (22.3-36.8) Seconds Sodium 133 L (137-145) mmol/L Potassium 4.1 (3.4-5.0) mmol/L Chloride 99 (98-107) mmol/L Carbon Dioxide 20 L (22-30) mmol/L Anion Gap 14 H (4-12) mmol/L BUN 17 (7-17) mg/dL Creatinine 0.59 L (0.7-1.0) mg/dL Estim Creat Clear Calc 109 ml/min Estimated GFR > 60 (59 - ) Glucose 245 H (65-110) mg/dL POC Capillary Glucose 259 H (65-105) mg/dl Calcium 9.5 (8.4-10.2) mg/dL Total Bilirubin 1.3 (0.2-1.3) mg/dL AST 36 (14-36) U/L ALT 35 (6-35) U/L Alkaline Phosphatase 92 (38-126) U/L Troponin I 0.019 (0.000-0.034) ng/mL Total Protein 9.2 H (6.3-8.2) g/dL Albumin 4.6 (3.5-5.1) g/dL Urine Color Yellow (Yellow) Urine Appearance Clear (Clear) Urine pH 6.0 (5.0-9.0) Ur Specific [place] 1.023 (1.001-1.035) Urine Protein 2+ H (Negative) mg/dL Urine Glucose (UA) 3+ H (Negative) mg/dL Urine Ketones 3+ H (Negative) mg/dL Ur Blood (Man) 2+ H (Negative) Urine Nitrate Negative (Negative) Urine Bilirubin Negative (Negative) Urine Urobilinogen 1.0 (<2.0) mg/dL Leukocyte Esterase Rfl Negative (Negative) TIARA/UL Urine RBC 0-2 (0-2) /hpf Urine WBC 0-5 (0-3) /hpf Ur Squamous Epith Cells None seen (Few) /hpf Urine Bacteria None seen /hpf Urine Casts 0-2 POC Urine HCG, Qual (Negative) 04/22/25 Range/Units 09:58 WBC (4.5-10.0) K/mm3 RBC (4.2-5.4) M/mm3 Hgb (12.0-15.0) g/dL Hct (37.0-47.0) % MCV (80-100) fl MCH (26-34) pg MCHC (32-36) g/dl RDW (11.5-14.5) % Plt Count (150-375) k/mm3 MPV (7.4-10.4) fl Immature Gran % (Auto) (0-0.5) % Neut % (Auto) (45.5-73.1) % Lymph % (Auto) (18.3-44.2) % [place] % (Auto) (2.6-8.5) % Eos % (Auto) (0-4.4) % Baso % (Auto) (0.2-1.2) % Lymph # (Auto) (0.9-3.2) K/mm3 [place] # (Auto) (0.1-0.6) K/mm3 Eos # (Auto) (0-0.3) K/mm3 Baso # (Auto) (0.0-0.1) K/mm3 Abs Immat Gran (auto) (0.00-0.031) K/mm3 Absolute Neuts (auto) (1.3-6.7) K/mm3 Absolute Nucleated RBC (0.0-0.012) K/mm3 Nucleated RBC % (0.0-0.2) % PT (11.1-14.7) Seconds INR APTT (22.3-36.8) Seconds Sodium (137-145) mmol/L Potassium (3.4-5.0) mmol/L Chloride (98-107) mmol/L Carbon Dioxide (22-30) mmol/L Anion Gap (4-12) mmol/L BUN (7-17) mg/dL Creatinine (0.7-1.0) mg/dL Estim Creat Clear Calc ml/min Estimated GFR (59 - ) Glucose (65-110) mg/dL POC Capillary Glucose (65-105) mg/dl Calcium (8.4-10.2) mg/dL Total Bilirubin (0.2-1.3) mg/dL AST (14-36) U/L ALT (6-35) U/L Alkaline Phosphatase (38-126) U/L Troponin I (0.000-0.034) ng/mL Total Protein (6.3-8.2) g/dL Albumin (3.5-5.1) g/dL Urine Color (Yellow) Urine Appearance (Clear) Urine pH (5.0-9.0) Ur Specific [place] (1.001-1.035) Urine Protein (Negative) mg/dL Urine Glucose (UA) (Negative) mg/dL Urine Ketones (Negative) mg/dL Ur Blood (Man) (Negative) Urine Nitrate (Negative) Urine Bilirubin (Negative) Urine Urobilinogen (<2.0) mg/dL Leukocyte Esterase Rfl (Negative) TIARA/UL Urine RBC (0-2) /hpf Urine WBC (0-3) /hpf Ur Squamous Epith Cells (Few) /hpf Urine Bacteria /hpf Urine Casts POC Urine HCG, Qual Negative (Negative) Imaging Data Radiologist's impression: Impressions Head CT 04/22/25 08:54 IMPRESSION: 1. Normal brain. Chest X-Ray 04/22/25 09:26 IMPRESSION: 1. Small opacities in the mid and lower lungs which represents atelectasis/scarring or infiltrates. If symptoms persist or worsen, consider a short-term follow-up study or additional imaging for further assessment. Discharge Plan Discharge Clinical Impression: Nausea & vomiting Patient Disposition: Home Condition: Stable Instructions: Antibiotic Form, Clear Liquid Diet (ED), Acute Nausea and Vomiting (DC) Additional Instructions: Clear liquid diet for the next 1-3 days. Zofran as needed for nausea control. Have close follow-up with your primary care physician. If you have any worsening symptoms then please call or return to the emergency department. Patient Language: Serbian Prescriptions: New ondansetron 4 mg tablet,disintegrating 4 mg PO Q8H PRN (Reason: nausea and vomiting) Qty: 14 0RF No Action Nexplanon 68 mg Implant 1 implant SUBDERMAL ONCE Rx Instructions: as a single dose Baqsimi 3 mg/actuation spray,non-aerosol 3 mg intranasal ONCE Qty: 2 0RF Rx Instructions: as a single dose Lyumjev KwikPen U-100 Insulin 100 unit/mL insulin pen 4 unit subcut .before meals MDD 20 Qty: 15 0RF insulin degludec [Tresiba FlexTouch U-100] 100 unit/mL (3 mL) insulin pen 18 unit subcut BID (DME) FreeStyle Sandra 3 Sensor Device See Rx Instructions .Route Qty: 6 12RF Rx Instructions: once every 2 weeks (DME) FreeStyle Sandra 3 [place] Misc See Rx Instructions .Route Qty: 1 0RF Rx Instructions: As directed (DME) pen needle, diabetic [Easy Comfort Pen [place]] 31 gauge x 1/4 needle See Rx Instructions .Route Qty: 300 12RF Rx Instructions: 4 times daily omeprazole 20 mg capsule,delayed release(DR/EC) 20 mg PO DAILY 14 Days Qty: 14 0RF (DME) blood-glucose meter [Contour Next Gen Meter] Kit See Rx Instructions .Route Qty: 1 0RF Rx Instructions: Use to monitor BS (DME) Contour Next Test Strips Strip See Rx Instructions .Route Qty: 100 0RF Rx Instructions: Use to check BS twice daily (DME) lancets [Comfort EZ Lancets] 28 gauge misc See Rx Instructions .Route Qty: 400 0RF Rx Instructions: 3 times a day (DME) pen needle, diabetic [Comfort EZ Pen [place]] 32 gauge x 3/16 needle See Rx Instructions .Route Qty: 500 12RF Rx Instructions: four times daily Farxiga 5 mg tablet 5 mg PO DAILY Qty: 90 3RF Rx Instructions: [place]&ME Follow-up/Referrals: Jayne,Raman Farrar [Primary Care Provider] Stand Alone Forms: Work/School Release IP
[2025-04-22 08:54] LABS: Hematocrit 46.6 % (37.0-47.0); Hemoglobin 16.0 g/dL (12.0-15.0); Immature Granulocyte Percent A 0.6 % (0-0.5); Lymphocytes Absolute Auto 3.23 K/mm3 (0.9-3.2); Mean Corpuscular HGB Conc 34.3 g/dl (32-36); Mean Corpuscular Hemoglobin 29.6 pg (26-34); Mean Corpuscular Volume 86.1 fl (80-100); Nucleated Red Blood Cells Absolute Auto 0.000 K/mm3 (0.0-0.012); Nucleated Red Blood Cells Perc 0.0 % (0.0-0.2); Platelet Count Result 192 k/mm3 (150-375); Red Blood Count 5.41 M/mm3 (4.2-5.4); White Blood Count 14.3 K/mm3 (4.5-10.0)
[2025-04-22] MEDS: LACTATED RINGERS 1,000 ML 999 ML IV CONT ×2 (08:55→08:56)
[2025-04-22 09:05] LABS: Alanine Aminotransferase 35 U/L (6-35); Albumin Level 4.6 g/dL (3.5-5.1); Alkaline Phosphatase 92 U/L (38-126); Anion Gap 14 mmol/L (4-12); Aspartate Amino Transferase 36 U/L (14-36); Bilirubin,Total 1.3 mg/dL (0.2-1.3); Blood Urea Nitrogen 17 mg/dL (7-17); Calcium 9.5 mg/dL (8.4-10.2); Carbon Dioxide 20 mmol/L (22-30); Chloride 99 mmol/L (98-107); Estimated CRCL calculation 109 ml/min; Estimated Glomerular Filt Rate > 60; Glucose 245 mg/dL (65-110); INR 1.1; Potassium 4.1 mmol/L (3.4-5.0); Prothrombin Time 14.5 Seconds (11.1-14.7); Sodium 133 mmol/L (137-145); Total Protein 9.2 g/dL (6.3-8.2)
[2025-04-22 09:06] LABS: Partial Thromboplastin Time 28.8 Seconds (22.3-36.8)
[2025-04-22 09:16] LABS: Troponin I 0.019 ng/mL (0.000-0.034)
[2025-04-22 09:59] LABS: BEDSIDEPREGUCG Negative (Negative)
[2025-04-22 10:17] LABS: Add Urine Microscopic? YES; Appearance Urine Clear (Clear); Glucose Urine UA 3+ mg/dL (Negative); Leukocyte Esterase Ur Negative LEU/UL (Negative); Nitrate Urine Negative (Negative); Non Pathogenic Casts 0-2; Specific Grav Ur 1.023 (1.001-1.035)
== END 2025-04-22 12:41 | disposition home or self-care (01) ==
PROVIDERS: Emergency Provider Emergency Medicine; PCP Internal Medicine Infectious Disease
DX: R11.2 Nausea with vomiting, unspecified (principal); D72.829 Elevated white blood cell count, unspecified; E11.65 Type 2 diabetes mellitus with hyperglycemia
CPT/HCPCS: 36415; 70450; 71045; 80053; 81001; 81025; 82948; 84484; 85025; 85610; 85730; 93005; 96360; 99284; J7120

== ENCOUNTER 2025-06-17 12:13 | Emergency (ER) | payer SELFPAY ==
[2025-06-17 12:20] VITALS: BP 143/89; PULSE 93; RESP 18; TEMP 36.3; O2SAT 100
--- NOTE | 2025-06-17 12:49 | ED_ITS ---
HPI - Neck Pain/Injury General Chief Complaint: Neck Pain/Injury Stated Complaint: neck pain Time Seen by Provider: 06/17/25 12:49 Source: patient Mode of arrival: ambulatory Limitations: no limitations History of Present Illness HPI Narrative: 29 yo F presents with R sided neck pain that she noticed when waking up. Denies injury. Has had similar pain int he past. Took robaxin but not helping. Pain radiates to R ear, wants checked for ear infection. All systems reviewed and negative except as noted above. Related Data Home Medications ?Medication ?Instructions ?Recorded ?Confirmed ?Last Taken ?Type etonogestrel 68 mg subdermal 1 implant subdermal ONCE 01/05/23 02/19/25 Unknown History implant (Nexplanon) insulin degludec 100 unit/mL (3 18 unit subcut BID 02/0606/17/25 Unknown History mL) subcutaneous pen (Tresiba FlexTouch U-100 insulin) Allergies Allergy/AdvReac Type Severity Reaction Status Date / Time No Known Allergies Allergy Verified 06/17/25 12:17 [facility] Past Medical History Medical History Insulin dependent type 2 diabetes mellitus Stomach problems possible gastritis PCOS (polycystic ovarian syndrome) Fatty liver Herpes Surgical History Surgical History No significant past surgical history Family History Family History Grandparent Cancer spread everywhere, unknown cause Father Cerebrovascular accident Mother Hypertension Thyroid disorder Arthritis Social History Social History Smoking status: Never smoker Alcohol intake: current Alcohol use details: occasionally Substance use: current Substance use type: marijuana Lack of Transportation: No Lack of Food: Never True Current Housing: I Have Housing Concerned About Future Housing: No Difficulty Paying Gas/Electric Bills: No Difficulty Paying for Meds: No Currently Unemployed: No Education: High School Diploma/GED Difficulty w/ Childcare or Family Care: No Living arrangements: with family Comments At time of signature, agree with nursing past medical, surgical, social and family history. There is no relevant family history pertinent to the presenting complaint. Exam Narrative: GENERAL: This is a well-nourished, well-developed patient, in no apparent distress. HEAD: normocephalic, atraumatic. EYES: PERRL. Sclera clear/white. Vision is grossly intact. EARS: External ears normal, auditory canals clear and without drainage, TMs normal without perforation. Hearing grossly intact. NOSE: External nose normal with no obvious nasal discharge, nares without redness, no rhinorrhea. THROAT: Mucous membranes moist, posterior pharynx clear. NECK: Neck supple, tender R trapezius without lymphadenopathy, masses or thyromegaly. ROM decreased due to pain. CARDIOVASCULAR: Regular rate and rhythm without murmurs, gallops, or rubs. RESPIRATORY: Clear to auscultation. Breath sounds equal bilaterally. No wheezes, rales, or rhonchi. SKIN: warm, Dry, intact with no suspicious lesions or rash, good texture and turgor. NEURO: awake, alert, and oriented to person, place and time. There were no obvious focal neurologic abnormalities. EXTREMITIES: No joint tenderness, effusion, or edema noted. Course Course Level of Care: Express Care Visit Vital Signs Vital signs: Reviewed MDM MDM Narrative Medical decision making narrative: Patient is well-appearing, nontoxic. Mild pain distress. Will treat patient neck pain with ibuprofen, cyclobenzaprine and Medrol Dosepak. Instructed not to drive while taking muscle relaxant. Patient voices understanding. Will go to the ER for any worsening of pain. Differential Diagnosis Differential Diagnosis: Differential diagnostic considerations for neck injury/pain include disc disorder of cervical region, whiplash injury to neck, closed subluxation of cervical spine, fracture of cervical spine without lesion of spinal cord, cervical radiculopathy, vertebral artery dissection torticollis, cervical spondylosis, strain of neck muscle. Discharge Plan Discharge Clinical Impression: Cervical muscle strain Patient Disposition: Home Condition: Stable Instructions: Cervical Strain (ED) Additional Instructions: Take medications as prescribed. Cyclobenzaprine as a muscle relaxant may cause drowsiness. Do not take this medication while driving. Alternate between ice and heat. Do stretching exercises as tolerated. Follow-up with your primary care physician if pain is not improving. Patient Language: Hungarian Prescriptions: New cyclobenzaprine 10 mg tablet 10 mg PO BID PRN (Reason: muscle spasm) Qty: 30 0RF ibuprofen 600 mg tablet 600 mg PO Q6H PRN (Reason: pain) Qty: 30 0RF methylprednisolone [Medrol (Nik)] 4 mg tablets,dose pack See Rx Instructions PO .COMPLEX Qty: 21 0RF Rx Instructions: orally per package directions No Action Nexplanon 68 mg Implant 1 implant SUBDERMAL ONCE Rx Instructions: as a single dose Baqsimi 3 mg/actuation spray,non-aerosol 3 mg intranasal ONCE Qty: 2 0RF Rx Instructions: as a single dose Lyumjev KwikPen U-100 Insulin 100 unit/mL insulin pen 4 unit subcut .before meals MDD 20 Qty: 15 0RF insulin degludec [Tresiba FlexTouch U-100] 100 unit/mL (3 mL) insulin pen 18 unit subcut BID (DME) FreeStyle Sandra 3 Sensor Device See Rx Instructions .Route Qty: 6 12RF Rx Instructions: once every 2 weeks (DME) FreeStyle Sandra 3 [place] Misc See Rx Instructions .Route Qty: 1 0RF Rx Instructions: As directed (DME) pen needle, diabetic [Easy Comfort Pen [place]] 31 gauge x 1/4 needle See Rx Instructions .Route Qty: 300 12RF Rx Instructions: 4 times daily omeprazole 20 mg capsule,delayed release(DR/EC) 20 mg PO DAILY 14 Days Qty: 14 0RF (DME) blood-glucose meter [Contour Next Gen Meter] Kit See Rx Instructions .Route Qty: 1 0RF Rx Instructions: Use to monitor BS (DME) Contour Next Test Strips Strip See Rx Instructions .Route Qty: 100 0RF Rx Instructions: Use to check BS twice daily (DME) lancets [Comfort EZ Lancets] 28 gauge misc See Rx Instructions .Route Qty: 400 0RF Rx Instructions: 3 times a day (DME) pen needle, diabetic [Comfort EZ Pen [place]] 32 gauge x 3/16 needle See Rx Instructions .Route Qty: 500 12RF Rx Instructions: four times daily Farxiga 5 mg tablet 5 mg PO DAILY Qty: 90 3RF Rx Instructions: [place]&ME Follow-up/Referrals: Jayne,Raman Farrar [Primary Care Provider] Stand Alone Forms: Work/School Release IP Time of Disposition: 12:59
== END 2025-06-17 13:03 | disposition home or self-care (01) ==
PROVIDERS: Emergency Provider Nurse Practitioner Family; PCP Internal Medicine Infectious Disease
DX: S16.1XXA Strain of muscle, fascia and tendon at neck level, initial encounter (principal); X58.XXXA Exposure to other specified factors, initial encounter; E11.9 Type 2 diabetes mellitus without complications; Z79.4 Long term (current) use of insulin; E28.2 Polycystic ovarian syndrome; K76.0 Fatty (change of) liver, not elsewhere classified; F12.90 Cannabis use, unspecified, uncomplicated
CPT/HCPCS: 99213; G0463

== ENCOUNTER 2025-07-10 12:51 | Emergency (ER) | payer SELFPAY ==
[2025-07-10 12:58] VITALS: BP 140/88; PULSE 91; RESP 18; TEMP 36.4; O2SAT 99
--- NOTE | 2025-07-10 13:28 | ED_ITS ---
HPI - General Adult General Chief complaint: Extremity Problem,Nontraumatic Stated complaint: Left Hand Numbness Source: patient Mode of arrival: ambulatory Limitations: no limitations History of Present Illness HPI narrative: This is a 29 y/o female presents to the urgent care with reports of numbness and tingling in the right index finger and palm at times. 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 she reports this started about two weeks ago. she has tingling and at times stinging pain in the finger and palm. rest and cold water or ice helps. patient denies any other distress or concerns Onset (ago): week(s) (2) Location: upper extremity Radiation: non-radiation Severity: mild Severity scale (1-10): 2 Quality: burning Pain Consistency: constant Relieving factors: cold therapy and rest Exacerbating factors: none Associated symptoms: denies other symptoms Treatments prior to arrival: none Related Data Home Medications ?Medication ?Instructions ?Recorded ?Confirmed ?Last Taken ?Type etonogestrel 68 mg subdermal 1 implant subdermal ONCE 01/05/23 02/19/25 Unknown History implant (Nexplanon) insulin degludec 100 unit/mL (3 18 unit subcut BID 02/0606/17/25 Unknown History mL) subcutaneous pen (Tresiba FlexTouch U-100 insulin) Allergies Allergy/AdvReac Type Severity Reaction Status Date / Time No Known Allergies Allergy Verified 07/10/25 13:05 Review of Systems Review of Systems: All systems reviewed & are unremarkable except as noted in HPI and below PMFSH Past Medical History Medical History Insulin dependent type 2 diabetes mellitus Stomach problems possible gastritis PCOS (polycystic ovarian syndrome) Fatty liver Herpes Surgical History Surgical History No significant past surgical history Family History Family History Grandparent Cancer spread everywhere, unknown cause Father Cerebrovascular accident Mother Hypertension Thyroid disorder Arthritis Social History Social History Smoking status: Never smoker Alcohol intake: current Alcohol use details: occasionally Substance use: current Substance use type: marijuana Lack of Transportation: No Lack of Food: Never True Current Housing: I Have Housing Concerned About Future Housing: No Difficulty Paying Gas/Electric Bills: No Difficulty Paying for Meds: No Currently Unemployed: No Education: High School Diploma/GED Difficulty w/ Childcare or Family Care: No Living arrangements: with family Exam Const: General: healthy appearing Nutritional Appearance: well nourished Orientation/consciousness: patient oriented x3 HENMT: Head: normal to inspection Ears: external ears normal Face/Nose/Sinus: Normal external nose present Face and sinus: normal facial exam Mouth: Yes Normal oral and palatal mucosa present Teeth and gingiva: dentition normal Throat: posterior oropharynx normal Eyes: Conjunctivae: conjunctivae normal Pupils: Equal, round and reactive pupils present EOM: EOMs intact bilaterally Neck: Neck: normal visual inspection, no lymphadenopathy and no meningeal signs Chest: Chest palpation & inspection: normal inspection of the chest Resp: Effort & Inspection: normal respiratory effort Auscultation: clear to auscultation bilaterally Cardio: Rate: regular rate Rhythm: regular rhythm GI: GI Palp: Yes Soft to palpation Auscultation: normal bowel sounds Skin: General skin exam: normal color Rashes: no rashes Wounds: no wounds Neuro: General: patient oriented x3 Cranial nerves: Yes Nystagmus not present Speech: normal speech Gait exam (Neuro): Normal gait present Extrem: General: normal to inspection, no clubbing, cyanosis or edema and no pedal edema Psych: Mental Status: mental status grossly normal Affect: normal affect Attitude: cooperative Course Course Emergency Course: This is a 29 y/o female presents to the urgent care with reports of numbness and tingling in the right index finger and palm at times. 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 she reports this started about two weeks ago. she has tingling and at times stinging pain in the finger and palm. rest and cold water or ice helps. patient denies any other distress or concerns. vital signs are stable neurovascular status is intact range of motion is intact. 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 Answered her questions to her satisfaction she is agreeable to this plan. answered all questions to satisfaction, patient denies any further needs or concerns to be addressed prior to discharge. Level of Care: Express Care Visit Vital Signs Vital signs: Vital Signs Temperature 97.5 F L 07/10/25 12:58 Pulse Rate 91 07/10/25 12:58 Respiratory Rate 18 07/10/25 12:58 Blood Pressure 140/88 07/10/25 12:58 Pulse Oximetry 99 07/10/25 12:58 Oxygen Delivery Room Air 07/10/25 12:58 Temperature 97.5 F L 07/10/25 12:58 Pulse Rate 91 07/10/25 12:58 Respiratory Rate 18 07/10/25 12:58 Blood Pressure 140/88 07/10/25 12:58 Pulse Oximetry 99 07/10/25 12:58 Oxygen Delivery Room Air 07/10/25 12:58 MDM MDM Narrative Medical decision making narrative: This is a 29 y/o female presents to the urgent care with reports of numbness and tingling in the right index finger and palm at times. 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 she reports this started about two weeks ago. she has tingling and at times stinging pain in the finger and palm. rest and cold water or ice helps. patient denies any other distress or concerns. vital signs are stable neurovascular status is intact range of motion is intact. 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 Answered her questions to her satisfaction she is agreeable to this plan. answered all questions to satisfaction, patient denies any further needs or concerns to be addressed prior to discharge. Differential Diagnosis Differential Diagnosis: Carpal tunnel, neuropathy Medical Records I have reviewed the following patient records and this information was taken into consideration when formulating the assessment and plan.: previous labs and previous clinic visits Lab Data MDM Lab Attestation statement: I personally reviewed the patient's lab results. Discharge Plan Discharge Clinical Impression: Numbness and tingling in right hand Patient Disposition: Home Condition: Stable Instructions: Paresthesia (ED) Additional Instructions: follow-up with her primary care provider in next 2-3 days for further evaluation and exam Consider further testing including lab work, nerve conduction study, orthopedic referral. Return to the emergency department any worrisome sign or symptom Patient Language: Liberian Prescriptions: No Action Nexplanon 68 mg Implant 1 implant SUBDERMAL ONCE Rx Instructions: as a single dose cyclobenzaprine 10 mg tablet 10 mg PO BID PRN (Reason: muscle spasm) Qty: 30 0RF ibuprofen 600 mg tablet 600 mg PO Q6H PRN (Reason: pain) Qty: 30 0RF methylprednisolone [Medrol (Nik)] 4 mg tablets,dose pack See Rx Instructions PO .COMPLEX Qty: 21 0RF Rx Instructions: orally per package directions Baqsimi 3 mg/actuation spray,non-aerosol 3 mg intranasal ONCE Qty: 2 0RF Rx Instructions: as a single dose Lyumjev KwikPen U-100 Insulin 100 unit/mL insulin pen 4 unit subcut .before meals MDD 20 Qty: 15 0RF insulin degludec [Tresiba FlexTouch U-100] 100 unit/mL (3 mL) insulin pen 18 unit subcut BID (DME) FreeStyle Sandra 3 Sensor Device See Rx Instructions .Route Qty: 6 12RF Rx Instructions: once every 2 weeks (DME) FreeStyle Sandra 3 [place] Misc See Rx Instructions .Route Qty: 1 0RF Rx Instructions: As directed (DME) pen needle, diabetic [Easy Comfort Pen [place]] 31 gauge x 1/4 needle See Rx Instructions .Route Qty: 300 12RF Rx Instructions: 4 times daily omeprazole 20 mg capsule,delayed release(DR/EC) 20 mg PO DAILY 14 Days Qty: 14 0RF (DME) blood-glucose meter [Contour Next Gen Meter] Kit See Rx Instructions .Route Qty: 1 0RF Rx Instructions: Use to monitor BS (DME) Contour Next Test Strips Strip See Rx Instructions .Route Qty: 100 0RF Rx Instructions: Use to check BS twice daily (DME) lancets [Comfort EZ Lancets] 28 gauge misc See Rx Instructions .Route Qty: 400 0RF Rx Instructions: 3 times a day (DME) pen needle, diabetic [Comfort EZ Pen [place]] 32 gauge x 3/16 needle See Rx Instructions .Route Qty: 500 12RF Rx Instructions: four times daily Farxiga 5 mg tablet 5 mg PO DAILY Qty: 90 3RF Rx Instructions: [place] Follow-up/Referrals: Jayne,Raman Farrar [Primary Care Provider] Stand Alone Forms: Work/School Release IP Time of Disposition: 13:37
== END 2025-07-10 13:41 | disposition home or self-care (01) ==
PROVIDERS: Emergency Provider Nurse Practitioner Family; PCP Internal Medicine Infectious Disease
DX: R20.0 Anesthesia of skin (principal); R20.2 Paresthesia of skin; F12.90 Cannabis use, unspecified, uncomplicated; E11.9 Type 2 diabetes mellitus without complications; Z79.4 Long term (current) use of insulin; E28.2 Polycystic ovarian syndrome; K76.0 Fatty (change of) liver, not elsewhere classified
CPT/HCPCS: 99211; G0463